=== PATIENT | female | born 1975 | race African-American/Black ===

== ENCOUNTER 2019-11-26 22:11 | Emergency (ER) | payer OTHER, SELFPAY ==
[2019-11-26 22:12] VITALS: BP 196/111; PULSE 106; RESP 18; TEMP 37.5; O2SAT 100; BMI 29.3
--- NOTE | 2019-11-26 22:20 | EKG12_ITS ---
Test Reason : CP Blood Pressure : / mmHG Vent. Rate : 093 BPM Atrial Rate : 093 BPM P-R Int : 146 ms QRS Dur : 074 ms QT Int : 364 ms P-R-T Axes : 046 013 029 degrees QTc Int : 452 ms Normal sinus rhythm Normal ECG Confirmed by AYESHA YAN ([id number]), publishing editor TIMOTHY LANGFORD ([id number]) on 11/30/2019 10:35:03 AM Referred By: No Primary Care Physician Confirmed By:AYESHA YAN
--- NOTE | 2019-11-26 22:30 | ED.RN ---
NO OLD EKG
[2019-11-26 22:33] VITALS: PULSE 91; RESP 19; O2SAT 100
--- NOTE | 2019-11-26 22:36 | US_ITS ---
STUDY: ABDOMINAL ULTRASOUND - RIGHT UPPER QUADRANT REASON FOR VISIT: Female, 43 years old Question of sludge in gallbladder, solitary versus multiple gallbladder calculi. History of pain nausea and vomiting TECHNIQUE: Ultrasound evaluation of the right upper quadrant was performed with real-time and static fairchild-scale imaging. TECHNICAL QUALITY: Adequate. COMPARISON: None. FINDINGS: Liver: The liver measures 70 cm. There is increased echogenicity consistent with fatty infiltration. The bile ducts are within normal limits. There is hepatic color flow. The direction of portal flow is hepatopetal. There is no demonstrated mass lesion. Gallbladder: Normal distended gallbladder. The gallbladder wall measures 2.4 mm. There is a negative sonographic Poole''s sign. There is no pericholecystic fluid. There is biliary sludge dependent within the gallbladder. There there is a cluster of echogenic foci which may represent a single complex gallbladder calculus of 1.3 cm versus multiple smaller adjacent calculi. Common Bile Duct (C.B.D.): The common bile duct measures 2.6 mm. Pancreas: Normal size of the head, body and tail of the pancreas. There is normal echogenicity of the pancreas. There is no demonstrated pancreatic mass or cyst. Right Kidney: Normal size of the right kidney. The right kidney measures 10.5 x 6 x 4.5 cm. Normal renal cortex. The right cortex measures 1.4 cm. There is no demonstrated renal mass or cyst. There is no right hydronephrosis. US/Gallbladder IMPRESSION: Gallbladder sludge and conglomeration of complex calcification either a single calculus versus adjacent multiple smaller calculi. Mild hepatomegaly and hepatic steatosis. No gallbladder inflammation, hydronephrosis, ascites. Electronically Signed: Katja Magana MD at 23:39 EST , Service support ,
--- NOTE | 2019-11-26 22:37 | ED.DCSUM_ITS ---
History of Present Illness Chief Complaint: Chest Pain Narrative: Patient is a 43-year-old female who presents with chief complaint of chest pain. However when asked to point to where the pain is she indicates that it is epigastric. Pain radiates through to the back and she also has right shoulder pain. Her pain initially began about 6 PM, 4 to 5 hours before presentation and acutely worsened about 1 hour later. She notes that her pain is colicky, it waxes and wanes. She describes it as cramping and squeezing. No shortness of breath. No diaphoresis. She does report chills and sweats but has not checked a temperature. No relieving factors. Her pain is worse when she sits forward. She also had nausea and vomiting last night but has had no further vomiting today. She has had diarrhea yesterday and today. No abdominal surgeries. She denies medical history. No diabetes, hypertension, hyperlipidemia. Past Medical History - Allergies and Home Meds Allergies/Adverse Reactions: Allergies No Known Allergies Allergy (Verified 11/26/19 22:13) Primary Care Physician: NOT,DEFINED [NON-STAFF] - Past Medical History: None Smoking Status: Current every day smoker Review of Systems All systems negative except as indicated General: Reports: Chills, Sweats Eyes: Denies: Visual changes - bilaterally ENT: Denies: Bilateral ear pain Cardiovascular: Reports: Chest pain Respiratory: Denies: Dyspnea Gastrointestinal: Reports: Abdominal pain, Nausea, Vomiting, Diarrhea Musculoskeletal: Denies: Myalgias, Arthralgias Skin: Denies: Rash Hematologic: Denies: Easy bruising Allergy: Denies: Uticaria Physical Exam Vital Signs/Narrative: Vital Signs Temp Pulse Resp BP Pulse Ox 11/26/19 22:33 91 19 H 100 11/26/19 22:12 99.5 F H 106 H 18 196/111 H 100 Inital Vital Signs reviewed: Yes General: Well nourished Head: Normocephalic Eyes: EOMI ENT: Moist mucous membranes Neck: Supple Cardiovascular: Regular rhythm, Tachycardia Respiratory: No distress, CTA bilaterally Abdomen: Soft, Tender, - - Mild epigastric abdominal tenderness without guarding without rebound. Negative for: Guarding, Rebound tenderness, Poole's sign Skin: Normal color Neurological: Alert Psychological: Normal affect Diagnostic/Tx/Re-eval Impressions Gallbladder Ultrasound 11/26/19 22:36 IMPRESSION: Gallbladder sludge and conglomeration of complex calcification either a single calculus versus adjacent multiple smaller calculi. Mild hepatomegaly and hepatic steatosis. No gallbladder inflammation, hydronephrosis, ascites. Electronically Signed: Katja Magana MD at 23:39 EST , Service support , Chest X-Ray 11/26/19 23:06 IMPRESSION: No pulmonary edema, congestive heart failure or confluent pneumonia. Electronically Signed: Katja Magana MD at 23:21 EST , Service support , 11/26/19 22:36 Gallbladder [US] Stat 11/26/19 23:06 CXR [Chest PA and Lateral] [RAD] Stat Laboratory Results 11/26/19 11/26/19 22:25 22:25 WBC 2.7 L RBC 4.43 Hgb 13.7 Hct 40.5 MCV 91.4 MCH 30.9 MCHC 33.8 RDW Std Deviation 39.1 RDW Coeff of Trini 11.5 L Plt Count 230 MPV 10.0 Immature Gran % (Auto) 0.400 Neut % (Auto) 43.8 L Lymph % (Auto) 29.9 [place] % (Auto) 24.8 H Eos % (Auto) 0.7 Baso % (Auto) 0.4 Absolute Neuts (auto) 1.2 L Absolute Lymphs (auto) 0.82 L Nucleated RBC % 0 Sodium 135 L Potassium 3.0 L Chloride 101 Carbon Dioxide 30.0 Anion Gap 4 L BUN 10 Creatinine 0.92 Estim Creat Clear Calc 72.41 Est GFR (MDRD) Af Amer 86 Est GFR (MDRD) Non-Af 71 BUN/Creatinine Ratio 10.8 Glucose 105 Calcium 8.6 Total Bilirubin 0.20 AST 16 ALT 23 Alkaline Phosphatase 41 L Troponin I < 0.015 Total Protein 7.9 Albumin 3.7 Globulin 4.2 Albumin/Globulin Ratio 0.9 Lipase 201 - Medical Decision Making Patient was treated with IV fluids, morphine, Zofran. She does feel better on reevaluation. Labs notable only for hypokalemia. This was replaced orally. EKG showed normal sinus rhythm at a rate of 93 with no acute ischemic changes. Chest x-ray unremarkable. Right upper quadrant ultrasound shows gallstones without evidence of acute cholecystitis. On further history patient notes that she did eat [place] fried chicken before her pain began today. Her presentation is most consistent with biliary colic. She was advised on dietary management, avoiding fatty or greasy foods. She was given outpatient referral for surgical follow-up. She was instructed on specific signs and symptoms which should prompt return here to the emergency department and the patient was discharged. ED Disposition - Plan for ED Patient: Disposition: Home or Assisted Living Diagnosis: Biliary colic, Hypokalemia Instructions: BILIARY COLIC with Gallstone (Confirmed) Prescriptions: Potassium Chloride [K-Dur] 20 meq PO DAILY #5 tab Prescription Printed Referrals: NOT,DEFINED [NON-STAFF] - Ruslan Mccord MD [STAFF PHYSICIAN] -
[2019-11-26] MEDS: Ondansetron 4 MG/2 ML Vial IV (22:43)
[2019-11-26] MEDS: Morphine 4 MG/ML Syringe IV (22:43)
[2019-11-26 23:04] LABS: Absolute Lymphocyte Count 0.82 X10^3/uL (0.83-4.51); Absolute Neutrophil Count 1.2 X10^3/uL (2.0-7.7); Basophil# 0.01 X10^3/uL; Basophil% 0.4 % (0-1); Eosinophil# 0.02 X10^3/uL; Eosinophils% 0.7 % (0-5); Hematocrit 40.5 % (37-47); Hemoglobin 13.7 g/dL (12.0-15.0); Lymphocyte # 0.82 X10^3/ul (4.0); Lymphocyte % 29.9 % (19-41); Mean Corp Hgb Conc 33.8 g/dL (32-36); Mean Corpuscular Hgb 30.9 pg (27.0-32.0); Mean Corpuscular Volume 91.4 fL (81-99); Monocyte# 0.68 X10^3/uL; Monocyte% 24.8 % (0-10); NRBC Flagged by Analyzer 0 % (0-5); Neutrophil % 43.8 % (47-70); Platelet Count 230 K/mm3 (150-450); RBC Distribution Width CV 11.5 % (11.6-14.6); RBC Distribution Width SD 39.1 fl (35.1-43.9); Red Blood Count 4.43 M/mm3 (4.2-5.4); White Blood Count 2.7 K/mm3 (4.4-11.0)
--- NOTE | 2019-11-26 23:06 | RAD_ITS ---
STUDY: X-RAY CHEST REASON FOR EXAM: Female, 43 years old. CHEST PAIN TECHNIQUE: PA and lateral views of the chest. COMPARISON: None. FINDINGS: There are superimposed monitor leads. The lungs are clear and expanded. There is no demonstrated pleural abnormality. Normal size heart. Normal mediastinum and janet. Normal visualized pulmonary arteries. Normal visualized aortic arch and descending thoracic aorta. Normal visualized thoracic spine. Normal visualized ribs, clavicles, and shoulders. There is no demonstrated abnormality of the visualized soft tissue structures of the upper abdomen. RAD/Chest PA and Lateral IMPRESSION: No pulmonary edema, congestive heart failure or confluent pneumonia. Electronically Signed: Katja Magana MD at 23:21 EST , Service support ,
[2019-11-26] MEDS: 0.9% Normal Saline 1,000 ML 1000 ML IV (23:26)
[2019-11-26 23:27] VITALS: BP 148/102; PULSE 90; RESP 14; O2SAT 22
[2019-11-26 23:29] LABS: ALB/GLOB Ratio 0.9 RATIO (0.9-2.4); AST(SGOT) 16 U/L (15-37); Alanine Aminotransfer ALT/SGPT 23 U/L (13-56); Albumin, Serum 3.7 g/dL (3.2-5.0); Alkaline Phosphatase 41 U/L (45-117); Anion Gap 4 (5-15); BUN 10 mg/dL (7-18); BUN/Creat Ratio 10.8 RATIO (10-20); Calcium,Total 8.6 mg/dL (8.5-10.1); Chloride 101 mmol/L (98-107); Creatinine, Serum 0.92 mg/dL (0.55-1.02); EST Glomerular Filtration Rate 71 mL/min (>60); Est Glom Filt Rate - Afr Amer 86 mL/min (>60); Estimated Creatinine Clearance 72.41 ml/min; Globulin 4.2 g/dL (2.2-4.2); Glucose 105 mg/dL (74-106); Lipase 201 U/L (73-393); Protein, Total 7.9 g/dL (6.4-8.2); Sodium Level 135 mmol/L (136-145)
[2019-11-27] MEDS: Ketorolac 30 MG/ML Syringe IV (00:23)
[2019-11-27 00:33] VITALS: BP 148/100; PULSE 80; RESP 16; O2SAT 99
== END 2019-11-27 00:34 | disposition home or self-care (01) ==
PROVIDERS: Emergency Provider Emergency Medicine
DX: K80.50 Calculus of bile duct without cholangitis or cholecystitis without obstruction (principal); E87.6 Hypokalemia; F17.200 Nicotine dependence, unspecified, uncomplicated; K76.0 Fatty (change of) liver, not elsewhere classified
CPT/HCPCS: 71046; 76705; 80053; 83690; 84484; 85025; 93005; 96361; 96374; 96375; 99284; J7030; A4216; J2405

== ENCOUNTER → 2019-12-10 13:30 | Outpatient (CLI) | payer OTHER, SELFPAY ==
[2019-12-07 15:19] VITALS: BMI 29.3
[2019-12-10 13:34] LABS: Bacteria 0 SEEN /hpf (None Seen); Mucous, Urine 0 SEEN /hpf (<or=2+); Red Blood Cells-Urine 0 SEEN /hpf (0-5); Squamous Epithelial Cells - UA 0 SEEN /hpf (5-10); White Blood Cells 0 SEEN /hpf (0-5)
[2019-12-10 15:37] LABS: Color, Urine Yellow (Yellow); Glucose, Dipstick Normal (Normal); Ketone-Dipstick Negative (Negative); Leukocyte Esterase-Dipstick Negative /ul (Negative); Nitrite-Dipstick Negative (Negative); Occult Blood-Urine Negative /ul (Negative); Protein-Dipstick Negative (Negative); Specific Gravity, Urine 1.005 (1.002-1.030); Urine Bilirubin Dipstick Negative (Negative); Urine Clarity Clear (Clear); Urine Urobilinogen Normal (Normal)
[2019-12-10 15:38] LABS: Absolute Lymphocyte Count 1.52 X10^3/uL (0.83-4.51); Absolute Neutrophil Count 2.1 X10^3/uL (2.0-7.7); Basophil# 0.03 X10^3/uL; Basophil% 0.7 % (0-1); Eosinophil# 0.03 X10^3/uL; Eosinophils% 0.7 % (0-5); Hematocrit 40.8 % (37-47); Hemoglobin 13.6 g/dL (12.0-15.0); Lymphocyte # 1.52 X10^3/ul (4.0); Lymphocyte % 35.6 % (19-41); Mean Corp Hgb Conc 33.3 g/dL (32-36); Mean Corpuscular Hgb 30.5 pg (27.0-32.0); Mean Corpuscular Volume 91.5 fL (81-99); Mean Platelet Vol. 10.2 fl (6.2-12.0); Monocyte# 0.61 X10^3/uL; Monocyte% 14.3 % (0-10); NRBC Flagged by Analyzer 0 % (0-5); Neutrophil # 2.07 X10^3/uL (2.7-7.7); Neutrophil % 48.5 % (47-70); Platelet Count 255 K/mm3 (150-450); RBC Distribution Width CV 11.9 % (11.6-14.6); RBC Distribution Width SD 40.1 fl (35.1-43.9); Red Blood Count 4.46 M/mm3 (4.2-5.4); White Blood Count 4.3 K/mm3 (4.4-11.0)
[2019-12-10 15:40] LABS: Urine Chloride 44 mmol/L (Not Establ.); Urine Sodium 44 mmol/L (Not Establ.)
[2019-12-10 15:55] LABS: AST(SGOT) 18 U/L (15-37); Alanine Aminotransfer ALT/SGPT 26 U/L (13-56); Alkaline Phosphatase 36 U/L (45-117); Anion Gap 4 (5-15); BUN 10 mg/dL (7-18); Calcium,Total 8.8 mg/dL (8.5-10.1); Chloride 103 mmol/L (98-107); Cholesterol 219 mg/dL (200); Creatinine, Serum 0.72 mg/dL (0.55-1.02); EST Glomerular Filtration Rate 95 mL/min (>60); Est Glom Filt Rate - Afr Amer 115 mL/min (>60); Globulin 4.1 g/dL (2.2-4.2); Glucose 98 mg/dL (74-106); High Density Lipoprotein 86 mg/dL; Protein, Total 8.1 g/dL (6.4-8.2); Sodium Level 136 mmol/L (136-145); Thyroid Stim Hormone (TSH) 0.91 uIU/mL (0.358-3.74); Triglycerides 102 mg/dL; Very Low Density Lipoprotein 20 mg/dL (5-40)
== END ==
LOC: MFPLAB 13:31
PROVIDERS: PCP Family Medicine; Referring Provider Family Medicine; Visit Provider Family Medicine
DX: I10 Essential (primary) hypertension (principal); R00.2 Palpitations
CPT/HCPCS: 36415; 80053; 80061; 81001; 82436; 83735; 84133; 84300; 84443; 85025

== ENCOUNTER 2019-12-18 07:30 | Day surgery (SDC) | payer OTHER, SELFPAY ==
--- NOTE | 2019-12-07 04:20 | HP_ITS ---
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 Is patient in pain?: Yes (ruq abdomen) Allergies No Known Allergies Allergy (Verified 12/07/19 15:18) Medications amlodipine 10 mg tablet 10 mg PO DAILY #7 tab 12/07/19 [Rx Confirmed 12/07/19] multivitamin 1 tab PO DAILY 12/07/19 [History] PFSH Surgical History History of right salpingo-oophorectomy (Acute) Family History Father Cancer kidney Mother Hypertension Brother Asthma Social History (Updated 12/07/19 @ 16:20 by Ruslan Mccord MD) Smoking Status: Current every day smoker alcohol intake: current alcohol intake frequency: holidays/special occasions only HPI HPI HPI: MONICA HENRY, is a 43 F who presents to the office today for HPI HPI Surgical H&P: Yes HPI: MONICA HENRY, is a 43 F who presents to the office today for surgical consultation regarding episode of epigastric pressure pain. The patient was seen at the [facility] emergency room on November 26, 2019 because of chest pain. She states that she has had actually multiple previous episodes but this was very severe. She just did not feel well prior to Bowtuesday. She had a decreased appetite. She had just some water on that day felt nauseated had a large emesis. She felt hot and cold. The next day she thought she felt better so she had a little bit of fried chicken and 45 minutes thereafter had severe epigastric pain diarrhea. She was seen in the emergency room. Pertinent findings there included blood pressure of 196/111. Her temperature was 99.5. White blood cell count slightly low at 2.7 hemoglobin 13.7 hematocrit 40.5 platelet count 230,000 with a normal shift. Her liver function tests were normal. BUN is 10 and creatinine 0.92. Potassium was 3. A gallbladder ultrasound was obtained showing that the bile duct was of normal size 2.6 mm. The gallbladder wall measured 2.4 mm. There was sludge and a cluster of echogenic foci consistent with a complex gallstone or several stones adjacent. It is of note that her blood pressure was recorded at 196/111 On presentation today her blood pressure was 191/125. After the history and physical her blood pressure was 177/130 on the right and 177/110 on the left. The patient does not have a previous primary care physician. ROS General General: No weight change, appetite, fatigue, colon cancer, breast cancer or weakness HEENT HEENT: No difficulty swallowing, eye injury, eye surgery, swollen glands or hoarseness Endo Endocrine: No thyroid disease, diabetes mellitus, thyroid cancer, Hair loss, heat intolerance or cold intolerance Skin Skin: No rash or changing moles Breast Breast: No left breast lump, right breast lump, nipple discharge, breast pain, abnormal mammogram, abnormal US or breast enlargement Musc Musculoskeletal: No back problems, arthritis, rheumatoid arthritis, gout or joint pain Cardio Cardiovascular: No murmur, pacemaker, heart disease, atrial fibrillation, high blood pressure, heart attack, heart stent, palpitations, shortness of breat with exertion or chest pain Psych Psychiatric: No depression, anxiety or hearing voices Resp Respiratory: No shortness of breath, No sleep apnea, No cough, No COPD, No asthma, No emphysema, No wheezing Gastro Gastrointestinal: No abdominal pain, No nausea or vomiting, No diarrhea, No constipation, No blood in stool, No acid reflux, No hemorrhoids, No ulcers, Yes gallbladder problem, No black,tarry stools Elian Hematologic: No blood thinners, No blood disorders, No bleeding, No anemia, No blood clots Neuro Neurologic: No system reviewed and no additional complaints, except as docu, No as per HPI, No abnormal walking, No abnormal hearing, No abnormal movements, No abnormal speech, No behavioral changes, No burning sensations, No confusion, No seizure-like activity, No unsteadiness, No dizziness, No localized weakness, No frequent falls, No headache(s), No lack of coordination, No loss of vision, No memory loss, No numbness, No other visual disturbances, No radiating pain, No restless legs, No sensory deficit, No fainting, No tingling, No tremor(s), No weakness, No other Exam Const General: cooperative, healthy appearing, comfortable, no acute distress Nutritional Appearance: overweight Orientation: alert, awake, oriented x3 HENMT Head: normal to inspection Chest Chest palpation & inspection: normal inspection of the chest Breast Palpation: No nipple discharge Resp Effort & Inspection: normal respiratory effort Auscultation: clear to auscultation bilaterally Cardio Rate: regular rate Rhythm: regular rhythm Heart Sounds: no murmurs GI Palpation: soft, no hepatosplenomegaly Auscultation: normal bowel sounds Neuro Cognition: normal cognition Extrem General: no calf tenderness bilaterally Psych Affect: normal affect Assessment & Plan Problems 1. Calculus of gallbladder with chronic cholecystitis without obstruction K80.10 2. Secondary hypertension I15.9 3. Hypokalemia E87.6 Plan The patient still is not feeling quite right. She has a epigastric pressure. Is not clear whether the mild hypokalemia was secondary to her episode of emesis but this was one episode and she has not had further vomiting. She remains hypertensive. Although I am very suspicious that she has non- resolving chronic cholecystitis and her EKG from her emergency room visit was not remarkable I certainly do not want to miss an occult cardiac phenomena and at this range she would not meet criteria for her general anesthesia. I did have the opportunity to kindly speak to Dr Jaun Bonds. We will assist in starting the patient on amlodipine 10 mg orally daily to start today. Dr. Bonds has agreed to see the patient on Tuesday December 10, 2019. If possible I would like to proceed with a laparoscopic cholecystectomy the week of the as well if the patient can be medically maximized greatly stabilize. In detail I have discussed the technique, benefit, risk of alternatives of a laparoscopic cholecystectomy with cholangiograms to her. She has had an opportunity to ask and have questions answered. We will schedule and proceed if medically appropriate. I appreciate the opportunity of assisting with her surgical care Cc: Dr Jaun Mccord M.D., F.A.C.S. Medications New: amlodipine 10 mg PO DAILY 7 tabs 0RF Coding Level of Care Code Off vis,new,level 4 Diagnoses Calculus of gallbladder with chronic cholecystitis without obstruction K80.10 ??Cholelithiasis location: gallbladder ??Biliary obstruction: without biliary obstruction Secondary hypertension I15.9 ??Hypertension type: unspecified secondary hypertension Hypokalemia E87.6 12/07/19 1620 <Electronically signed by Ruslan helm MD> Date _ Ruslan Mccord MD I have re-examined the patient. There are no clinical changes since date of exam.
[2019-12-07 15:19] VITALS: BMI 29.3
[2019-12-18] VITALS (10 sets, daily range): BP systolic 104–138; BP diastolic 72–85; PULSE 70–81; RESP 14–20; TEMP 36.1–36.8; O2SAT 90–100; BMI 28.7
--- NOTE | 2019-12-18 | GALL_PTH ---
PATIENT: MONICA HENRY [place] [facility] [place] U#:[id number] AGE/SX: 44/F ROOM: RE12/18/[address]: Dr. Ruslan Mccord MD : 1975 BED: DIS: 12/18/2019 SPEC #: [id number] RECD: 12/18/19 12:07 STATUS: OFELIA ERNESTINA #: [id number] RAHEL: 12/18/19 00:[address]: Ruslan Mccord DEPT: SURGICAL PATHOLOGY RECD BY: Timoteo Hernandez ENTERED: 12/18/19 12:08 SP TYPE: MARGIE GOVEA DR: Dr. Jaun Bonds MD Tissues: Gallbladder, NOS Procedures: Surgery Specimen Level III HEADER OPERATION: Laparoscopic cholecystectomy with IOC PRE-OP DIAGNOSIS: Calculus of gallbladder with chronic cholecystitis TISSUE SUBMITTED: Gallbladder MICROSCOPIC DIAGNOSIS Gallbladder, cholecystectomy: Chronic cholecystitis. No stones are identified in the container or in the gallbladder. SJ:hermelindo 12/19/19 MICROSCOPIC DESCRIPTION Slides are reviewed. GROSS DESCRIPTION Received is one container labeled with the patient's name and designated gallbladder. The specimen consists of a gallbladder measuring 6 cm in length and up to 3 cm in diameter. The external surface is pink-olivares, smooth and glistening for the most part. Focally it is granular, hemorrhagic and contains cautery artifact. The gallbladder contains green-yellow mucoid bile. No stones are identified in the container or in the gallbladder. The mucosa is bile-stained and without any mass lesions. The gallbladder wall measures up to 0.2 cm in thickness. Recovery Auditor sections from the gallbladder and the cystic duct are submitted in one cassette. / CHUCHO:hermelindo 12/18/19 TC:3 CPT: 74988
[2019-12-18 07:56] LABS: Internal QC Validated? YES +Cl - CLEAR BKGD; Pregnancy, Urine Negative Negative
[2019-12-18] MEDS: Lactated Ringers 1,000 ML 100 ML IV (08:33)
--- NOTE | 2019-12-18 08:35 | DCINST_ITS ---
Discharge Diet: Light diet - advance as tolerated - if you have questions about your diet instructions, please talk to you doctor. Discharge Activity: May Not Drive - for 3-5 days or while taking narcotic pain medicine. May shower in (days): 1 Lifting Restrictions: 10 pounds Call your doctor if your incision/area has: Continuous Slow Oozing, Sudden Increased Bleeding, Increased Pain/ Swelling, Increased Redness, Foul Smelling Discharge Call your doctor if you observe: Fever of 101 or Higher Suture Line Care: Avoid Pulling/Pushing, Avoid Pinching/Bending Additional Dressing/Incision Instructions:: Change or remove dressing in 4 days. Leave steri-strips in place for 1 week. Allergies/Adverse Reactions: Allergies No Known Allergies Allergy (Verified 12/18/19 08:05) Medications to take at Discharge amlodipine 10 mg tablet 10 mg PO DAILY #7 tab 12/07/19 multivitamin 1 tab PO DAILY 12/07/19 Hydrochlorothiazide [Hctz] 25 mg PO DAILY 12/12/19 Metoprolol Tartrate [Lopressor (Beta Anthony)] 25 mg PO DAILY 12/12/19 Primary Care Physician: Jaun Bonds MD [Primary Care Provider] - Test Results: Test results from this visit will be discussed in further detail at your follow- up appointment, if applicable. Please Follow Up With: Ruslan Mccord MD - [phone] When: Call to make an appointment to be seen in about 10 days.
[2019-12-18] MEDS: Cefazolin 2 GM in 0.9% Normal Saline 100 ML IV (09:02)
--- NOTE | 2019-12-18 09:50 | RAD_ITS ---
CLINICAL HISTORY: Female, 44 years old. Cholecystectomy PROCEDURE: CHOLANGIOGRAM - intraoperative CONSENT: Informed consent obtained SEDATION: General FLUOROSCOPY TIME (if supplied): (12) seconds Placement of the catheter and the procedure were performed by: Dr. Mccord Fluoroscopy was provided by Antony Hodge, who was present in the room time of the procedure. TECHNIQUE: (All elements of maximal sterile barrier technique followed, including US elements as applicable) After removal of the gallbladder, the cystic duct remnant was cannulized and contrast injected in a retrograde manner. There is normal distention of the intra and extrahepatic biliary tree without evidence of retained stone, stricture or extravasation of contrast outside the lumen of the biliary tree. Normal flow of contrast into the duodenum. RAD/Cholangiogram/ O R,Initial IMPRESSION: Normal intraoperative cholangiogram Electronically Signed: Jayson Mosquera MD at 10:33 EST , Service support ,
--- NOTE | 2019-12-18 10:12 | OP.PCM_ITS ---
Problem List (1) Cholelithiasis with chronic cholecystitis Status: Chronic Qualifiers: Cholelithiasis location: gallbladder Biliary obstruction: without biliary obstruction Qualified Code(s): K80.10 - Calculus of gallbladder with chronic cholecystitis without obstruction Report of Operation Date of Procedure: 12/18/19 Pre-Operative Diagnosis: Chronic cholecystitis cholelithiasis Post-Operative Diagnosis: Same Surgery/Procedure Performed:: Laparoscopic cholecystectomy with cholangiograms Description of Surgical Findings:: Timeout and informed consent was obtained. 44-year-old female was taken the operating room. Placed upon the table. Underwent general endotracheal intubation anesthesia. Ancef 2 g given intravenously. The abdomen was sterilely prepped and draped. 0.5% Marcaine was used as local anesthetic. Skin sites were pre-anesthetized. A total of 30 cc was used. A vertical infrau mbilical incision was created holding sutures of 0 Vicryl placed varies needle inserted saline drop test performed the abdomen was insufflated with CO2 to pressure of 10 mmHg pressure. 10mm trocar inserted. 10 laparoscope inserted. No evidence or trocar injuries. There were some mild adhesions of omentum to the gallbladder. 5 mm trocar was placed in the epigastric area mid abdomen right upper quadrant. The gallbladder was distracted. The adhesions were sharply and bluntly lysed. The infundibular area was dissected free. The cystic duct cystic artery identified. There was some backbleeding from the gallbladder. The cystic artery was secured with 2 hemo-lock clips. Hem-o-sergey clip was placed on the cystic duct and through a 14-gauge Angiocath a cholangiogram catheter was inserted. Fluoroscopically control cholangiograms were obtained demonstrating normal ductal anatomy and free flow into the small bowel. Cholangiogram catheter was removed. An additional hemo-lock clip was pl aced on the cystic duct stump prior to transecting it. The gallbladder was dissected free from the liver bed. Further hemostasis was obtained with hemo- lock clips were indicated as well as electrocautery. The gallbladder was completely dissected free. Hemostasis was intact. To further assure hemostasis a piece of fibrillar was placed in the liver bed. The gallbladder space moved within a true retrieval bag. The right upper quadrant was irrigated and aspirated free of excess fluid. The gallbladder was exited the umbilicus. The remaining trochars were inspected. Hemostasis was intact. The trochars were removed. The abdomen was allowed to deflate of the CO2. The fascia at the umbilicus was approximated with interrupted 0 Vicryl [id number] suture. Skin edges were approximated with interrupted 4-0 Monocryl subdermal stitches. Steri-Strips Telfa and OpSite dressings applied. Sponge and instrument and needle counts were reported to the surgeon be correct. Specimens gallbladder. Drains none. Blood loss minimal. The patient was taken to the recovery area in satisfactory condition without apparent complication Ruslan Mccord M.D., F.A.C.S. Type of Anesthesia:: General Anesthesiologist: Shahid Fong
[2019-12-18] MEDS: Bupivacaine Mpf 0.5% 30 ML VIAL (10:18)
[2019-12-18] MEDS: HYDROcodone Bitartrate/Apap 5/325 Tablet PO (12:46)
== END 2019-12-18 13:26 | disposition home or self-care (01) ==
LOC: SDC 07:30 → AC 07:31
PROVIDERS: Anesthesiology; PCP Family Medicine; Referring Provider Surgery; Visit Provider Surgery
PROC: (CPT 47610; principal; 2019-12-18 09:30)
DX: K81.1 Chronic cholecystitis (principal); I15.9 Secondary hypertension, unspecified; E87.6 Hypokalemia; F17.200 Nicotine dependence, unspecified, uncomplicated; Z79.899 Other long term (current) drug therapy
CPT/HCPCS: 00790; 47563; 74300; 76000; 81025; 88304; 93005; J7120; J2405

== ENCOUNTER → 2019-12-31 10:11 | Outpatient (CLI) | payer OTHER, SELFPAY ==
[2019-12-18 08:08] VITALS: BMI 28.7
[2019-12-31 12:36] LABS: Hematocrit 38.2 % (37-47); Hemoglobin 12.9 g/dL (12.0-15.0); Mean Corp Hgb Conc 33.8 g/dL (32-36); Mean Corpuscular Volume 91.8 fL (81-99); Platelet Count 304 K/mm3 (150-450); RBC Distribution Width CV 11.7 % (11.6-14.6); RBC Distribution Width SD 39.6 fl (35.1-43.9); Red Blood Count 4.16 M/mm3 (4.2-5.4); White Blood Count 6.5 K/mm3 (4.4-11.0)
[2019-12-31 12:44] LABS: ALB/GLOB Ratio 0.9 RATIO (0.9-2.4); AST(SGOT) 35 U/L (15-37); Alanine Aminotransfer ALT/SGPT 65 U/L (13-56); Albumin, Serum 3.6 g/dL (3.2-5.0); Alkaline Phosphatase 47 U/L (45-117); Anion Gap 4 (5-15); BUN 16 mg/dL (7-18); BUN/Creat Ratio 22.2 RATIO (10-20); Chloride 105 mmol/L (98-107); Creatinine, Serum 0.72 mg/dL (0.55-1.02); EST Glomerular Filtration Rate 94 mL/min (>60); Est Glom Filt Rate - Afr Amer 114 mL/min (>60); Globulin 4.2 g/dL (2.2-4.2); Glucose 107 mg/dL (74-106); Potassium 3.5 mmol/L (3.5-5.1); Protein, Total 7.8 g/dL (6.4-8.2); Sodium Level 137 mmol/L (136-145)
== END ==
PROVIDERS: PCP Family Medicine; Referring Provider Family Medicine; Visit Provider Physician Assistant
DX: G89.18 Other acute postprocedural pain (principal); Z90.49 Acquired absence of other specified parts of digestive tract
CPT/HCPCS: 36415; 80053; 85027

== ENCOUNTER → 2020-07-11 07:01 | Outpatient (CLI) | payer OTHER, SELFPAY ==
[2019-12-18 08:08] VITALS: BMI 28.7
--- NOTE | 2020-07-11 07:04 | BI_ITS ---
MAMMOGRAPHY - BILATERAL SCREENING REASON FOR EXAM: Female, 44 years old. Routine annual screening examination. PERTINENT HISTORY: Aunt with breast cancer. TECHNIQUE: Digital bilateral breast joseph (3D mammographic acquisition) in the CC and MLO projections. 2-D mediolateral oblique (MLO) and craniocaudad (CC) views of both breasts were obtained. CAD: Full Field Digital Mammography with Computer Added Detection was performed. COMPARISON: None. Baseline examination. FINDINGS: Breast Composition: The breasts are heterogeneously dense, which may obscure small masses. There are no dominant masses or suspicious calcifications. No other significant abnormalities are identified. BI/SCREEN MAMM (CAD) W/JOSEPH BILAT IMPRESSION: Negative screening mammogram. Yearly followup mammogram recommended. (A) ASSESSMENT CATEGORY: BIRADS Category 1: Negative. A letter regarding these results will be sent to the patient by the facility within 30 days. Approximately 10% of breast cancers are not detected by mammography. A normal mammogram should not delay biopsy of a clinically suspicious abnormality. [id number] Electronically Signed: Mark Robbins, at 8:12 EDT , Service support ,
== END ==
PROVIDERS: PCP Family Medicine; Referring Provider Family Medicine; Visit Provider Family Medicine
DX: Z12.31 Encounter for screening mammogram for malignant neoplasm of breast (principal); Z80.3 Family history of malignant neoplasm of breast
CPT/HCPCS: 77063; 77067

== ENCOUNTER → 2020-08-04 15:03 | Outpatient (CLI) | payer OTHER, SELFPAY ==
[2019-12-18 08:08] VITALS: BMI 28.7
[2020-08-07 20:49] LABS: HPV Reflexed? NOT INDICATED
== END ==
PROVIDERS: PCP Family Medicine; Referring Provider Nurse Practitioner Adult Health; Visit Provider Nurse Practitioner Adult Health
DX: Z01.419 Encounter for gynecological examination (general) (routine) without abnormal findings (principal)
CPT/HCPCS: 88175; G0145

== ENCOUNTER → 2020-10-07 16:45 | Outpatient (CLI) | payer OTHER, SELFPAY ==
[2019-12-18 08:08] VITALS: BMI 28.7
--- NOTE | 2020-10-07 16:50 | RAD_ITS ---
STUDY: X-RAY - RIGHT KNEE REASON FOR EXAM: Female, 44 years old. right knee pain, limited range of motion after injury TECHNIQUE: 4 view(s) of the knee. COMPARISON: None. FINDINGS: Normal visualized distal femur. Normal visualized proximal tibia and fibula. Normal proximal tibiofibular articulation. Normal medial femorotibial compartment. Normal lateral femorotibial compartment. Normal patellofemoral articulation. The soft tissue structures are unremarkable. RAD/Knee 4 or More Views IMPRESSION: Normal x-ray examination of the knee. Electronically Signed: Hunter Angel MD at 17:01 EST Tel , Service support ,
== END ==
PROVIDERS: PCP Family Medicine; Referring Provider Family Medicine; Visit Provider Family Medicine
DX: M25.561 Pain in right knee (principal)
CPT/HCPCS: 73564

== ENCOUNTER → 2021-02-11 08:56 | Outpatient (CLI) | payer OTHER, SELFPAY ==
[2020-12-26 08:06] VITALS: BMI 30.4
[2021-02-11 10:11] LABS: Color, Urine Yellow (Yellow); Glucose, Dipstick Normal (Normal); Ketone-Dipstick Negative (Negative); Leukocyte Esterase-Dipstick 25 /ul (Negative); Nitrite-Dipstick Negative (Negative); Occult Blood-Urine Negative /ul (Negative); Protein-Dipstick 15 mg/dl (Negative); Urine Bilirubin Dipstick Negative (Negative); Urine Clarity Sl. Cloudy (Clear); Urine Urobilinogen Normal (Normal)
[2021-02-11 10:12] LABS: Absolute Lymphocyte Count 1.81 X10^3/uL (0.83-4.51); Absolute Neutrophil Count 1.5 X10^3/uL (2.0-7.7); Basophil# 0.04 X10^3/uL; Eosinophils% 4.8 % (0-5); Hematocrit 41.9 % (37-47); Hemoglobin 13.6 g/dL (12.0-15.0); Lymphocyte # 1.81 X10^3/ul (0.83-4.51); Lymphocyte % 43.1 % (19-41); Mean Corp Hgb Conc 32.5 g/dL (32-36); Mean Corpuscular Hgb 29.2 pg (27.0-32.0); Mean Corpuscular Volume 89.9 fL (81-99); Mean Platelet Vol. 10.1 fl (6.2-12.0); Monocyte# 0.61 X10^3/uL; Monocyte% 14.5 % (0-10); NRBC Flagged by Analyzer 0 % (0-5); Neutrophil # 1.53 X10^3/uL (2.7-7.7); Neutrophil % 36.4 % (47-70); Platelet Count 342 K/mm3 (150-450); RBC Distribution Width SD 39.5 fl (35.1-43.9); Red Blood Count 4.66 M/mm3 (4.2-5.4); White Blood Count 4.2 K/mm3 (4.4-11.0)
[2021-02-11 10:19] LABS: Bacteria 1+ /hpf (None Seen); Mucous, Urine 1+ /hpf (<or=2+); Red Blood Cells-Urine 0-5 SEEN /hpf (0-5); Squamous Epithelial Cells - UA 0-5 SEEN /hpf (5-10); White Blood Cells 0-5 SEEN /hpf (0-5)
[2021-02-11 11:10] LABS: ALB/GLOB Ratio 0.9 RATIO (0.9-2.4); AST(SGOT) 15 U/L (15-37); Alanine Aminotransfer ALT/SGPT 28 U/L (13-56); Albumin, Serum 3.9 g/dL (3.2-5.0); Alkaline Phosphatase 37 U/L (45-117); Anion Gap 4 (5-15); BUN 14 mg/dL (7-18); BUN/Creat Ratio 18.8 RATIO (10-20); Chloride 99 mmol/L (98-107); Cholesterol 231 mg/dL (200); Creatinine, Serum 0.74 mg/dL (0.55-1.02); EST Glomerular Filtration Rate 90 mL/min (>60); Est Glom Filt Rate - Afr Amer 109 mL/min (>60); Globulin 4.4 g/dL (2.2-4.2); Glucose 100 mg/dL (74-106); High Density Lipoprotein 64 mg/dL; Potassium 3.2 mmol/L (3.5-5.1); Protein, Total 8.3 g/dL (6.4-8.2); Sodium Level 135 mmol/L (136-145); Thyroid Stim Hormone (TSH) 0.93 uIU/mL (0.358-3.74); Triglycerides 67 mg/dL; Very Low Density Lipoprotein 13 mg/dL (5-40)
== END ==
PROVIDERS: PCP Family Medicine; Visit Provider Family Medicine
DX: I10 Essential (primary) hypertension (principal)
CPT/HCPCS: 80053; 80061; 81001; 84443; 85025

== ENCOUNTER 2021-08-08 08:33 | Emergency (ER) | payer OTHER, SELFPAY ==
[2021-08-08 08:34] VITALS: BP 144/101; PULSE 119; RESP 18; TEMP 36.1; O2SAT 95; BMI 28.3
--- NOTE | 2021-08-08 08:56 | EDS_ITS ---
HPI History of Present Illness Chief Complaint: Eye Problem Narrative Narrative: Patient presents with right eye pain that began this morning, approximately an hour and a half ago. She states that she went out last evening, and had false eyelashes on, and remove them, and went to sleep. She was able to sleep for hours, but when she woke up this morning, she complains of right eye pain, and difficulty opening it. She endorses photophobia. She describes a burning sensation with mild tearing, but no exudate. No fevers or chills. No loss of vision. She does not wear corrective lenses. She was not doing any grinding of metal yesterday or cause for any foreign body. [facility] Medical History Cholelithiasis with chronic cholecystitis Hypertension Hypokalemia Home Medications amlodipine 10 mg tablet 10 mg PO DAILY #7 tab 12/07/19 [Rx Last Taken 12/18/19 07:15] multivitamin 1 tab PO DAILY 12/07/19 [History Last Taken Unknown] hydrochlorothiazide 25 mg PO DAILY 12/12/19 [History Last Taken Unknown] Allergy/AdvReac Type Severity Reaction Status Date / Time No Known Allergies Allergy Verified 08/08/21 08:36 Family History Father Cancer kidney Mother Hypertension Brother Asthma Surgical History History of right salpingo-oophorectomy Hx of cholecystectomy Social History (Updated 12/26/20 @ 09:[address] 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 HEENT: No sore throat. No neck pain. No loss of vision. No rhinorrhea. Right eye pain with difficulty opening. Mild tearing. Burning sensation right eye. No exudate. Cardiovascular: No chest pain. No palpitations. No pedal edema. Respiratory: No cough, no shortness of breath. Abdominal: No abdominal pain. No nausea. No vomiting. Genitourinary: No dysuria. No hematuria. Musculoskeletal: No myalgias. No arthralgias. Neurologic: No headaches. No dizziness. No lightheadedness. Skin: No rash. No change in color. Psychiatric: No depression. No anxiety. EXAM Physical Exam Narrative Exam Narrative: Afebrile. Vital signs noted. HEENT: Normocephalic. Atraumatic. PERRL, EOMI. Neck soft and supple. No point tenderness or step off. No right eye proptosis. Pupils equal round, and reactive to light bilaterally. Patient having mild difficulty opening right eye. No noted exudate. Positive diffuse conjunctival injection. No noted foreign body. Cardiovascular: Regular rate and rhythm. No murmurs, rubs, or gallops appreciated. Respiratory: No tachypnea. Lungs clear to auscultation bilaterally. Gastrointestinal: Abdomen soft, nontender, with normoactive bowel sounds. No rebound or guarding. Neurological: Awake. Alert. Nonfocal, nonlateralizing. Skin: No rash. Normal color. No pallor. Musculoskeletal: No pedal edema. Full range of motion extremities. Const Vital Signs: 08/08/21 08:34 Temperature 97 F L Temperature Source Temporal Pulse Rate 119 H Respiratory Rate 18 Blood Pressure 144/101 H Blood Pressure Mean 115 Pulse Ox 95 Oxygen Delivery Method Room Air MDM MDM MDM Narrative Medical decision making narrative: Tetracaine was instilled in her right eye. She felt improvement afterwards and was able to open her eye. Fluorescein was also instilled, and she was examined under the slit lamp. She appears to have multiple corneal abrasions. She will take [id number] analgesics. She was given ciprofloxacin ophthalmic drops here in the emergency department to use every few hours and will follow up with ophthalmology on Tuesday. I feel she be discharged safely home with follow-up. Return instructions to the emergency department were reviewed. Patient is agreeable to the plan. Disposition is discharged home in stable condition. Discharge Plan Triage Chief Complaint: Eye Problem ED Provider: Gabriel Jones Dx/Rx/DC Orders Instructions: ED Corneal Abrasion Prescriptions: No Action multivitamin tablet,chewable 1 tab PO DAILY RF: 0 amlodipine 10 mg tablet 10 mg PO DAILY Qty: 7 RF: 0 hydrochlorothiazide 25 MG tablet 25 mg PO DAILY RF: 0 Primary Care Provider: Jaun Bonds Referrals: Jaun Bonds MD [Primary Care Provider] - 08/10/21 Woo Brock MD [STAFF PHYSICIAN] - 08/10/21 Disposition Disposition: Home, Self Care
[2021-08-08] MEDS: Tetracaine 0.5% Ophthalmic Bottle 1 DRP OPHTHALMIC (09:10)
[2021-08-08] MEDS: Fluorescein 1 MG STRIP 1 STRIP OPHTHALMIC (09:10)
[2021-08-08] MEDS: Ciprofloxacin 0.3% 2.5ml Bottle RIGHT EYE (09:42)
== END 2021-08-08 09:38 | disposition home or self-care (01) ==
LOC: ED 09:28
PROVIDERS: Emergency Provider Emergency Medicine; PCP Family Medicine
DX: S05.01XA Injury of conjunctiva and corneal abrasion without foreign body, right eye, initial encounter (principal); X58.XXXA Exposure to other specified factors, initial encounter; Y93.9 Activity, unspecified; Y92.89 Other specified places as the place of occurrence of the external cause; Y99.8 Other external cause status; I10 Essential (primary) hypertension; Z87.891 Personal history of nicotine dependence
CPT/HCPCS: 99283

== ENCOUNTER → 2021-08-31 07:00 | Outpatient (CLI) | payer OTHER, SELFPAY ==
--- NOTE | 2021-08-31 07:02 | BI_ITS ---
MAMMOGRAPHY - BILATERAL SCREENING REASON FOR EXAM: Female, 45 years old. Routine annual screening examination. PERTINENT HISTORY: Aunt with breast cancer. TECHNIQUE: Digital bilateral breast joseph (3D mammographic acquisition) in the CC and MLO projections. 2-D mediolateral oblique (MLO) and craniocaudad (CC) views of both breasts were obtained. CAD: Full Field Digital Mammography with Computer Added Detection was performed. COMPARISON: Comparison is made with prior study discussed 07/11/2020. FINDINGS: Breast Composition: The breasts are extremely dense, which lowers the sensitivity of mammography. There are no dominant masses or suspicious calcifications. Stable small benign-appearing bilateral axillary lymph nodes. No other significant abnormalities are identified. There has been no significant change since the prior study. BI/SCRN MAMM (CAD)W/JOSEPH BILAT IMPRESSION: Stable bilateral screening mammogram. Yearly follow-up mammogram recommended. (A) ASSESSMENT CATEGORY: BIRADS Category 2: Benign. A letter regarding these results will be sent to the patient by the facility within 30 days. Approximately 10% of breast cancers are not detected by mammography. A normal mammogram should not delay biopsy of a clinically suspicious abnormality. [id number] Electronically Signed: Mark Robbins MD at 8:12 EST , Service support ,
== END ==
PROVIDERS: PCP Family Medicine; Referring Provider Family Medicine; Visit Provider Family Medicine
DX: Z12.31 Encounter for screening mammogram for malignant neoplasm of breast (principal); Z80.3 Family history of malignant neoplasm of breast
CPT/HCPCS: 77063; 77067

== ENCOUNTER → 2021-10-06 15:10 | Outpatient (CLI) | payer OTHER, SELFPAY ==
[2021-10-06 18:06] LABS: ALB/GLOB Ratio 0.8 RATIO (0.9-2.4); AST(SGOT) 15 U/L (15-37); Alanine Aminotransfer ALT/SGPT 24 U/L (13-56); Albumin, Serum 3.5 g/dL (3.2-5.0); Alkaline Phosphatase 29 U/L (45-117); Anion Gap 7 (5-15); BUN 16 mg/dL (7-18); Calcium,Total 8.9 mg/dL (8.5-10.1); Chloride 102 mmol/L (98-107); Cholesterol 208 mg/dL (200); EST Glomerular Filtration Rate 83 mL/min (>60); Est Glom Filt Rate - Afr Amer 100 mL/min (>60); Globulin 4.3 g/dL (2.2-4.2); Glucose 104 mg/dL (74-106); High Density Lipoprotein 95 mg/dL; Potassium 3.2 mmol/L (3.5-5.1); Protein, Total 7.8 g/dL (6.4-8.2); Sodium Level 137 mmol/L (136-145); Triglycerides 89 mg/dL; Very Low Density Lipoprotein 18 mg/dL (5-40)
== END ==
PROVIDERS: PCP Family Medicine; Visit Provider Family Medicine
DX: I10 Essential (primary) hypertension (principal); E87.6 Hypokalemia
CPT/HCPCS: 36415; 80053; 80061

== ENCOUNTER → 2022-03-17 | Outpatient (CLI) | payer OTHER, SELFPAY | END | disposition home or self-care (01) | PROVIDERS: PCP Family Medicine; Referring Provider Family Medicine; Visit Provider Family Medicine | DX: U07.1 COVID-19 (principal) | CPT/HCPCS: 87635; U0003; U0005 ==

== ENCOUNTER → 2022-04-21 | Outpatient (CLI) | payer OTHER, SELFPAY ==
[2022-04-21 09:39] LABS: Bacteria 0 SEEN /hpf (None Seen); Mucous, Urine 0 SEEN /hpf (<or=2+); Red Blood Cells-Urine 0 SEEN /hpf (0-5); White Blood Cells 0 SEEN /hpf (0-5)
[2022-04-21 09:46] LABS: Absolute Lymphocyte Count 1.19 X10^3/uL (0.83-4.51); Absolute Neutrophil Count 1.9 X10^3/uL (2.0-7.7); Basophil# 0.03 X10^3/uL; Basophil% 0.8 % (0-1); Eosinophil# 0.08 X10^3/uL; Eosinophils% 2.1 % (0-5); Hemoglobin 12.5 g/dL (12.0-15.0); Lymphocyte # 1.19 X10^3/ul (0.83-4.51); Lymphocyte % 31.6 % (19-41); Mean Corp Hgb Conc 33.8 g/dL (32-36); Mean Corpuscular Hgb 30.7 pg (27.0-32.0); Mean Corpuscular Volume 90.9 fL (81-99); Monocyte# 0.53 X10^3/uL; Monocyte% 14.1 % (0-10); NRBC Flagged by Analyzer 0 % (0-5); Neutrophil # 1.93 X10^3/uL (2.7-7.7); Neutrophil % 51.1 % (47-70); Platelet Count 260 K/mm3 (150-450); RBC Distribution Width SD 40.2 fl (35.1-43.9); Red Blood Count 4.07 M/mm3 (4.2-5.4); White Blood Count 3.8 K/mm3 (4.4-11.0)
[2022-04-21 10:13] LABS: ALB/GLOB Ratio 0.9 RATIO (0.9-2.4); AST(SGOT) 21 U/L (15-37); Alanine Aminotransfer ALT/SGPT 32 U/L (13-56); Albumin, Serum 3.7 g/dL (3.2-5.0); Alkaline Phosphatase 29 U/L (45-117); Anion Gap 7 (5-15); BUN 18 mg/dL (7-18); Calcium,Total 9.2 mg/dL (8.5-10.1); Chloride 100 mmol/L (98-107); Cholesterol 227 mg/dL (200); EST Glomerular Filtration Rate 115 mL/min (>60); Est Glom Filt Rate - Afr Amer 139 mL/min (>60); Globulin 4.1 g/dL (2.2-4.2); Glucose 112 mg/dL (74-106); High Density Lipoprotein 96 mg/dL; Potassium 3.4 mmol/L (3.5-5.1); Protein, Total 7.8 g/dL (6.4-8.2); Sodium Level 137 mmol/L (136-145); Thyroid Stim Hormone (TSH) 1.19 uIU/mL (0.358-3.74); Triglycerides 40 mg/dL; Very Low Density Lipoprotein 8 mg/dL (5-40)
[2022-04-21 10:24] LABS: Hemoglobin A1c 5.5 % (3.8-5.6)
[2022-04-21 12:10] LABS: Color, Urine Yellow (Yellow); Glucose, Dipstick Normal (Normal); Ketone-Dipstick Negative (Negative); Leukocyte Esterase-Dipstick Negative /ul (Negative); Nitrite-Dipstick Negative (Negative); Occult Blood-Urine Negative /ul (Negative); Protein-Dipstick Negative (Negative); Specific Gravity, Urine 1.015 (1.002-1.030); Urine Bilirubin Dipstick Negative (Negative); Urine Clarity Sl. Cloudy (Clear); Urine Urobilinogen Normal (Normal)
[2022-04-21 12:16] LABS: Squamous Epithelial Cells - UA 0-5 SEEN /hpf (5-10)
== END | disposition home or self-care (01) ==
LOC: MFPLAB 08:32
PROVIDERS: PCP Family Medicine; Visit Provider Family Medicine
DX: I10 Essential (primary) hypertension (principal); R73.09 Other abnormal glucose
CPT/HCPCS: 36415; 80053; 80061; 81001; 83036; 84443; 85025

== ENCOUNTER → 2022-11-18 | Outpatient (CLI) | payer OTHER, SELFPAY ==
[2022-11-18 17:45] LABS: Absolute Neutrophil Count 2.6 X10^3/uL (2.0-7.7); Basophil# 0.05 X10^3/uL; Eosinophil# 0.15 X10^3/uL; Eosinophils% 3.1 % (0-5); Hematocrit 40.4 % (37-47); Hemoglobin 13.3 g/dL (12.0-15.0); Lymphocyte % 32.7 % (19-41); Mean Corp Hgb Conc 32.9 g/dL (32-36); Mean Corpuscular Hgb 30.1 pg (27.0-32.0); Mean Corpuscular Volume 91.4 fL (81-99); Mean Platelet Vol. 10.1 fl (6.2-12.0); Monocyte# 0.51 X10^3/uL; Monocyte% 10.4 % (0-10); NRBC Flagged by Analyzer 0 % (0-5); Neutrophil # 2.56 X10^3/uL (2.7-7.7); Neutrophil % 52.4 % (47-70); Platelet Count 344 K/mm3 (150-450); RBC Distribution Width CV 11.9 % (11.6-14.6); Red Blood Count 4.42 M/mm3 (4.2-5.4); White Blood Count 4.9 K/mm3 (4.4-11.0)
[2022-11-18 18:20] LABS: ALB/GLOB Ratio 0.9 RATIO (0.9-2.4); AST(SGOT) 20 U/L (15-37); Alanine Aminotransfer ALT/SGPT 36 U/L (13-56); Albumin, Serum 3.9 g/dL (3.2-5.0); Alkaline Phosphatase 28 U/L (45-117); Anion Gap 9 (5-15); BUN 17 mg/dL (7-18); BUN/Creat Ratio 24.6 RATIO (10-20); Chloride 101 mmol/L (98-107); Cholesterol 216 mg/dL (200); Creatinine, Serum 0.69 mg/dL (0.55-1.02); EST Glomerular Filtration Rate 98 mL/min (>60); Est Glom Filt Rate - Afr Amer 118 mL/min (>60); Globulin 4.5 g/dL (2.2-4.2); Glucose 87 mg/dL (74-106); High Density Lipoprotein 80 mg/dL; Potassium 3.4 mmol/L (3.5-5.1); Protein, Total 8.4 g/dL (6.4-8.2); Sodium Level 136 mmol/L (136-145); Triglycerides 67 mg/dL; Very Low Density Lipoprotein 13 mg/dL (5-40)
[2022-11-22 14:08] LABS: PROEL- Alpha-1 Globulin 0.2 g/dL (0.0-0.4); PROEL- Alpha-2 Globulin 0.8 g/dL (0.4-1.0); PROEL- Beta Globulin 1.2 g/dL (0.7-1.3); PROEL- Gamma Globulin 1.7 g/dL (0.4-1.8); PROEL- Globulin, Total 3.9 g/dL (2.2-3.9); PROEL- TOTAL PROTEIN 7.9 g/dL (6.0-8.5)
== END | disposition home or self-care (01) ==
LOC: MFPLAB 14:55
PROVIDERS: PCP Family Medicine; Referring Provider Family Medicine; Visit Provider Family Medicine
DX: I10 Essential (primary) hypertension (principal)
CPT/HCPCS: 36415; 80053; 80061; 84165; 84443; 85025

== ENCOUNTER → 2022-12-08 | Outpatient (CLI) | payer OTHER, SELFPAY ==
--- NOTE | 2022-12-08 08:05 | BI_ITS ---
MAMMOGRAPHY - BILATERAL SCREENING REASON FOR EXAM: Female, 46 years old. Routine annual screening examination. PERTINENT HISTORY: Aunt with breast cancer. TECHNIQUE: Digital bilateral breast joseph (3D mammographic acquisition) in the CC and MLO projections. 2-D mediolateral oblique (MLO) and craniocaudad (CC) views of both breasts were obtained. CAD: Full Field Digital Mammography with Computer Added Detection was performed. COMPARISON: Comparison is made with prior study dated 08/31/2021 and 07/11/2020. FINDINGS: Breast Composition: The breasts are extremely dense, which lowers the sensitivity of mammography. There is a 7.4 mm well-defined nodule in the slightly upper deep lateral aspect of the left breast. Correlation with ultrasound is recommended. No other significant abnormalities are identified. BI/SCRN MAMM (CAD)W/JOSEPH BILAT IMPRESSION: 7.4 mm well-defined nodule in the slightly upper deep lateral aspect of the left breast. Correlation with ultrasound is recommended. ASSESSMENT CATEGORY: BIRADS Category 0: Incomplete. Need additional imaging evaluation. A letter regarding these results will be sent to the patient by the facility within 30 days. Approximately 10% of breast cancers are not detected by mammography. A normal mammogram should not delay biopsy of a clinically suspicious abnormality. [id number] Electronically Signed: Mark Robbins MD at 9:35 EST ,
== END | disposition home or self-care (01) ==
PROVIDERS: PCP Family Medicine; Visit Provider Family Medicine
DX: Z12.31 Encounter for screening mammogram for malignant neoplasm of breast (principal); Z12.39 Encounter for other screening for malignant neoplasm of breast
CPT/HCPCS: 77063; 77067

== ENCOUNTER → 2022-12-10 | Outpatient (CLI) | payer OTHER, SELFPAY ==
--- NOTE | 2022-12-10 08:01 | US_ITS ---
STUDY: ULTRASOUND BREAST - LEFT REASON FOR EXAM: Female, 46 years old. Abnormal screening mammogram. TECHNIQUE: Axial and longitudinal images of the LEFT breast were performed with a high resolution ultrasound transducer. # OF IMAGES: 46 COMPARISON: Comparison is made with prior mammogram dated 12/08/2022. FINDINGS: LEFT Breast: The upper outer quadrant of the left breast was examined with ultrasound. Multiple small cysts are seen. The largest cyst measures 1.5 cm x 1.4 cm x 0.7 cm. This is at the 12 o''clock position of the breast at 5 cm from the nipple. US/Breast Limited Unilateral IMPRESSION: Multiple cysts are seen in the upper outer quadrant of the left breast. ASSESSMENT CATEGORY: BIRADS Category 2: Benign. A letter regarding these results will be sent to the patient by the facility within 30 days. Electronically Signed: Mark Robbins MD at 15:21 EST ,
== END | disposition home or self-care (01) ==
LOC: OPUS 07:56
PROVIDERS: PCP Family Medicine; Visit Provider Family Medicine
DX: R92.8 Other abnormal and inconclusive findings on diagnostic imaging of breast (principal); N60.02 Solitary cyst of left breast
CPT/HCPCS: 76642

== ENCOUNTER → 2023-06-23 | Outpatient (CLI) | payer BC, SELFPAY ==
[2023-06-23 18:25] LABS: Absolute Neutrophil Count 2.1 X10^3/uL (2.0-7.7); Basophil# 0.04 X10^3/uL; Basophil% 0.8 % (0-1); Eosinophil# 0.15 X10^3/uL; Eosinophils% 3.1 % (0-5); Hematocrit 40.2 % (37-47); Lymphocyte % 41.8 % (19-41); Mean Corp Hgb Conc 32.3 g/dL (32-36); Mean Corpuscular Hgb 30.4 pg (27.0-32.0); Mean Corpuscular Volume 93.9 fL (81-99); Mean Platelet Vol. 10.1 fl (6.2-12.0); Monocyte# 0.45 X10^3/uL; Monocyte% 9.4 % (0-10); NRBC Flagged by Analyzer 0 % (0-5); Neutrophil # 2.14 X10^3/uL (2.7-7.7); Neutrophil % 44.7 % (47-70); Platelet Count 294 K/mm3 (150-450); RBC Distribution Width CV 11.8 % (11.6-14.6); RBC Distribution Width SD 40.5 fl (35.1-43.9); Red Blood Count 4.28 M/mm3 (4.2-5.4); White Blood Count 4.8 K/mm3 (4.4-11.0)
[2023-06-23 18:47] LABS: ALB/GLOB Ratio 0.8 RATIO (0.9-2.4); AST(SGOT) 25 U/L (15-37); Alanine Aminotransfer ALT/SGPT 36 U/L (13-56); Albumin, Serum 3.6 g/dL (3.2-5.0); Alkaline Phosphatase 30 U/L (45-117); Anion Gap 7 (5-15); BUN 16 mg/dL (7-18); BUN/Creat Ratio 18.8 RATIO (10-20); Calcium,Total 8.8 mg/dL (8.5-10.1); Chloride 103 mmol/L (98-107); Cholesterol 241 mg/dL (200); Creatinine, Serum 0.85 mg/dL (0.55-1.02); EST Glomerular Filtration Rate 77 mL/min (>60); Est Glom Filt Rate - Afr Amer 93 mL/min (>60); Globulin 4.4 g/dL (2.2-4.2); Glucose 87 mg/dL (74-106); High Density Lipoprotein 86 mg/dL; Magnesium 2.2 mg/dL (1.6-2.6); Potassium 3.4 mmol/L (3.5-5.1); Sodium Level 135 mmol/L (136-145); Thyroid Stim Hormone (TSH) 0.71 uIU/mL (0.358-3.74); Triglycerides 42 mg/dL; Very Low Density Lipoprotein 8 mg/dL (5-40)
== END | disposition home or self-care (01) ==
LOC: MFPLAB 16:00
PROVIDERS: PCP Family Medicine; Visit Provider Family Medicine
DX: I10 Essential (primary) hypertension (principal); E87.6 Hypokalemia
CPT/HCPCS: 36415; 80053; 80061; 83735; 84443; 85025

== ENCOUNTER → 2023-08-31 | Outpatient (CLI) | payer BC, SELFPAY ==
[2023-09-05 18:07] LABS: HPV APTIMA, High Risk Negative (Negative)
[2023-09-05 18:25] LABS: HPV Reflexed? YES, CHARGE PATIENT
== END | disposition home or self-care (01) ==
LOC: LABSPEC 10:26
PROVIDERS: PCP Family Medicine; Referring Provider Nurse Practitioner Family; Visit Provider Nurse Practitioner Family
DX: Z12.4 Encounter for screening for malignant neoplasm of cervix (principal)
CPT/HCPCS: 87624; 88175; G0145

== ENCOUNTER → 2024-01-19 | Outpatient (CLI) | payer BC, SELFPAY ==
[2024-01-19 11:40] LABS: Bacteria 0 SEEN /hpf (None Seen); Mucous, Urine 0 SEEN /hpf (<or=2+); Red Blood Cells-Urine 0 SEEN /hpf (0-5); Squamous Epithelial Cells - UA 0 SEEN /hpf (5-10); White Blood Cells 0 SEEN /hpf (0-5)
[2024-01-19 15:31] LABS: Absolute Lymphocyte Count 1.48 X10^3/uL (0.83-4.51); Absolute Neutrophil Count 1.4 X10^3/uL (2.0-7.7); Basophil# 0.03 X10^3/uL; Basophil% 0.9 % (0-1); Eosinophil# 0.08 X10^3/uL; Eosinophils% 2.3 % (0-5); Hematocrit 40.5 % (37-47); Hemoglobin 13.6 g/dL (12.0-15.0); Lymphocyte # 1.48 X10^3/ul (0.83-4.51); Lymphocyte % 42.3 % (19-41); Mean Corp Hgb Conc 33.6 g/dL (32-36); Mean Corpuscular Hgb 30.9 pg (27.0-32.0); Mean Platelet Vol. 10.4 fl (6.2-12.0); Monocyte% 14.3 % (0-10); NRBC Flagged by Analyzer 0 % (0-5); Neutrophil % 39.9 % (47-70); Platelet Count 298 K/mm3 (150-450); RBC Distribution Width SD 40.4 fl (35.1-43.9); White Blood Count 3.5 K/mm3 (4.4-11.0)
[2024-01-19 15:46] LABS: Color, Urine Yellow (Yellow); Glucose, Dipstick Normal (Normal); Ketone-Dipstick Negative (Negative); Leukocyte Esterase-Dipstick Negative /ul (Negative); Nitrite-Dipstick Negative (Negative); Occult Blood-Urine Negative /ul (Negative); Protein-Dipstick Negative (Negative); Specific Gravity, Urine 1.015 (1.002-1.030); Urine Bilirubin Dipstick Negative (Negative); Urine Clarity Clear (Clear); Urine Urobilinogen Normal (Normal)
[2024-01-19 16:17] LABS: ALB/GLOB Ratio 0.9 RATIO (0.9-2.4); AST(SGOT) 22 U/L (15-37); Alanine Aminotransfer ALT/SGPT 26 U/L (13-56); Alkaline Phosphatase 31 U/L (45-117); Anion Gap 7 (5-15); BUN 19 mg/dL (7-18); Calcium,Total 9.3 mg/dL (8.5-10.1); Chloride 102 mmol/L (98-107); Cholesterol 256 mg/dL (200); Creatinine, Serum 0.86 mg/dL (0.55-1.02); EST Glomerular Filtration Rate 75 mL/min (>60); Est Glom Filt Rate - Afr Amer 91 mL/min (>60); Globulin 4.4 g/dL (2.2-4.2); Glucose 104 mg/dL (74-106); High Density Lipoprotein 94 mg/dL; Magnesium 2.2 mg/dL (1.6-2.6); Potassium 3.7 mmol/L (3.5-5.1); Protein, Total 8.4 g/dL (6.4-8.2); Sodium Level 135 mmol/L (136-145); Thyroid Stim Hormone (TSH) 0.88 uIU/mL (0.358-3.74); Triglycerides 35 mg/dL; Very Low Density Lipoprotein 7 mg/dL (5-40)
[2024-01-25 09:45] LABS: Hemoglobin A1c 5.2 % (3.8-5.6)
== END | disposition home or self-care (01) ==
LOC: MFPLAB 11:38
PROVIDERS: PCP Family Medicine; Visit Provider Family Medicine
DX: I10 Essential (primary) hypertension (principal)
CPT/HCPCS: 36415; 80053; 80061; 81001; 83036; 83735; 84443; 85025

== ENCOUNTER → 2024-04-02 | Outpatient (CLI) | payer BC, SELFPAY ==
[2024-04-02 17:32] LABS: Absolute Lymphocyte Count 1.83 X10^3/uL (0.83-4.51); Absolute Neutrophil Count 2.3 X10^3/uL (2.0-7.7); Basophil# 0.03 X10^3/uL; Basophil% 0.6 % (0-1); Eosinophil# 0.07 X10^3/uL; Eosinophils% 1.4 % (0-5); Hemoglobin 12.4 g/dL (12.0-15.0); Lymphocyte # 1.83 X10^3/ul (0.83-4.51); Lymphocyte % 37.7 % (19-41); Mean Corp Hgb Conc 33.5 g/dL (32-36); Mean Corpuscular Hgb 30.6 pg (27.0-32.0); Mean Corpuscular Volume 91.4 fL (81-99); Mean Platelet Vol. 10.1 fl (6.2-12.0); Monocyte# 0.66 X10^3/uL; Monocyte% 13.6 % (0-10); NRBC Flagged by Analyzer 0 % (0-5); Neutrophil # 2.27 X10^3/uL (2.7-7.7); Neutrophil % 46.7 % (47-70); Platelet Count 271 K/mm3 (150-450); RBC Distribution Width CV 11.9 % (11.6-14.6); RBC Distribution Width SD 39.9 fl (35.1-43.9); Red Blood Count 4.05 M/mm3 (4.2-5.4); White Blood Count 4.9 K/mm3 (4.4-11.0)
[2024-04-02 18:00] LABS: hCG Titer Quant., Serum < 1 mIU/mL (1-3)
[2024-04-02 18:20] LABS: Thyroid Stim Hormone (TSH) 1.38 uIU/mL (0.358-3.74)
== END | disposition home or self-care (01) ==
LOC: MFPLAB 15:56
PROVIDERS: PCP Family Medicine; Visit Provider Family Medicine
DX: N92.0 Excessive and frequent menstruation with regular cycle (principal)
CPT/HCPCS: 36415; 84443; 84702; 85025

== ENCOUNTER → 2024-06-01 | Outpatient (CLI) | payer BC, SELFPAY ==
[2024-06-01 08:26] LABS: Bacteria 0 SEEN /hpf (None Seen); Mucous, Urine 0 SEEN /hpf (<or=2+); Red Blood Cells-Urine 0 SEEN /hpf (0-5); White Blood Cells 0 SEEN /hpf (0-5)
[2024-06-01 10:05] LABS: Absolute Lymphocyte Count 1.46 X10^3/uL (0.83-4.51); Absolute Neutrophil Count 1.1 X10^3/uL (2.0-7.7); Basophil# 0.05 X10^3/uL; Basophil% 1.5 % (0-1); Eosinophil# 0.16 X10^3/uL; Eosinophils% 4.7 % (0-5); Hematocrit 39.2 % (37-47); Hemoglobin 13.1 g/dL (12.0-15.0); Lymphocyte # 1.46 X10^3/ul (0.83-4.51); Lymphocyte % 43.3 % (19-41); Mean Corp Hgb Conc 33.4 g/dL (32-36); Mean Corpuscular Hgb 29.9 pg (27.0-32.0); Mean Corpuscular Volume 89.5 fL (81-99); Monocyte# 0.55 X10^3/uL; Monocyte% 16.3 % (0-10); NRBC Flagged by Analyzer 0 % (0-5); Neutrophil # 1.14 X10^3/uL (2.7-7.7); Neutrophil % 33.9 % (47-70); Platelet Count 291 K/mm3 (150-450); RBC Distribution Width CV 11.7 % (11.6-14.6); RBC Distribution Width SD 38.1 fl (35.1-43.9); Red Blood Count 4.38 M/mm3 (4.2-5.4); White Blood Count 3.4 K/mm3 (4.4-11.0)
[2024-06-01 10:06] LABS: Color, Urine Yellow (Yellow); Glucose, Dipstick Normal (Normal); Ketone-Dipstick 15 mg/dl (Negative); Leukocyte Esterase-Dipstick Negative /ul (Negative); Nitrite-Dipstick Negative (Negative); Occult Blood-Urine Negative /ul (Negative); Protein-Dipstick Negative (Negative); Specific Gravity, Urine 1.015 (1.002-1.030); Urine Bilirubin Dipstick Negative (Negative); Urine Clarity Clear (Clear); Urine Urobilinogen Normal (Normal)
[2024-06-01 10:21] LABS: Squamous Epithelial Cells - UA 0-5 SEEN /hpf (5-10)
[2024-06-01 10:35] LABS: ALB/GLOB Ratio 0.8 RATIO (0.9-2.4); AST(SGOT) 21 U/L (15-37); Alanine Aminotransfer ALT/SGPT 21 U/L (13-56); Albumin, Serum 3.6 g/dL (3.2-5.0); Alkaline Phosphatase 31 U/L (45-117); Anion Gap 7 (5-15); BUN 14 mg/dL (7-18); BUN/Creat Ratio 17.7 RATIO (10-20); Calcium,Total 9.1 mg/dL (8.5-10.1); Chloride 103 mmol/L (98-107); Cholesterol 210 mg/dL (200); Creatinine, Serum 0.79 mg/dL (0.55-1.02); EST Glomerular Filtration Rate 83 mL/min (>60); Est Glom Filt Rate - Afr Amer 100 mL/min (>60); Globulin 4.3 g/dL (2.2-4.2); Glucose 101 mg/dL (74-106); High Density Lipoprotein 83 mg/dL; Potassium 3.7 mmol/L (3.5-5.1); Protein, Total 7.9 g/dL (6.4-8.2); Sodium Level 136 mmol/L (136-145); Thyroid Stim Hormone (TSH) 1.31 uIU/mL (0.358-3.74); Triglycerides 45 mg/dL; Very Low Density Lipoprotein 9 mg/dL (5-40)
== END | disposition home or self-care (01) ==
LOC: MFPLAB 08:24
PROVIDERS: PCP Family Medicine; Visit Provider Family Medicine
DX: I10 Essential (primary) hypertension (principal)
CPT/HCPCS: 36415; 80053; 80061; 81001; 83735; 84443; 85025

== ENCOUNTER → 2025-03-15 | Outpatient (CLI) | payer BC, SELFPAY ==
[2025-03-15 14:50] LABS: Bacteria 0 SEEN /hpf (None Seen); Mucous, Urine 0 SEEN /hpf (<or=2+); Red Blood Cells-Urine 0 SEEN /hpf (0-5); Squamous Epithelial Cells - UA 0 SEEN /hpf (5-10); White Blood Cells 0 SEEN /hpf (0-5)
[2025-03-15 18:06] LABS: Absolute Lymphocyte Count 1.73 X10^3/uL (0.83-4.51); Absolute Neutrophil Count 1.7 X10^3/uL (2.0-7.7); Basophil# 0.06 X10^3/uL; Basophil% 1.4 % (0-1); Eosinophils% 2.4 % (0-5); Hematocrit 38.8 % (37-47); Hemoglobin 13.1 g/dL (12.0-15.0); Lymphocyte # 1.73 X10^3/ul (0.83-4.51); Lymphocyte % 40.8 % (19-41); Mean Corp Hgb Conc 33.8 g/dL (32-36); Mean Corpuscular Hgb 30.8 pg (27.0-32.0); Mean Corpuscular Volume 91.3 fL (81-99); Mean Platelet Vol. 10.5 fl (6.2-12.0); Monocyte# 0.61 X10^3/uL; Monocyte% 14.4 % (0-10); NRBC Flagged by Analyzer 0 % (0-5); Neutrophil # 1.73 X10^3/uL (2.7-7.7); Neutrophil % 40.8 % (47-70); Platelet Count 278 K/mm3 (150-450); RBC Distribution Width CV 11.9 % (11.6-14.6); RBC Distribution Width SD 39.9 fl (35.1-43.9); Red Blood Count 4.25 M/mm3 (4.2-5.4); White Blood Count 4.2 K/mm3 (4.4-11.0)
[2025-03-15 18:30] LABS: Color, Urine Yellow (Yellow); Glucose, Dipstick Normal (Normal); Ketone-Dipstick 5 mg/dl (Negative); Leukocyte Esterase-Dipstick Negative /ul (Negative); Nitrite-Dipstick Negative (Negative); Occult Blood-Urine Negative /ul (Negative); Protein-Dipstick 15 mg/dl (Negative); Specific Gravity, Urine 1.015 (1.002-1.030); Urine Bilirubin Dipstick Negative (Negative); Urine Clarity Clear (Clear); Urine Urobilinogen Normal (Normal)
[2025-03-15 18:37] LABS: ALB/GLOB Ratio 1.3 RATIO (0.9-2.4); AST(SGOT) 23 U/L (<=31); Alanine Aminotransfer ALT/SGPT 17 U/L (<=34); Albumin, Serum 4.3 g/dL (3.5-5.0); Alkaline Phosphatase 31 U/L (35-104); Anion Gap 11 (5-15); BUN 17 mg/dL (4-19); BUN/Creat Ratio 23.7 RATIO (10-20); Calcium,Total 9.4 mg/dL (7.6-11.0); Carbon Dioxide 25.5 mmol/L (21.0-32.0); Chloride 101 mmol/L (98-108); Cholesterol 245 mg/dL (<=200); Creatinine, Serum 0.72 mg/dL (0.70-1.20); EST Glomerular Filtration Rate 104 (>60); Globulin 3.4 g/dL (2.2-4.2); Glucose 96 mg/dL (70-99); High Density Lipoprotein 74 mg/dL; Low Density Lipoprotein Calc. 160 mg/dL; Magnesium 1.9 mg/dL (1.5-2.2); Potassium 4.1 mmol/L (3.3-5.1); Protein, Total 7.8 g/dL (5.9-8.4); Sodium Level 138 mmol/L (133-145); Total Bilirubin 0.25 mg/dL (0.00-1.30); Triglycerides 52 mg/dL; Very Low Density Lipoprotein 10 mg/dL (5-40); cholesterol:hdl ratio screen 3.29
[2025-03-15 19:06] LABS: Thyroid Stim Hormone (TSH) 0.929 uIU/mL (0.300-4.200); Vitamin B12 2167 pg/mL (180-914); Vitamin D,25 Hydroxy 36.5 ng/mL (30-100)
== END | disposition home or self-care (01) ==
PROVIDERS: PCP Family Medicine; Referring Provider Family Medicine; Visit Provider Family Medicine
DX: I10 Essential (primary) hypertension (principal); R53.83 Other fatigue; E87.6 Hypokalemia
CPT/HCPCS: 36415; 80053; 80061; 81001; 82306; 82607; 83735; 84439; 84443; 85025

== ENCOUNTER → 2025-05-02 | Outpatient (CLI) | payer BC, SELFPAY ==
--- NOTE | 2025-05-02 07:57 | BI_ITS ---
EXAM: SCRN MAMM (CAD)W/JOSEPH BILAT DATE: 05/02/2025 CLINICAL HISTORY: F, Age 49 y/o , SCREENING Aunt with breast cancer. TECHNIQUE: SCRN MAMM (CAD)W/JOSEPH BILAT COMPARISON: Prior exam(s) dated prior study dated December 08, 2022.. FINDINGS: TISSUE DENSITY: The breasts are extremely dense, which lowers the sensitivity of mammography. Bilateral Breast Mammographic Findings: No significant masses, calcifications or other abnormalities are identified. No suspicious masses, areas of developing architectural distortion, or suspicious calcifications. There has been no significant interval change. BI/SCRN MAMM (CAD)W/JOSEPH BILAT IMPRESSION: Stable examination. OVERALL FINAL ASSESSMENT BI-RADS 1: NEGATIVE. RECOMMEND ANNUAL MAMMOGRAPHIC SCREENING. RECOMMENDATION: Routine annual follow-up in 1 Year A letter with findings and recommendations will be mailed to the patient. Reading Location: [place] [id number]
== END | disposition home or self-care (01) ==
PROVIDERS: PCP Family Medicine; Referring Provider Family Medicine; Visit Provider Family Medicine
DX: Z12.31 Encounter for screening mammogram for malignant neoplasm of breast (principal); Z80.3 Family history of malignant neoplasm of breast
CPT/HCPCS: 77063; 77067

== ENCOUNTER 2025-05-30 06:28 | Day surgery (SDC) | payer BC, SELFPAY ==
[2025-05-30] VITALS (13 sets, daily range): BP systolic 99–138; BP diastolic 67–101; PULSE 82–104; RESP 16; TEMP 36.2–36.8; O2SAT 90–100; BMI 29.7
--- OUTSIDE RECORDS SUMMARY | 2025-05-30 06:33 | XMS RPT_ITS | CCD ---
Author Organization [facility] CliniSyal Care Team Providers Care Lan Administrator Name Role Phone Dr. Adeola Guevara Primary Care Provider Dr. Adeola Guevara Referring Provider LUPE Murray Attending Provider Ismael RUBIN, Dr. Adeola Cline Primary Care Provider [phone] Dr. Adeola Guevara MD Attending Provider Ismael RUBIN, Dr. Adeola Cline Referring Provider ISMEAL RUBIN, ADEOLA Primary Care Physician ADEOLA GUEVARA MD Attending Unavailable ADEOLA GUEVARA MD Primary Care Unavailable Dr. Mary Jo Smith MD Attending Provider Adeola Guevara Referring Unavailable Adeola Guevara Primary Care Unavailable Adeola Guevara Attending Unavailable Adeola Guevara Referring Unavailable Adeola Guevara Primary Care Unavailable Adeola Guevara Attending Unavailable Adeola Guevara Attending Unavailable Adeola Guevara Primary Care Unavailable Adeola Guevara Referring Unavailable Adeola Guevara Primary Care Unavailable Mary Jo Smith Attending Unavailable Adeola Guevara Primary Care Unavailable Mary Jo Smith Attending Unavailable Mary Jo Smith Referring Unavailable Medications Current Medications Medication Drug Class(es) Dates Sig (Normalized) Sig (Original) amLODIPine 10 mg oral tablet (11 sources) Dihydropyridine Calcium Channel Anthony Start: 12-07-19 take 1 tablet by mouth once daily Amlodipine 10 mg tablet Active 10 mg PO DAILY 7 0 December 07, 2019 1:00am hydroCHLOROthiazide 25 mg oral tablet (11 sources) Thiazide Diuretic Start: 12-12-19 20 take 1 tablet by mouth once daily Hydrochlorothiazide 25 MG tablet Active 25 mg PO DAILY December 12, 2019 1:00am Multivitamin preparation (8 sources) Start: 12-07-19 take 1 tablet by mouth once daily multivitamin Active 1 TABLET PO DAILY December 07, 2019 4:18pm Start: 12-07-2019 take 1 tablet by fabby th once daily multivitamin Active 1 TABLET PO DAILY December 07, 2019 12:00am Start: 12-07-2019 take 1 tablet by fabby th once daily multivitamin Active 1 TABLET PO DAILY December 07, 2019 1:00am Multivitamin tablet,chewable (3 sources) Start: 12-07-2019 Multivitamin tablet,chewable Active 1 {tbl} PO DAILY December 07, 2019 1:00am sertraline 50 mg oral tablet (1 source) Serotonin Reuptake Inhibitor Start: 05-17-2025 take 1 tablet by mouth once daily Sertraline 50 mg tablet Active 50 mg PO daily May 17, 2025 12:00am Completed/Discontinued Medications Medication Drug Class(es) Dates Sig (Normalized) Sig (Original) acetaminophen 325 mg / HYDROcodone bitartrate 5 mg oral tablet (11 sources) Opioid Agonist Start: 12-18-2019 End: 12-20-2019 Hydrocodone-Acetamino phen 1 TABLET tablet Discontinued 1 {tbl} PO EVERY 6 HOURS NEEDED as needed for Pain 6 2 0 December 18, 2019 December 19, 2019 1:00am December 20, 2019 1:08am Postoperative pain Other acute postprocedural pain Start: 12-18-2019 End: 12-20-2019 take 1 tablet by mouth every six hours as needed Hydrocodone-Acetaminophen Discontinued 1 TABLET PO EVERY 6 HOURS NEEDED 6 2 December 18, 2019 December 20, 2019 1:08am metoprolol tartrate 25 mg oral tablet (11 sources) beta-Adrenergic Anthony Start: 12-12-2019 End: 12-26-2020 take 1 tablet by mouth once daily Metoprolol Tartrate 25 MG tablet Discontinued 25 mg PO DAILY December 12, 2019 1:00am December 26, 2020 9:12am microencapsulated potassium chloride 20 meq extended release oral tablet (11 sources) Start: 11-26-2019 End: 12-07-2019 take 1 tablet by mouth once daily Potassium Chloride 20 MEQ tablet Discontinued 20 meq PO DAILY 5 0 November 26, 2019 1:00am December 07, 2019 4:18pm Problems Problem Classification Problem Date Documented Da te Episodic/Chronic Anxiety disorders (1 source) Anxiety; Translations: [Anxiety disorder, unspecified] 05-17-2025 Chronic Biliary tract disease (20 sources) Calculus of gallbladder with cholecystitis; Translations: [Calculus of gallbladder with chronic cholecystitis without obstruction] 12-07-2019 Episodic Essential hypertension (12 sources) Hypertensive disorder; Translations: [Essential (primary) hypertension] Onset: 03-21-2025 12-07-2019 Chronic Fluid and electrolyte disorders (20 sources) Hypokalemia; Translations: [Hypokalemia] 12-07-2019 Episodic Other gastrointestinal disorders (1 source) Groin mass; Translations: [Other intra-abdominal and pelvic swelling, mass and lump] 05-17-2025 Episodic Other screening for suspected conditions (not mental disorders or infectious disease) (1 source) Encounter for screening mammogram for malignant neoplasm of breast; Translations: [Encounter for screening mammogram for malignant neoplasm of breast] Onset: 05-09-2025 Episodic Residual codes; unclassified (11 sources) History of right salpingo-oophorecto my; Translations: [Acquired absence of other genital organ(s)] 12-31-2019 Episodic Results Test Name Value Interpretation Reference Range Facility Surgery Visit Reporton 05-17 Surgery Visit Report [facility] [address] [place] [address]. [address] [place] [address] OFFICE VISIT Date of Service: 05/17/25 MR#: [id number] Acct: [id number] Name: EUGENIE HENRY Rep #: [id number] : 1975 Provider: Dr. Mary Jo cox MD Age/Sex: 49/F Location: [facility] Status: Signed Intake Vital Signs 08/08/21 08:34 05/17/25 09:13 05/17/25 09:21 Height 5 ft 5 in 5 ft 5 in Weight: 186 lb BMI 30.9 BP 143/100 H 127/88 H Blood Pressure Location Rt brachial Lt brachial Position Sitting Sitting Respiration 18 Intake Visit Reasons: INGUINAL HERNIA Chief Complaint: right inguinal hernia Ceo Required: No Is patient in pain?: Yes (intermittent right groin) Allergies No Known Allergies Allergy (Verified 05/17/25 09:13) Medications ???Medication ???Instructions ???Recorded ???Confirmed ???Type amlodipine 10 mg tablet 10 mg PO DAILY #7 tabs 12/07/19 Rx multivitamin 1 tab PO DAILY 12/07/19 05/17/25 H istory hydrochlorothiazide 25 mg tablet 25 mg PO DAILY 12/12/19 05/17/25 H istory sertraline 50 mg tablet 50 mg PO QDAY 05/17/25 05/17/25 Hi story Have you fallen in the past year?: No [facility] Medical History (Updated 05/18/25 @ 11:[address] 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 Patient states that she has had this for about a year or so. Patient is able to reduce. Patient had an ultrasound which did show a fat- containing right inguinal hernia. Patient previously had Vansil incision and had fallopian tube and ovary removed in the past. Patient also had laparoscopic cholecystectomy. Patient has been having discomfort with the right groin no hernia is interested in repair. ROS General General: No weight change, appetite, fatigue, colon cancer or breast cancer HEENT HEENT: No difficulty swallowing, eye injury, eye surgery, swollen glands or hoarseness Endo Endocrine: No thyroid disease, diabetes mellitus, thyroid cancer, Hair loss, heat intolerance or cold intolerance Skin Skin: No rash or changing moles Musc Musculoskeletal: No back problems, arthritis, rheumatoid arthritis, gout or joint pain Cardio Cardiovascular: Yes high blood pressure; No murmur, pacemaker, heart disease, atrial fibrillation, heart attack, heart stent, palpitations, shortness of breath with exertion or chest pain Psych Psychiatric: Yes anxiety; No depression or hearing voices Resp Respiratory: No shortness of breath, No sleep apnea, No cough, No COPD, No asthma, No emphysema and No wheezing Gastro Gastrointestinal: No abdominal pain, No nausea or vomiting, No diarrhea, No constipation, No blood in stool, No acid reflux, No hemorrhoids, No ulcers, Yes gallbladder problem and No black,tarry stools Elian Hematologic: No blood thinners, No blood disorders, No bleeding, No anemia and No blood clots Neuro Neurologic: No numbness and No tingling Exam Const General: cooperative, healthy appearing, comfortable and no acute distress HENMT Head: normocephalic and atraumatic Neck Neck: supple Resp Effort Inspection: normal respiratory effort Cardio Rate: regular rate GI Inspection: non-distended and scar (Well-healed Pfannenstiel incision) Palpation: soft, hernia (Right inguinal hernia, reducible) and nontender Skin General: no rashes or lesions noted Neuro General: CN's II-XI intact bilaterally Extrem General: normal to inspection Psych Mental Status: mental status grossly normal Attitude: cooperative Assessment and Plan Assessment and Plan (1) Right inguinal hernia: Status: Acute Plan Plan to do a robotic right inguinal hernia repair with mesh possible bilateral. Reviewed the procedure with the patient including the risks, including but not limited to infection, bleeding, paresthesia, chronic pain, injury to small bowel, and recurrence. Also discussed plan to divide the round ligament during the repair in (more content not included)... Normal [facility] US GROIN RIGHTon 05-06-2025 US GROIN RIGHT ORIGINAL EXAMINATION: Right groin ultrasound TECHNIQUE: This report is based on interpretation of permanently recorded ultrasound images. COMPARISON: None. HISTORY: ORDERING SYSTEM PROVIDED HISTORY: Reason for Exam: INGUINAL HERNIA FINDINGS: Ultrasound of the right groin was performed supine and standing with and without Valsalva. Ultrasound findings reveal a 5 x 1.7 x 2.9 cm fat containing inguinal hernia that is only seen with the patient upright. The hernia spontaneously reduces when supine, even with Valsalva. The hernia neck measures approximately 1.4 cm. IMPRESSION: 5 cm fat containing right inguinal hernia as described above which spontaneously reduces while supine. I have personally reviewed the images of this examination and agree with the resident's findings and interpretation. Interpreted by: Mendy Malloy MD Preliminary Report By: Bertrand Terry Electronically signed By Mendy Malloy MD Dictated Date: 05/06/2025 2:45:54 PM Prelim Date: 05/06/2025 2:58:59 PM Sign Date: 05/06/2025 2:58:59 PM Ordering Provider: ADEOLA GUEVARA [facility] Breast imaging reportOrdered By: Mark Robbins on 05-02-2025 Study report [facility] Imaging Services [address] [place], [place] [id number] SCRN MAMM (CAD)W/JOSEPH BILAT MR#: [id number] Acct: [id number] Name: EUGENIE HENRY Rep #: [id number] : 1975 F 49 From: Fadi Robbins MD PCP: Dr. Adeola Guevara MD Status: [facility] Study:SCRN MAMM (CAD)W/JOSEPH BILAT Date of Exa m: 05/02/25 Exam# [id number] Ordering Dr: Adeola Guevara MD EXAM: SCRN MAMM (CAD)W/JOSEPH BILAT DATE: 05/02/2025 CLINICAL HISTORY: F, Age 49 y/o , SCREENING Aunt with breast cancer. TECHNIQUE: SCRN MAMM (CAD)W/JOSEPH BILAT COMPARISON: Prior exam(s) dated prior study dated December 08, 2022.. FINDINGS: TISSUE DENSITY: The breasts are extremely dense, which lowers the sensitivity ofmammography. Bilateral Breast Mammographic Findings: No significant masses, calcifications or other abnormalities are identified. No suspicious masses, areas of developing architectural distortion, or suspicious calcifications. There has been no significant interval change. BI/SCRN MAMM (CAD)W/JOSEPH BILAT IMPRESSION: Stable examination. OVERALL FINAL ASSESSMENT BI-RADS 1: NEGATIVE. RECOMMEND ANNUAL MAMMOGRAPHIC SCREENING. RECOMMENDATION: Routine annual follow-up in 1 Year A letter with findings and recommendations will be mailed to the patient. Reading Location: [facility] CC: Dr. Adeola Guevara MD ~ Honey Producer: Signed [facility] SCRN MAMM (CAD)W/JOSEPH BILATo n 05-02-2025 SCRN MAMM (CAD)W/JOSEPH BILAT [facility] Imaging Services [address] [place], [place] [address] SCRN MAMM (CAD)W/JOSEPH BILAT MR#: [id number] Acct: [id number] Name: EUGENIE HENRY Rep #: [id number] : 1975 F 49 From: Mark nur MD PCP: Dr. Adeola Guevara MD Status: [facility] Study: SCRN MAMM (CAD)W/JOSEPH BILAT Date of Exam: 04/23 Exam# [id number] Ordering Dr: Adeola Guevara MD EXAM: SCRN MAMM (CAD)W/JOSEPH BILAT DATE: 05/02/2025 CLINICAL HISTORY: F, Age 49 y/o , SCREENING Aunt with breast cancer. TECHNIQUE: SCRN MAMM (CAD)W/JOSEPH BILAT COMPARISON: Prior exam(s) dated prior study dated December 08, 2022.. FINDINGS: TISSUE DENSITY: The breasts are extremely dense, which lowers the sensitivity of mammography. Bilateral Breast Mammographic Findings: No significant masses, calcifications or other abnormalities are identified. No suspicious masses, areas of developing architectural distortion, or suspicious calcifications. There has been no significant interval change. BI/SCRN MAMM (CAD)W/JOSEPH BILAT IMPRESSION: Stable examination. OVERALL FINAL ASSESSMENT BI-RADS 1: NEGATIVE. RECOMMEND ANNUAL MAMMOGRAPHIC SCREENING. RECOMMENDATION: Routine annual follow-up in 1 Year A letter with findings and recommendations will be mailed to the patient. Reading Location: [facility] CC: Dr. Adeola Guevara MD Honey Producer: Signed Normal [facility] Absolute lymphocyte countOrd ered By: Adeola Guevara on 03-15-2025 Lymphocytes Auto (Unsp spec) [#/Vol] 1.73 10*3/uL 0.83-4.51 [facility] Absolute neutrophil countOrd ered By: Adeola Guevara on 03-15-2025 Neutrophils (Bld) [#/Vol] 1.7 10*3/uL Low 2.0-7.7 [facility] Anion gap in Serum or Plasma Ordered By: Adeola Guevara on 03-15-2025 Anion gap [Moles/Vol] 11 mmol/L 5- [facility] Automated lymphocyte count a s percentage of total leukocytesOrdered By: Adeola Guevara on 03-15-2025 Lymphocytes/100 WBC Auto (Unsp spec) 40.8 % - [facility] BUN/creatinine ratioOrdered By: Adeola Guevara on 03-15-2025 Urea nitrogen/Creatinine [Mass ratio] 23.7 mg/mg High 10-20 [facility] Basophil percentageOrdered B y: Adeola Guevara on 03-15-2025 Basophils/100 WBC (Bld) 1.4 % High 0-1 [facility] Bilirubin Test strip Ql (U)O rdered By: Adeola Guevara on 03-15-2025 Bilirubin Ql (U) Negative Negative [facility] Bilirubin, totalOrdered By: Adeola Guevara on 03-15-2025 Bilirubin [Mass/Vol] 0.25 mg/dL 0.00-1.30 [facility] CBC W/Diff, Automatedon 02-22 Absolute Lymph 1.73 X10 3/uL Normal 0.83-4.51 [facility] Comment on above: Order Comment: Order Date: 03/15/25 Order Info: 0184-1 - CBCD Performed By: #### L 100.0100, L500.4050, L501.5200, L500.4100 #### [facility] [address] [place], [address] Absolute Neut 1.7 X10 3/uL Low 2.0-7.7 [facility] Comment on above: Order Comment: Order Date: 03/15/25 Order Info: 0184-1 - CBCD Performed By: #### L 100.0100, L500.4050, L501.5200, L500.4100 #### [facility] [address] [place], [address] Basophils/100 WBC (Bld) 1.4 % High 0-1 [facility] Comment on above: Order Comment: Order Date: 03/15/25 Order Info: 018-1 - CBCD Performed By: #### L 100.0100, L500.4050, L501.5200, L500.4100 #### [facility] [address] [place], [address] Eosinophils/100 WBC (Bld) 2.4 % Normal 0-5 [facility] Comment on above: Order Comment: Order Date: 03/15/25 Order Info: 018- - CBCD Performed By: #### L 100.0100, L500.4050, L501.5200, L500.4100 #### [facility] [address] [place], [address] Erythrocyte distribution width (RBC) [Ratio] 11.9 % Normal 11.6-14.6 [facility] Comment on above: Order Comment: Order Date: 03/15/25 Order Info: 018- - CBCD Performed By: #### L 100.0100, L500.4050, L501.5200, L500.4100 #### [facility] [address] [place], [address] Hematocrit (Bld) [Volume fraction] 38.8 % Normal 37-47 [facility] Comment on above: Order Comment: Order Date: 03/15/25 Order Info: 018-1 - CBCD Performed By: #### L 100.0100, L500.4050, L501.5200, L500.4100 #### [facility] [address] [place], [address] Hemoglobin (Bld) [Mass/Vol] 13.1 g/dL Normal 12.0-15.0 [facility] Comment on above: Order Comment: Order Date: 03/15/25 Order Info: 0184-1 - CBCD Performed By: #### L 100.0100, L500.4050, L501.5200, L500.4100 #### [facility] [address] [place], [address] IG% 0.200 Normal 0.0-0.9 [facility] Comment on above: Order Comment: Order Date: 03/15/25 Order Info: 0184- - CBCD Result Comment: IG% - Immature Granulocytes (promyelocytes, myelocytes and metamyelocytes) > 1% indicates that a LEFT SHIFT is Present. Performed By: #### L 100.0100, L500.4050, L501.5200, L500.4100 #### [facility] [address] [place], [address] Lymphocytes/100 WBC (Bld) 40.8 % Normal 19-41 [facility] Comment on above: Order Comment: Order Date: 03/15/25 Order Info: 0184- - CBCD Performed By: #### L 100.0100, L500.4050, L501.5200, L500.4100 #### [facility] [address] [place], [address] MCH (RBC) [Entitic mass] 30.8 pg Normal 27.0-32.0 [facility] Comment on above: Order Comment: Order Date: 03/15/25 Order Info: 0184- - CBCD Performed By: #### L 100.0100, L500.4050, L501.5200, L500.4100 #### [facility] [address] [place], [address] MCHC (RBC) [Mass/Vol] 33.8 g/dL Normal 32-36 [facility] Comment on above: Order Comment: Order Date: 03/15/25 Order Info: 0184- - CBCD Performed By: #### L 100.0100, L500.4050, L501.5200, L500.4100 #### [facility] [address] [place], [address] MCV (RBC) [Entitic vol] 91.3 fL Normal 81-99 [facility] Comment on above: Order Comment: Order Date: 03/15/25 Order Info: 0184-1 - CBCD Performed By: #### L 100.0100, L500.4050, L501.5200, L500.4100 #### [facility] [address] [place], [address] Monocytes/100 WBC (Bld) 14.4 % High 0-10 [facility] Comment on above: Order Comment: Order Date: 03/15/25 Order Info: 018- - CBCD Performed By: #### L 100.0100, L500.4050, L501.5200, L500.4100 #### [facility] [address] [place], [address] Neutrophils/100 WBC (Bld) 40.8 % Low 47-70 [facility] Comment on above: Order Comment: Order Date: 03/15/25 Order Info: 018- - CBCD Performed By: #### L 100.0100, L500.4050, L501.5200, L500.4100 #### [facility] [address] [place], [address] Nucleated RBC (Bld) [#/Vol] 0 10*3/uL Normal 0-5 [facility] Comment on above: Order Comment: Order Date: 03/15/25 Order Info: 0184-1 - CBCD Performed By: #### L 100.0100, L500.4050, L501.5200, L500.4100 #### [facility] [address] [place], [address] Platelet mean volume (Bld) [Entitic vol] 10.5 fL Normal 6.2-12.0 [facility] Comment on above: Order Comment: Order Date: 03/15/25 Order Info: 0184-1 - CBCD Performed By: #### L 100.0100, L500.4050, L501.5200, L500.4100 #### [facility] [address] [place], [address] Platelets (Bld) [#/Vol] 278 10*3/uL Normal 150-450 [facility] Comment on above: Order Comment: Order Date: 03/15/25 Order Info: 0184-1 - CBCD Performed By: #### L 100.0100, L500.4050, L501.5200, L500.4100 #### [facility] [address] [place], [address] RBC (Bld) [#/Vol] 4.25 10*6/uL Normal 4.2-5.4 [facility] Comment on above: Order Comment: Order Date: 03/15/25 Order Info: 0184-1 - CBCD Performed By: #### L 100.0100, L500.4050, L501.5200, L500.4100 #### [facility] [address] [place], [address] RDW SD 39.9 fl Normal 35.1-43.9 [facility] Comment on above: Order Comment: Order Date: 03/15/25 Order Info: 0184-1 - CBCD Performed By: #### L 100.0100, L500.4050, L501.5200, L500.4100 #### [facility] [address] [place], [address] WBC (Bld) [#/Vol] 4.2 10*3/uL Low 4.4-11.0 [facility] Comment on above: Order Comment: Order Date: 03/15/25 Order Info: 0184-1 - CBCD Performed By: #### L 100.0100, L500.4050, L501.5200, L500.4100 #### [facility] [address] [place], [address] Calculated very low density lipoprotein (VLDL) cholesterol measurementOrdered By: Adeola Guevara on 03-15-2025 Calculated very low density lipoprotein (VLDL) cholesterol measurement 10 mg/dL 5-40 [facility] Carbon dioxide, total [Moles /volume] in Central venous bloodOrdered By: Adeola Guevara on 03-15-2025 CO2 [Moles/Vol] 25.5 mmol/L 21.0-32.0 [facility] Chloride assayOrdered By: Marisol Guevara on 03-15-2025 Chloride [Moles/Vol] 101 mmol/L 98-108 [facility] Comprehensive Metabolic Prof ilon 03-15-2025 Albumin [Mass/Vol] 4.3 g/dL Normal 3.5-5.0 [facility] Comment on above: Order Comment: Order Date: 03/15/25 Order Info: [id number] - CMP Order Info: [id number] - LIPID Order Info: [id number] - MG Order Info: [id number] - TSH Order Info: [id number] - T4F Performed By: #### L 100.0100, L500.4050, L501.5200, L500.4100 #### [facility] [address] [place], [address] Albumin/Globulin [Mass ratio] 1.3 {ratio} Normal 0.9-2.4 [facility] Comment on above: Order Comment: Order Date: 03/15/25 Order Info: [id number] - CMP Order Info: [id number] - LIPID Order Info: [id number] - MG Order Info: [id number] - TSH Order Info: [id number] - T4F Performed By: #### L 100.0100, L500.4050, L501.5200, L500.4100 #### [facility] [address] [place], [address] ALK PHOS 31 U/L Low 35-104 [facility] Comment on above: Order Comment: Order Date: 03/15/25 Order Info: [id number] - CMP Order Info: [id number] - LIPID Order Info: [id number] - MG Order Info: [id number] - TSH Order Info: [id number] - T4F Performed By: #### L 100.0100, L500.4050, L501.5200, L500.4100 #### [facility] [address] [place], [address] ALT [Catalytic activity/Vol] 17 U/L Normal <=34 [facility] Comment on above: Order Comment: Order Date: 03/15/25 Order Info: 86-1 - CMP Order Info: [id number] - LIPID Order Info: [id number] - MG Order Info: [id number] - TSH Order Info: [id number] - T4F Performed By: #### L 100.0100, L500.4050, L501.5200, L500.4100 #### [facility] [address] [place], [address] AST [Catalytic activity/Vol] 23 U/L Normal <=31 [facility] Comment on above: Order Comment: Order Date: 03/15/25 Order Info: [id number] - CMP Order Info: [id number] - LIPID Order Info: [id number] - MG Order Info: [id number] - TSH Order Info: [id number] - T4F Performed By: #### L 100.0100, L500.4050, L501.5200, L500.4100 #### [facility] [address] [place], [address] Bilirubin [Mass/Vol] 0.25 mg/dL Normal 0.00-1.30 [facility] Comment on above: Order Comment: Order Date: 03/15/25 Order Info: 0786-1 - CMP Order Info: [id number] - LIPID Order Info: [id number] - MG Order Info: [id number] - TSH Order Info: 3024-7 - T4F Performed By: #### L 100.0100, L500.4050, L501.5200, L500.4100 #### [facility] [address] [place], [address] BUN/CRE 23.7 RATIO High 10-20 [facility] Comment on above: Order Comment: Order Date: 03/15/25 Order Info: [id number] - CMP Order Info: [id number] - LIPID Order Info: [id number] - MG Order Info: [id number] - TSH Order Info: 3024-7 - T4F Performed By: #### L 100.0100, L500.4050, L501.5200, L500.4100 #### [facility] [address] [place], [address] Calcium [Mass/Vol] 9.4 mg/dL Normal 7.6-11.0 [facility] Comment on above: Order Comment: Order Date: 03/15/25 Order Info: [id number] - CMP Order Info: [id number] - LIPID Order Info: [id number] - MG Order Info: 3016-3 - TSH Order Info: 3024-7 - T4F Performed By: #### L 100.0100, L500.4050, L501.5200, L500.4100 #### [facility] [address] [place], [address] Chloride [Moles/Vol] 101 mmol/L Normal 98-108 [facility] Comment on above: Order Comment: Order Date: 03/15/25 Order Info: 0786-1 - CMP Order Info: [id number] - LIPID Order Info: [id number] - MG Order Info: [id number] - TSH Order Info: 3024-7 - T4F Performed By: #### L 100.0100, L500.4050, L501.5200, L500.4100 #### [facility] [address] [place], [address] CO2 [Moles/Vol] 25.5 mmol/L Normal 21.0-32.0 [facility] Comment on above: Order Comment: Order Date: 03/15/25 Order Info: 0786-1 - CMP Order Info: [id number] - LIPID Order Info: [id number] - MG Order Info: 3016-3 - TSH Order Info: 3024-7 - T4F Performed By: #### L 100.0100, L500.4050, L501.5200, L500.4100 #### [facility] [address] [place], [address] Creatinine [Mass/Vol] 0.72 mg/dL Normal 0.70-1.20 [facility] Comment on above: Order Comment: Order Date: 03/15/25 Order Info: 86-1 - CMP Order Info: [id number] - LIPID Order Info: [id number] - MG Order Info: 3016-3 - TSH Order Info: 302-7 - T4F Performed By: #### L 100.0100, L500.4050, L501.5200, L500.4100 #### [facility] [address] [place], [address] GAP 11 Normal 5-15 [facility] Comment on above: Order Comment: Order Date: 03/15/25 Order Info: 0786-1 - CMP Order Info: [id number] - LIPID Order Info: [id number] - MG Order Info: 3013 - TSH Order Info: 3027 - T4F Performed By: #### L 100.0100, L500.4050, L501.5200, L500.4100 #### [facility] [address] [place], [place], [address] GFR/1.73 sq M.predicted among non-blacks MDRD (S/P/Bld) [Vol rate/Area] 104 mL/min/{1.73_m2} Normal >60 [facility] Comment on above: Order Comment: Order Date: 03/15/25 Order Info: 0786-1 - CMP Order Info: [id number] - LIPID Order Info: [id number] - MG Order Info: 3016-3 - TSH Order Info: 3024-7 - T4F Result Comment: mL/m in/1.73m2 CKD-EPI Creatinine Equation (2020) Performed By: #### L 100.0100, L500.4050, L501.5200, L500.4100 #### [facility] [address] [place], [address] Globulin (S) [Mass/Vol] 3.4 g/dL Normal 2.2-4.2 [facility] Comment on above: Order Comment: Order Date: 03/15/25 Order Info: 86-1 - CMP Order Info: [id number] - LIPID Order Info: [id number] - MG Order Info: 3015-3 - TSH Order Info: 302-7 - T4F Performed By: #### L 100.0100, L500.4050, L501.5200, L500.4100 #### [facility] [address] [place], [address] Glucose [Mass/Vol] 96 mg/dL Normal 70-99 [facility] Comment on above: Order Comment: Order Date: 03/15/25 Order Info: 86-1 - CMP Order Info: [id number] - LIPID Order Info: [id number] - MG Order Info: 3016-3 - TSH Order Info: 3024-7 - T4F Performed By: #### L 100.0100, L500.4050, L501.5200, L500.4100 #### [facility] [address] [place], [address] Potassium [Moles/Vol] 4.1 mmol/L Normal 3.3-5.1 [facility] Comment on above: Order Comment: Order Date: 03/15/25 Order Info: 0786-1 - CMP Order Info: [id number] - LIPID Order Info: [id number] - MG Order Info: 3016-3 - TSH Order Info: 3024-7 - T4F Performed By: #### L 100.0100, L500.4050, L501.5200, L500.4100 #### [facility] [address] [place], [address] Sodium [Moles/Vol] 138 mmol/L Normal 133-145 [facility] Comment on above: Order Comment: Order Date: 03/15/25 Order Info: 0786-1 - CMP Order Info: [id number] - LIPID Order Info: [id number] - MG Order Info: 3016-3 - TSH Order Info: 3024-7 - T4F Performed By: #### L 100.0100, L500.4050, L501.5200, L500.4100 #### [facility] [address] [place], [address] T PROT 7.8 g/dL Normal 5.9-8.4 [facility] Comment on above: Order Comment: Order Date: 03/15/25 Order Info: 0786-1 - CMP Order Info: [id number] - LIPID Order Info: [id number] - MG Order Info: 3016-3 - TSH Order Info: 3024-7 - T4F Performed By: #### L 100.0100, L500.4050, L501.5200, L500.4100 #### [facility] [address] [place], [address] Urea nitrogen [Mass/Vol] 17 mg/dL Normal 4-19 [facility] Comment on above: Order Comment: Order Date: 03/15/25 Order Info: 0786-1 - CMP Order Info: [id number] - LIPID Order Info: [id number] - MG Order Info: 3016-3 - TSH Order Info: 3024-7 - T4F Performed By: #### L 100.0100, L500.4050, L501.5200, L500.4100 #### [facility] [address] [place], [address] Eosinophil percentageOrdered By: Adeola Guevara on 03-15-2025 Eosinophils/100 WBC (Bld) 2.4 % 0-5 [facility] Erythrocyte distribution wid th ratioOrdered By: Adeola Guevara on 03-15-2025 Erythrocyte distribution width (RBC) [Ratio] 11.9 % 11.6-14.6 [facility] Erythrocyte distribution wid th standard deviationOrdered By: Adeola Guevara on 03-15-2025 Erythrocyte distribution width (RBC) [Ratio] 39.9 fl 35.1-43.9 [facility] Glomerular filtration rate ( GFR) estimation/1.73 sq m using serum, plasma, or whole bOrdered By: Adeola Guevara on 03-15-2025 GFR/1.73 sq M.predicted among non-blacks MDRD (S/P/Bld) [Vol rate/Area] 104 mL/min/{1.73_m2} >60 [facility] Comment on above: mL/min/1.73m2 CKD-EP I Creatinine Equation (2020) Hematocrit Auto (Bld) [Volum e fraction]Ordered By: Adeola Guevara on 03-15-2025 Hematocrit (Bld) [Volume fraction] 38.8 % 37-47 [facility] Hemoglobin measurementOrdere d By: Adeola Guevara on 03-15-2025 Hemoglobin (Bld) [Mass/Vol] 13.1 g/dL 12.0-15.0 [facility] Immature granulocytes/100 WB C Auto (Bld)Ordered By: Adeola Guevara on 03-15-2025 Immature granulocytes/100 WBC (Bld) 0.200 % 0.0-0.9 [facility] Comment on above: IG% - Immature Granu locytes (promyelocytes, myelocytes and metamyelocytes) > 1% indicates that a LEFT SHIFT is Present. Ketones Test strip Ql (U)Ord ered By: Adeola Guevara on 03-15-2025 Ketones Ql (U) 5 mg/dl High Negative [facility] LDL calc ser/plasOrdered By: Adeola Guevara on 03-15-2025 Cholesterol in LDL [Mass/Vol] 160 mg/dL [facility] Comment on above: Zacwdowpak=873-524 m g/dL & Higher Ztfo=064 mg/dL or greater Laboratory - Chemistry and C hemistry - challengeOrdered By: Adeola Guevara on 03-15-2025 AST [Catalytic activity/Vol] 23 U/L <32 [facility] Lipid Profileon 03-15-2025 CHOL:HDL 3.29 Normal [facility] Comment on above: Order Comment: Order Date: 03/15/25 Order Info: 0786-1 - CMP Order Info: [id number] - LIPID Order Info: [id number] - MG Order Info: 3 - TSH Order Info: 3024-04 T4F Performed By: #### L 100.0100, L500.4050, L501.5200, L500.4100 #### [facility] [address] [place], [address] Cholesterol [Mass/Vol] 245 mg/dL High <=200 [facility] Comment on above: Order Comment: Order Date: 03/15/25 Order Info: 785-10 - CMP Order Info: [id number] - LIPID Order Info: [id number] - MG Order Info: 3 - TSH Order Info: 3024-04 T4F Result Comment: Chol esterol level, Desirable <200 mg/dL Borderline high cholesterol 200-239 mg/dL High cholesterol >=240 mg/dL Recommendations of the NCEP Adult Treatment Panel for the following risk-cutoff thresholds for the [place] population. Performed By: #### L 100.0100, L500.4050, L501.5200, L500.4100 #### [facility] [address] [place], [address] Cholesterol in HDL [Mass/Vol] 74 mg/dL Normal [facility] Comment on above: Order Comment: Order Date: 03/15/25 Order Info: 07 - CMP Order Info: [id number] - LIPID Order Info: [id number] - MG Order Info: 3 - TSH Order Info: 3024-04 - T4F Result Comment: Debbi onal Cholesterol Education Program (NCEP) guidelines: <40 mg/dL: Low HDL-cholesterol (major risk factor for CHD) >= 60 mg/dL: High HDL-cholesterol (negative risk factor for CHD) HDL-cholesterol is affected by a number of factors, e.g. smoking, exercise, hormones, sex and age. Performed By: #### L 100.0100, L500.4050, L501.5200, L500.4100 #### [facility] [address] [place], [address] Cholesterol in LDL [Mass/Vol] 160 mg/dL Normal [facility] Comment on above: Order Comment: Order Date: 03/15/25 Order Info: 0786-1 - CMP Order Info: [id number] - LIPID Order Info: [id number] - MG Order Info: 301-3 - TSH Order Info: 3027 - T4F Result Comment: Bord xttmmx=701-192 mg/dL Higher Hbdt=107 mg/dL or greater Performed By: #### L 100.0100, L500.4050, L501.5200, L500.4100 #### [facility] [address] [place], [address] Cholesterol in VLDL [Mass/Vol] 10 mg/dL Normal 5-40 [facility] Comment on above: Order Comment: Order Date: 03/15/25 Order Info: 785-1 - CMP Order Info: [id number] - LIPID Order Info: [id number] - MG Order Info: 3 - TSH Order Info: 7 - T4F Performed By: #### L 100.0100, L500.4050, L501.5200, L500.4100 #### [facility] [address] [place], [address] Triglyceride [Mass/Vol] 52 mg/dL Normal [facility] Comment on above: Order Comment: Order Date: 03/15/25 Order Info: 86-1 - CMP Order Info: [id number] - LIPID Order Info: [id number] - MG Order Info: [id number] - TSH Order Info: 3024-7 - T4F Result Comment: The drugs N-Acetylcysteine and Metamizole may falsely depress this assay. Normal range: <150 mg/dL Borderline High: 150-199 mg/dL High: 200-499 mg/dL Very High: >500 mg/dL Performed By: #### L 100.0100, L500.4050, L501.5200, L500.4100 #### [facility] [address] [place], [place], [address] MCV (mean corpuscular volume ) determinationOrdered By: Adeola Guevara on 03-15-2025 MCV (RBC) [Entitic vol] 91.3 fL 81-99 [facility] Magnesiumon 03-15-2025 Magnesium [Mass/Vol] 1.9 mg/dL Normal 1.5-2.2 [facility] Comment on above: Order Comment: Order Date: 03/15/25 Order Info: 0786-1 - CMP Order Info: [id number] - LIPID Order Info: [id number] - MG Order Info: 3016-3 - TSH Order Info: 3024-7 - T4F Performed By: #### L 100.0100, L500.4050, L501.5200, L500.4100 #### [facility] [address] [place], [place], [address] Magnesium measurement (mass/ volume)Ordered By: Adeola Guevara on 03-15-2025 Magnesium (Unsp spec) [Mass/Vol] 1.9 mg/dL 1.5-2.2 [facility] Mean corpuscular hemoglobin (MCH) determinationOrdered By: Adeola Guevara on 03-15-2025 MCH (RBC) [Entitic mass] 30.8 pg 27.0-32.0 [facility] Mean corpuscular hemoglobin concentration (MCHC) determinationOrdered By: Adeola Guevara on 03-15-2025 MCHC (RBC) [Mass/Vol] 33.8 g/dL 32-36 [facility] Mean platelet volume determi nationOrdered By: Adeola Guevara on 03-15-2025 Platelet mean volume (Bld) [Entitic vol] 10.5 fL 6.2-12.0 [facility] Microscopic analysis of urin e for red blood cells (RBC)Ordered By: Adeola Guevara on 03-15-2025 Microscopic analysis of urine for red blood cells (RBC) 0 SEEN /hpf 0-5 [facility] Monocyte percentageOrdered B y: Adeola Guevara on 03-15-2025 Monocytes/100 WBC (Bld) 14.4 % High 0-10 [facility] Mucus LM Ql (Urine sed)Order ed By: Adeola Guevara on 03-15-2025 Mucus Ql (Urine sed) 0 SEEN /hpf [facility] Neutrophil percentageOrdered By: Adeola Guevara on 03-15-2025 Neutrophils/100 WBC (Bld) 40.8 % Low 47-70 [facility] Nitrite Test strip Ql (U)Ord ered By: Adeola Guevara on 03-15-2025 Nitrite Ql (U) Negative Negative [facility] Nucleated red blood cell per centageOrdered By: Adeola Guevara on 03-15-2025 Nucleated RBC/100 WBC (Bld) [Ratio] 0 % 0-5 [facility] Platelet countOrdered By: Marisol Guevara on 03-15-2025 Platelets (Bld) [#/Vol] 278 10*3/uL 150-450 [facility] Potassium measurement (mass/ volume)Ordered By: Adeola Guevara on 03-15-2025 Potassium (Unsp spec) [Mass/Vol] 4.1 mmol/L 3.3-5.1 [facility] Protein Test strip Ql (U)Ord ered By: Adeola Guevara on 03-15-2025 Protein Ql (U) 15 mg/dl High Negative [facility] RBC Auto (Bld) [#/Vol]Ordere d By: Adeola Guevara on 03-15-2025 RBC (Bld) [#/Vol] 4.25 10*6/uL 4.2-5.4 [facility] Screening total cholesterol/ high density lipoprotein (HDL) cholesterol ratioOrdered By: Adeola Guevara on 03-15-2025 Cholesterol.total/Choleste rol in HDL [Mass ratio] 3.29 {ratio} [facility] Serum creatinine measurement (mass/volume)Ordered By: Adeola Guevara on 03-15-2025 Creatinine [Mass/Vol] 0.72 mg/dL 0.70-1.20 [facility] Serum globulin measurementOr dered By: Adeola Guevara on 03-15-2025 Globulin (S) [Mass/Vol] 3.4 g/dL 2.2-4.2 [facility] Serum glucose measurement (m ass/volume)Ordered By: Adeola Guevara on 03-15-2025 Glucose [Mass/Vol] 96 mg/dL 70-99 [facility] Serum or plasma alanine york otransferase (ALT) measurementOrdered By: Adeola Guevara on 03-15-2025 ALT [Catalytic activity/Vol] 17 U/L <35 [facility] Serum or plasma albumin valdez urement (mass/volume)Ordered By: Adeola Guevara on 03-15-2025 Albumin [Mass/Vol] 4.3 g/dL 3.5-5.0 [facility] Serum or plasma albumin/glob ulin mass ratioOrdered By: Adeola Guevara on 03-15-2025 Albumin/Globulin [Mass ratio] 1.3 {ratio} 0.9-2.4 [facility] Serum or plasma alkaline franco sphatase measurementOrdered By: Adeola Guevara on 03-15-2025 ALP [Catalytic activity/Vol] 31 U/L Low 35-104 [facility] Serum or plasma calcium valdez urement (mass/volume)Ordered By: Adeola Guevara on 03-15-2025 Calcium [Mass/Vol] 9.4 mg/dL 7.6-11.0 [facility] Serum or plasma cholesterol in HDL measurement (mass/volume)Ordered By: Adeola Guevara on 03-15-2025 Cholesterol in HDL [Mass/Vol] 74 mg/dL >40 [facility] Comment on above: National Cholesterol Education Program (NCEP) guidelines:<40 mg/dL: Low HDL-cholesterol (major risk factor for CHD)>= 60 mg/dL: High HDL-cholesterol (negative risk factor for CHD)HDL-cholesterol is affected by a number of factors, e.g. smoking, exercise, hormones, sex and age. Serum or plasma cholesterol measurement (mass/volume)Ordered By: Adeola Guevara on 03-15-2025 Cholesterol [Mass/Vol] 245 mg/dL High <201 [facility] Comment on above: Cholesterol level, D esirable <200 mg/dLBorderline high cholesterol 200-239 mg/dLHigh cholesterol >=240 mg/dLRecommendations of the NCEP Adult Treatment Panel for the following risk-cutoff thresholds for the [place] population. Serum or plasma urea nitroge n measurement (mass/volume)Ordered By: Adeola Guevara on 03-15-2025 Urea nitrogen [Mass/Vol] 17 mg/dL 4-19 [facility] Sodium levelOrdered By: Adeola Guevara on 03-15-2025 Sodium [Moles/Vol] 138 mmol/L 133-145 [facility] Squamous epithelial cells de tection in urine sediment by light microscopyOrdered By: Adeola Guevara on 03-15-2025 Epithelial cells.squamous LM Ql (Urine sed) 0 SEEN /hpf 5-10 [facility] T4 Free Directon 03-15-2025 T4 FREE DIRECT 1.30 ng/dL Normal 0.76-1.46 [facility] Comment on above: Order Comment: Order Date: 05/24/24 Order Info: 0786-1 - CMP Order Info: [id number] - LIPID Order Info: [id number] - MG Order Info: 301-3 - TSH Performed By: #### L 501.9520, L500.4050, L500.4100, L100.0100, L501.5200 #### [facility] [address] [place], [place], [id number] T4 freeOrdered By: Adeola marinelli on 03-15-2025 Free T4 [Mass/Vol] 1.30 ng/dL 0.76-1.46 [facility] TSH DL <= 0.005 mIU/L QnOrde red By: Adeola Guevara on 03-15-2025 TSH Qn 0.929 uIU/mL 0.300-4.200 [facility] Thyroid Stim Hormone (TSH)on 03-15-2025 TSH 0.929 uIU/mL Normal 0.300-4.200 [facility] Comment on above: Order Comment: Order Date: 05/24/24 Order Info: 0786-1 - CMP Order Info: [id number] - LIPID Order Info: [id number] - MG Order Info: 3016-3 - TSH Performed By: #### L 501.9520, L500.4050, L500.4100, L100.0100, L501.5200 #### [facility] [address] [place], [address] Total proteinOrdered By: Nickolas Guevara on 03-15-2025 Protein [Mass/Vol] 7.8 g/dL 5.9-8.4 [facility] Triglycerides measurementOrd ered By: Adeola Guevara on 03-15-2025 Triglyceride [Mass/Vol] 52 mg/dL <199 [facility] Comment on above: The drugs N-Acetylcy steine and Metamizole may falsely depress this assay. Normal range: <150 mg/dLBorderline High: 150-199 mg/dLHigh: 200-499 mg/dLVery High: >500 mg/dL Urinalysis, Completeon 03-15 BACTERIA 0 SEEN Normal None Seen [facility] Comment on above: Order Comment: Order Date: 05/24/24 Order Info: 0786-1 - CMP Order Info: [id number] - LIPID Order Info: [id number] - MG Order Info: 3016-3 - TSH Performed By: #### L 501.9520, L500.4050, L500.4100, L100.0100, L501.5200 #### [facility] [address] [place], [address] EPI,SQUAMOUS 0 SEEN Normal 5-10 [facility] Comment on above: Order Comment: Order Date: 05/24/24 Order Info: 0786-1 - CMP Order Info: [id number] - LIPID Order Info: [id number] - MG Order Info: 3016-3 - TSH Performed By: #### L 501.9520, L500.4050, L500.4100, L100.0100, L501.5200 #### [facility] [address] [place], [address] Mucus Ql (Urine sed) 0 SEEN Normal [facility] Comment on above: Order Comment: Order Date: 05/24/24 Order Info: 0786-1 - CMP Order Info: [id number] - LIPID Order Info: [id number] - MG Order Info: 3016-3 - TSH Performed By: #### L 501.9520, L500.4050, L500.4100, L100.0100, L501.5200 #### [facility] [address] [facility], [address] RBC 0 SEEN Normal 0-5 [facility] Comment on above: Order Comment: Order Date: 05/24/24 Order Info: 0786-1 - CMP Order Info: [id number] - LIPID Order Info: [id number] - MG Order Info: 3015-12 - TSH Performed By: #### L 501.9520, L500.4050, L500.4100, L100.0100, L501.5200 #### [facility] [address] [facility], [address] WBC 0 SEEN Normal 0-5 [facility] Comment on above: Order Comment: Order Date: 05/24/24 Order Info: 0786-1 - CMP Order Info: [id number] - LIPID Order Info: [id number] - MG Order Info: 3015-12 - TSH Performed By: #### L 501.9520, L500.4050, L500.4100, L100.0100, L501.5200 #### [facility] [place], [place], [address] Urine clarityOrdered By: Nickolas Guevara on 03-15-2025 Clarity (U) Clear Clear [facility] Urine color determinationOrd ered By: Adeola Guevara on 03-15-2025 Color (U) Yellow Yellow [facility] Urine glucose detectionOrder ed By: Adeola Guevara on 03-15-2025 Glucose Ql (U) Normal mg/dl Normal [facility] Urine leukocyte esterase det ection by dipstickOrdered By: Adeola Guevara on 03-15-2025 Leukocyte esterase Test strip Ql (U) Negative Negative [facility] Urine pHOrdered By: Adeola wisdom on 03-15-2025 pH (U) 6.0 [pH] 5.0 - 8.0 [facility] Urine sediment bacteria coun t by microscopy (number/high power field)Ordered By: Adeola Guevara on 03-15-2025 Bacteria LM.HPF (Urine sed) [#/Area] 0 /[HPF] None Seen [facility] Urine specific gravity measu rementOrdered By: Adeola Guevara on 03-15-2025 Specific gravity (U) [Rel density] 1.015 1.002-1.030 [facility] Urine urobilinogen measureme ntOrdered By: Adeola Guevara on 03-15-2025 Urobilinogen Ql (U) Normal mg/dl Normal [facility] Vitamin B12on 03-15-2025 Cobalamin (Vitamin B12) [Mass/Vol] 2167 pg/mL High 180-914 [facility] Comment on above: Order Comment: Order Date: 05/24/24 Order Info: 0786-1 - CMP Order Info: [id number] - LIPID Order Info: [id number] - MG Order Info: 3016-3 - TSH Performed By: #### L 501.9520, L500.4050, L500.4100, L100.0100, L501.5200 #### [facility] [address] [place] [address], [address] Vitamin B12 ser/plasOrdered By: Adeola Guevara on 03-15-2025 Cobalamin (Vitamin B12) [Mass/Vol] 2167 pg/mL High 180-914 [facility] Vitamin D,25 Hydroxyon 03-15 Vitamin D 25-OH 36.5 ng/mL Normal 30-100 [facility] Comment on above: Order Comment: Order Date: 05/24/24 Order Info: [id number] - CMP Order Info: [id number] - LIPID Order Info: [id number] - MG Order Info: 3016-3 - TSH Result Comment: Caprice min D Status Deficiency: <20 ng/mL (50nmol/L) Insufficiency: 20-30 ng/mL (50-75 nmol/L) Sufficiency: 30-100 ng/mL (75-250 nmol/L) Toxicity: >100 ng/mL (>250 nmol/L) Performed By: #### L 501.9520, L500.4050, L500.4100, L100.0100, L501.5200 #### [facility] [address] [place], [address] White blood cell (WBC) count Ordered By: Adeola Guevara on 03-15-2025 WBC (Bld) [#/Vol] 4.2 10*3/uL Low 4.4-11.0 [facility] White blood cell countOrdere d By: Adeola Guevara on 03-15-2025 White blood cell count 0 SEEN /hpf 0-5 [facility] CBC W/Diff, Automatedon 08-0 Absolute Lymph 1.46 X10 3/uL Normal 0.83-4.51 [facility] Comment on above: Order Comment: Order Date: 05/24/24 Order Info: [id number] - CBCD Performed By: #### L 501.9520, L500.4050, L500.4100, L100.0100, L501.5200 #### [facility] [address] [place], [address] Absolute Neut 1.1 X10 3/uL Low 2.0-7.7 [facility] Comment on above: Order Comment: Order Date: 05/24/24 Order Info: [id number] - CBCD Performed By: #### L 501.9520, L500.4050, L500.4100, L100.0100, L501.5200 #### [facility] [address] [place], [address] Basophils/100 WBC (Bld) 1.5 % High 0-1 [facility] Comment on above: Order Comment: Order Date: 05/24/24 Order Info: [id number] - CBCD Performed By: #### L 501.9520, L500.4050, L500.4100, L100.0100, L501.5200 #### [facility] [address] [place], [address] Eosinophils/100 WBC (Bld) 4.7 % Normal 0-5 [facility] Comment on above: Order Comment: Order Date: 05/24/24 Order Info: 0184-1 - CBCD Performed By: #### L 501.9520, L500.4050, L500.4100, L100.0100, L501.5200 #### [facility] [address] [place], [address] Erythrocyte distribution width (RBC) [Ratio] 11.7 % Normal 11.6-14.6 [facility] Comment on above: Order Comment: Order Date: 05/24/24 Order Info: 0184-1 - CBCD Performed By: #### L 501.9520, L500.4050, L500.4100, L100.0100, L501.5200 #### [facility] [address] [place], [address] Hematocrit (Bld) [Volume fraction] 39.2 % Normal 37-47 [facility] Comment on above: Order Comment: Order Date: 05/24/24 Order Info: 0184- - CBCD Performed By: #### L 501.9520, L500.4050, L500.4100, L100.0100, L501.5200 #### [facility] [address] [place], [address] Hemoglobin (Bld) [Mass/Vol] 13.1 g/dL Normal 12.0-15.0 [facility] Comment on above: Order Comment: Order Date: 05/24/24 Order Info: 0184-1 - CBCD Performed By: #### L 501.9520, L500.4050, L500.4100, L100.0100, L501.5200 #### [facility] [address] [place], [address] IG% 0.300 Normal 0.0-0.9 [facility] Comment on above: Order Comment: Order Date: 05/24/24 Order Info: 0184-1 - CBCD Result Comment: IG% - Immature Granulocytes (promyelocytes, myelocytes and metamyelocytes) > 1% indicates that a LEFT SHIFT is Present. Performed By: #### L 501.9520, L500.4050, L500.4100, L100.0100, L501.5200 #### [facility] [address] [place], [address] Lymphocytes/100 WBC (Bld) 43.3 % High 19-41 [facility] Comment on above: Order Comment: Order Date: 05/24/24 Order Info: 0184-1 - CBCD Performed By: #### L 501.9520, L500.4050, L500.4100, L100.0100, L501.5200 #### [facility] [address] [place], [address] MCH (RBC) [Entitic mass] 29.9 pg Normal 27.0-32.0 [facility] Comment on above: Order Comment: Order Date: 05/24/24 Order Info: 0184-1 - CBCD Performed By: #### L 501.9520, L500.4050, L500.4100, L100.0100, L501.5200 #### [facility] [address] [place], [address] MCHC (RBC) [Mass/Vol] 33.4 g/dL Normal 32-36 [facility] Comment on above: Order Comment: Order Date: 05/24/24 Order Info: 0184- - CBCD Performed By: #### L 501.9520, L500.4050, L500.4100, L100.0100, L501.5200 #### [facility] [address] [place], [address] MCV (RBC) [Entitic vol] 89.5 fL Normal 81-99 [facility] Comment on above: Order Comment: Order Date: 05/24/24 Order Info: 0184-1 - CBCD Performed By: #### L 501.9520, L500.4050, L500.4100, L100.0100, L501.5200 #### [facility] [address] [place], [address] Monocytes/100 WBC (Bld) 16.3 % High 0-10 [facility] Comment on above: Order Comment: Order Date: 05/24/24 Order Info: 0184-1 - CBCD Performed By: #### L 501.9520, L500.4050, L500.4100, L100.0100, L501.5200 #### [facility] [address] [place], [address] Neutrophils/100 WBC (Bld) 33.9 % Low 47-70 [facility] Comment on above: Order Comment: Order Date: 05/24/24 Order Info: 0184- - CBCD Performed By: #### L 501.9520, L500.4050, L500.4100, L100.0100, L501.5200 #### [facility] [address] [place], [address] Nucleated RBC (Bld) [#/Vol] 0 10*3/uL Normal 0-5 [facility] Comment on above: Order Comment: Order Date: 05/24/24 Order Info: 0184- - CBCD Performed By: #### L 501.9520, L500.4050, L500.4100, L100.0100, L501.5200 #### [facility] [address] [place], [address] Platelet mean volume (Bld) [Entitic vol] 10.0 fL Normal 6.2-12.0 [facility] Comment on above: Order Comment: Order Date: 05/24/24 Order Info: 0184-1 - CBCD Performed By: #### L 501.9520, L500.4050, L500.4100, L100.0100, L501.5200 #### [facility] [address] [place], [address] Platelets (Bld) [#/Vol] 291 10*3/uL Normal 150-450 [facility] Comment on above: Order Comment: Order Date: 05/24/24 Order Info: 0184-1 - CBCD Performed By: #### L 501.9520, L500.4050, L500.4100, L100.0100, L501.5200 #### [facility] [address] [place], [address] RBC (Bld) [#/Vol] 4.38 10*6/uL Normal 4.2-5.4 [facility] Comment on above: Order Comment: Order Date: 05/24/24 Order Info: 0184-1 - CBCD Performed By: #### L 501.9520, L500.4050, L500.4100, L100.0100, L501.5200 #### [facility] [address] [place], [address] RDW SD 38.1 fl Normal 35.1-43.9 [facility] Comment on above: Order Comment: Order Date: 05/24/24 Order Info: 0184- - CBCD Performed By: #### L 501.9520, L500.4050, L500.4100, L100.0100, L501.5200 #### [facility] [address] [place], [address] WBC (Bld) [#/Vol] 3.4 10*3/uL Low 4.4-11.0 [facility] Comment on above: Order Comment: Order Date: 05/24/24 Order Info: 0184-1 - CBCD Performed By: #### L 501.9520, L500.4050, L500.4100, L100.0100, L501.5200 #### [facility] [address] [place], [address] Comprehensive Metabolic Prof [facility] 06-01-2024 Albumin [Mass/Vol] 3.6 g/dL Normal 3.2-5.0 [facility] Comment on above: Order Comment: Order Date: 05/24/24 Order Info: 0786-1 - CMP Order Info: [id number] - LIPID Order Info: [id number] - MG Order Info: 301-3 - TSH Performed By: #### L 501.9520, L500.4050, L500.4100, L100.0100, L501.5200 #### [facility] [address] [place], [address] Albumin/Globulin [Mass ratio] 0.8 {ratio} Low 0.9-2.4 [facility] Comment on above: Order Comment: Order Date: 05/24/24 Order Info: 86-1 - CMP Order Info: [id number] - LIPID Order Info: [id number] - MG Order Info: 3 - TSH Performed By: #### L 501.9520, L500.4050, L500.4100, L100.0100, L501.5200 #### [facility] [address] [place], [address] ALK P 31 U/L Low 45-117 [facility] Comment on above: Order Comment: Order Date: 05/24/24 Order Info: 86-1 - CMP Order Info: [id number] - LIPID Order Info: [id number] - MG Order Info: 3 - TSH Performed By: #### L 501.9520, L500.4050, L500.4100, L100.0100, L501.5200 #### [facility] [address] [place], [address] ALT [Catalytic activity/Vol] 21 U/L Normal 13-56 [facility] Comment on above: Order Comment: Order Date: 05/24/24 Order Info: 0786-1 - CMP Order Info: [id number] - LIPID Order Info: [id number] - MG Order Info: 3 - TSH Performed By: #### L 501.9520, L500.4050, L500.4100, L100.0100, L501.5200 #### [facility] [address] [place], [address] AST [Catalytic activity/Vol] 21 U/L Normal 15-37 [facility] Comment on above: Order Comment: Order Date: 05/24/24 Order Info: 0786-1 - CMP Order Info: [id number] - LIPID Order Info: [id number] - MG Order Info: 3016-3 - TSH Performed By: #### L 501.9520, L500.4050, L500.4100, L100.0100, L501.5200 #### [facility] [address] [place], [address] Bilirubin [Mass/Vol] 0.60 mg/dL Normal 0.20-1.00 [facility] Comment on above: Order Comment: Order Date: 05/24/24 Order Info: 86-1 - CMP Order Info: [id number] - LIPID Order Info: [id number] - MG Order Info: 301-3 - TSH Result Comment: For patients on eltrombopag therapy, use of Dimension [place] TBIL is not recommended. Performed By: #### L 501.9520, L500.4050, L500.4100, L100.0100, L501.5200 #### [facility] [address] [place], [address] BUN/CRE 17.7 RATIO Normal 10-20 [facility] Comment on above: Order Comment: Order Date: 05/24/24 Order Info: 0786-1 - CMP Order Info: [id number] - LIPID Order Info: [id number] - MG Order Info: 3016-3 - TSH Performed By: #### L 501.9520, L500.4050, L500.4100, L100.0100, L501.5200 #### [facility] [address] [place], [address] CA,Total 9.1 mg/dL Normal 8.5-10.1 [facility] Comment on above: Order Comment: Order Date: 05/24/24 Order Info: 0786-1 - CMP Order Info: [id number] - LIPID Order Info: [id number] - MG Order Info: 3015-3 - TSH Performed By: #### L 501.9520, L500.4050, L500.4100, L100.0100, L501.5200 #### [facility] [address] [place], [address] Chloride [Moles/Vol] 103 mmol/L Normal 98-107 [facility] Comment on above: Order Comment: Order Date: 05/24/24 Order Info: 86-1 - CMP Order Info: [id number] - LIPID Order Info: [id number] - MG Order Info: 3015-3 - TSH Performed By: #### L 501.9520, L500.4050, L500.4100, L100.0100, L501.5200 #### [facility] [address] [place], [address] CO2 [Moles/Vol] 26.0 mmol/L Normal 21.0-32.0 [facility] Comment on above: Order Comment: Order Date: 05/24/24 Order Info: 86-1 - CMP Order Info: [id number] - LIPID Order Info: [id number] - MG Order Info: 3015-3 - TSH Performed By: #### L 501.9520, L500.4050, L500.4100, L100.0100, L501.5200 #### [facility] [address] [place], [address] Creatinine [Mass/Vol] 0.79 mg/dL Normal 0.55-1.02 [facility] Comment on above: Order Comment: Order Date: 05/24/24 Order Info: 0786-1 - CMP Order Info: [id number] - LIPID Order Info: [id number] - MG Order Info: 3016-3 - TSH Result Comment: The validity of the calculated GFR GFRAA in patients over 70 years has not been determined. Clinical correlation is essential. Performed By: #### L 501.9520, L500.4050, L500.4100, L100.0100, L501.5200 #### [facility] [address] [place], [address] EST GFR - AA 100 mL/min Normal >60 [facility] Comment on above: Order Comment: Order Date: 05/24/24 Order Info: 0786-1 - CMP Order Info: [id number] - LIPID Order Info: [id number] - MG Order Info: 3016-3 - TSH Result Comment: Afri can [place]ovan GFR Calc Performed By: #### L 501.9520, L500.4050, L500.4100, L100.0100, L501.5200 #### [facility] [address] [place], [place], [id number] GAP 7 Normal 5-15 [facility] Comment on above: Order Comment: Order Date: 05/24/24 Order Info: 07-1 - CMP Order Info: [id number] - LIPID Order Info: [id number] - MG Order Info: 3016-3 - TSH Performed By: #### L 501.9520, L500.4050, L500.4100, L100.0100, L501.5200 #### [facility] [address] [facility] [place], [place], [address] GFR/1.73 sq M.predicted among non-blacks MDRD (S/P/Bld) [Vol rate/Area] 83 mL/min/{1.73_m2} Normal >60 [facility] Comment on above: Order Comment: Order Date: 05/24/24 Order Info: 0786-1 - CMP Order Info: [id number] - LIPID Order Info: [id number] - MG Order Info: 3016-3 - TSH Result Comment: Non- GFR Calc Performed By: #### L 501.9520, L500.4050, L500.4100, L100.0100, L501.5200 #### [facility] [address] [place], [address] Globulin (S) [Mass/Vol] 4.3 g/dL High 2.2-4.2 [facility] Comment on above: Order Comment: Order Date: 05/24/24 Order Info: 0786-1 - CMP Order Info: [id number] - LIPID Order Info: [id number] - MG Order Info: 3015-3 - TSH Performed By: #### L 501.9520, L500.4050, L500.4100, L100.0100, L501.5200 #### [facility] [address] [place], [address] Glucose [Mass/Vol] 101 mg/dL Normal 74-106 [facility] Comment on above: Order Comment: Order Date: 05/24/24 Order Info: 0786-1 - CMP Order Info: [id number] - LIPID Order Info: [id number] - MG Order Info: 3015-3 - TSH Result Comment: Fast ing Glucose result from 100 to 125 mg/dL suggests IMPAIRED HOMEOSTASIS per A.D.A. criteria. Performed By: #### L 501.9520, L500.4050, L500.4100, L100.0100, L501.5200 #### [facility] [address] [place], [address] Potassium [Moles/Vol] 3.7 mmol/L Normal 3.5-5.1 [facility] Comment on above: Order Comment: Order Date: 05/24/24 Order Info: 0786-1 - CMP Order Info: [id number] - LIPID Order Info: [id number] - MG Order Info: 3015-3 - TSH Performed By: #### L 501.9520, L500.4050, L500.4100, L100.0100, L501.5200 #### [facility] [address] [place], [address] Sodium [Moles/Vol] 136 mmol/L Normal 136-145 [facility] Comment on above: Order Comment: Order Date: 05/24/24 Order Info: 0786-1 - CMP Order Info: [id number] - LIPID Order Info: [id number] - MG Order Info: 3016-3 - TSH Performed By: #### L 501.9520, L500.4050, L500.4100, L100.0100, L501.5200 #### [facility] [address] [place], [address] T PROT 7.9 g/dL Normal 6.4-8.2 [facility] Comment on above: Order Comment: Order Date: 05/24/24 Order Info: 785- - CMP Order Info: [id number] - LIPID Order Info: [id number] - MG Order Info: 3015-3 - TSH Performed By: #### L 501.9520, L500.4050, L500.4100, L100.0100, L501.5200 #### [facility] [address] [place], [address] Urea nitrogen [Mass/Vol] 14 mg/dL Normal 7-18 [facility] Comment on above: Order Comment: Order Date: 05/24/24 Order Info: 07 - CMP Order Info: [id number] - LIPID Order Info: [id number] - MG Order Info: 6-3 - TSH Performed By: #### L 501.9520, L500.4050, L500.4100, L100.0100, L501.5200 #### [facility] [address] [place], [address] Lipid Profileon 06-01-2024 Cholesterol [Mass/Vol] 210 mg/dL High 200 [facility] Comment on above: Order Comment: Order Date: 05/24/24 Order Info: 0786-1 - CMP Order Info: [id number] - LIPID Order Info: [id number] - MG Order Info: 3016-3 - TSH Result Comment: <200 mg/dL Desirable 200-240 mg/dL Borderline >240 mg/dL High Risk Performed By: #### L 501.9520, L500.4050, L500.4100, L100.0100, L501.5200 #### [facility] [address] [place], [address] Cholesterol in HDL [Mass/Vol] 83 mg/dL Normal [facility] Comment on above: Order Comment: Order Date: 05/24/24 Order Info: 0786-1 - CMP Order Info: - LIPID Order Info: [id number] - MG Order Info: 3015-3 - TSH Result Comment: The drugs N-Acetylcysteine and Metamizole may falsely depress this assay. Reference Range HDL <40 mg/dL Low HDL Cholesterol HDL >or= 60 mg/dL High HDL Cholesterol Performed By: #### L 501.9520, L500.4050, L500.4100, L100.0100, L501.5200 #### [facility] [address] [place], [address] Cholesterol in LDL [Mass/Vol] 118 mg/dL Normal 0-130 [facility] Comment on above: Order Comment: Order Date: 05/24/24 Order Info: 785-10 - CMP Order Info: - LIPID Order Info: [id number] - MG Order Info: 3015-3 - TSH Performed By: #### L 501.9520, L500.4050, L500.4100, L100.0100, L501.5200 #### [facility] [address] [place], [address] Cholesterol in VLDL [Mass/Vol] 9 mg/dL Normal 5-40 [facility] Comment on above: Order Comment: Order Date: 05/24/24 Order Info: 07 - CMP Order Info: - LIPID Order Info: [id number] - MG Order Info: 3015-3 - TSH Performed By: #### L 501.9520, L500.4050, L500.4100, L100.0100, L501.5200 #### [facility] [address] [place], [address] Triglyceride [Mass/Vol] 45 mg/dL Normal [facility] Comment on above: Order Comment: Order Date: 05/24/24 Order Info: 0786-1 - CMP Order Info: [id number] - LIPID Order Info: [id number] - MG Order Info: 3016-3 - TSH Result Comment: The drugs N-Acetylcysteine and Metamizole may falsely depress this assay. Serum Triglycerides Reference Interval Normal <150 mg/dL Borderline high 150 - 199 mg/dL High 200 - 499 mg/dL Very High > or = 500 mg/dL Performed By: #### L 501.9520, L500.4050, L500.4100, L100.0100, L501.5200 #### [facility] [address] [place], [address] Magnesiumon 06-01-2024 Magnesium [Mass/Vol] 2.0 mg/dL Normal 1.6-2.6 [facility] Comment on above: Order Comment: Order Date: 05/24/24 Order Info: 0786- - CMP Order Info: [id number] - LIPID Order Info: [id number] - MG Order Info: 3016-3 - TSH Performed By: #### L 501.9520, L500.4050, L500.4100, L100.0100, L501.5200 #### [facility] [address] [place], [address] Thyroid Stim Hormone (TSH)on 06-01-2024 TSH 1.31 uIU/mL Normal 0.358-3.74 [facility] Comment on above: Order Comment: Order Date: 05/24/24 Order Info: 0786-1 - CMP Order Info: [id number] - LIPID Order Info: [id number] - MG Order Info: 3016-3 - TSH Performed By: #### L 501.9520, L500.4050, L500.4100, L100.0100, L501.5200 #### [facility] [address] [place], [place], [address] Urinalysis, Completeon 06-01 EPI,SQUAMOUS 0-5 SEEN Normal 5-10 [facility] Comment on above: Order Comment: Order Date: 05/24/24 Order Info: 0786-1 - CMP Order Info: [id number] - LIPID Order Info: [id number] - MG Order Info: 3015-3 - TSH Performed By: #### L 501.9520, L500.4050, L500.4100, L100.0100, L501.5200 #### [facility] [address] [place], [address] BACTERIA 0 SEEN Normal None Seen [facility] Comment on above: Order Comment: Order Date: 05/24/24 Order Info: 785- - CMP Order Info: [id number] - LIPID Order Info: [id number] - MG Order Info: 3 - TSH Performed By: #### L 501.9520, L500.4050, L500.4100, L100.0100, L501.5200 #### [facility] [address] [place], [address] Mucus Ql (Urine sed) 0 SEEN Normal [facility] Comment on above: Order Comment: Order Date: 05/24/24 Order Info: 07 - CMP Order Info: [id number] - LIPID Order Info: [id number] - MG Order Info: 3 - TSH Performed By: #### L 501.9520, L500.4050, L500.4100, L100.0100, L501.5200 #### [facility] [address] [place], [address] RBC 0 SEEN Normal 0-5 [facility] Comment on above: Order Comment: Order Date: 05/24/24 Order Info: 0786-1 - CMP Order Info: [id number] - LIPID Order Info: [id number] - MG Order Info: 3 - TSH Performed By: #### L 501.9520, L500.4050, L500.4100, L100.0100, L501.5200 #### [facility] [address] [place], [address] WBC 0 SEEN Normal 0-5 [facility] Comment on above: Order Comment: Order Date: 05/24/24 Order Info: 0786-1 - CMP Order Info: [id number] - LIPID Order Info: [id number] - MG Order Info: 3016-3 - TSH Performed By: #### L 501.9520, L500.4050, L500.4100, L100.0100, L501.5200 #### [facility] [address] [place], [place], [address] Absolute lymphocyte countOrd ered By: Adeola Guevara on 01-19-2024 Lymphocytes Auto (Unsp spec) [#/Vol] 1.48 10*3/uL 0.83-4.51 [facility] Automated lymphocyte count a s percentage of total leukocytesOrdered By: Adeola Guevara on 01-19-2024 Lymphocytes/100 WBC Auto (Unsp spec) 42.3 % 19-41 [facility] Basophil percentageOrdered B y: Adeola Guevara on 01-19-2024 Basophil percentage 0 SEEN /hpf 0-5 [facility] Basophils/100 WBC (Bld) 0.9 % 0-1 [facility] Bilirubin [Mass/Vol] 0.50 mg/dL 0.20-1.00 [facility] Comment on above: For patients on eltr ombopag therapy, use of Dimension [place] TBIL is not recommended. Chloride [Moles/Vol] 102 mmol/L 98-107 [facility] Cholesterol [Mass/Vol] 256 mg/dL <200 [facility] Comment on above: <200 mg/dL Desirable 200-240 mg/dL Borderline >240 mg/dL High Risk Eosinophils/100 WBC (Bld) 2.3 % 0-5 [facility] Glucose [Mass/Vol] 104 mg/dL 74-106 [facility] Comment on above: Fasting Glucose resu lt from 100 to 125 mg/dL suggests IMPAIRED HOMEOSTASIS per A.D.A. criteria. Hemoglobin (Bld) [Mass/Vol] 13.6 g/dL 12.0-15.0 [facility] Monocytes/100 WBC (Bld) 14.3 % 0-10 [facility] Neutrophils (Bld) [#/Vol] 1.4 10*3/uL 2.0-7.7 [facility] Neutrophils/100 WBC (Bld) 39.9 % 47-70 [facility] Potassium [Moles/Vol] 3.7 mmol/L 3.5-5.1 [facility] Protein [Mass/Vol] 8.4 g/dL 6.4-8.2 [facility] Sodium [Moles/Vol] 135 mmol/L 136-145 [facility] Triglyceride [Mass/Vol] 35 mg/dL <199 [facility] Comment on above: The drugs N-Acetylcy steine and Metamizole may falsely depress this assay.Serum Triglycerides Reference Interval Normal <150 mg/dL Borderline high 150 - 199 mg/dL High 200 - 499 mg/dL Very High > or = 500 mg/dL WBC (Bld) [#/Vol] 3.5 10*3/uL 4.4-11.0 [facility] Bilirubin Test strip Ql (U)O rdered By: Adeola Guevara on 01-19-2024 Bilirubin Ql (U) Negative Negative [facility] Determination of erythrocyte mean corpuscular volume (MCV)Ordered By: Adeola Guevara on 01-19-2024 MCV (RBC) [Entitic vol] 92.0 fL 81-99 [facility] Erythrocyte distribution wid th ratioOrdered By: Adeola Guevara on 01-19-2024 Erythrocyte distribution width (RBC) [Ratio] 12.0 % 11.6-14.6 [facility] Erythrocyte distribution wid th standard deviationOrdered By: Adeola Guevara on 01-19-2024 Erythrocyte distribution width (RBC) [Entitic vol] 40.4 fL 35.1-43.9 [facility] Hematocrit Auto (Bld) [Volum e fraction]Ordered By: Adeola Guevara on 01-19-2024 Hematocrit (Bld) [Volume fraction] 40.5 % 37-47 [facility] Immature granulocytes/100 WB C Auto (Bld)Ordered By: Adeola Guevara on 01-19-2024 Immature granulocytes/100 WBC (Bld) 0.300 % 0.0-0.9 [facility] Comment on above: IG% - Immature Granu locytes (promyelocytes, myelocytes and metamyelocytes) > 1% indicates that a LEFT SHIFT is Present. Ketones Test strip Ql (U)Ord ered By: Adeola Guevara on 01-19-2024 Ketones Ql (U) Negative Negative [facility] - Chemistry and C hemistry - challengeOrdered By: Adeola Guevara on 01-19-2024 Albumin/Globulin [Mass ratio] 0.9 {ratio} 0.9-2.4 [facility] ALP [Catalytic activity/Vol] 31 U/L 45-117 [facility] ALT [Catalytic activity/Vol] 26 U/L 13-56 [facility] Cholesterol in HDL [Mass/Vol] 94 mg/dL >40 [facility] Comment on above: The drugs N-Acetylcy steine and Metamizole may falsely depress this assay. Reference Range HDL <40 mg/dL Low HDL Cholesterol HDL >or= 60 mg/dL High HDL Cholesterol Cholesterol in LDL [Mass/Vol] 155 mg/dL 0-130 [facility] CO2 [Moles/Vol] 26.0 mmol/L 21.0-32.0 [facility] Globulin (S) [Mass/Vol] 4.4 g/dL 2.2-4.2 [facility] Magnesium [Mass/Vol] 2.2 mg/dL 1.6-[facility].6 [facility] [facility] Urea nitrogen/Creatinine [Mass ratio] 22.0 mg/mg 10-20 [facility] Laboratory - Hematology and Cell countsOrdered By: Adeola Guevara on 01-19-2024 MCH (RBC) [Entitic mass] 30.9 pg 27.0-32.0 [facility] MCHC (RBC) [Mass/Vol] 33.6 g/dL 32-36 [facility] Nucleated RBC/100 WBC (Bld) [Ratio] 0 % 0-5 [facility] Platelet mean volume (Bld) [Entitic vol] 10.4 fL 6.2-12.0 [facility] Platelets (Bld) [#/Vol] 298 10*3/uL 150-450 [facility] Mucus LM Ql (Urine sed)Order ed By: Adeola Guevara on 01-19-2024 Mucus Ql (Urine sed) 0 SEEN /hpf [facility] Nitrite Test strip Ql (U)Ord ered By: Adeola Guevara on 01-19-2024 Nitrite Ql (U) Negative Negative [facility] No Panel InformationOrdered By: Adeola Guevara on 01-19-2024 Estimated GFR (MDRD) Amer 91 mL/min >60 [facility] Comment on above: GFR Calc Estimated GFR (MDRD) Non-Af Amer 75 mL/min >60 [facility] Comment on above: Non- GFR Calc Urine RBC 0 SEEN /hpf 0-5 [facility] VLDL Cholesterol 7 mg/dL 5-40 [facility] Protein Test strip Ql (U)Ord ered By: Adeola Guevara on 01-19-2024 Protein Ql (U) Negative Negative [facility] RBC Auto (Bld) [#/Vol]Ordere d By: Adeola Guevara on 01-19-2024 RBC (Bld) [#/Vol] 4.40 10*6/uL 4.2-5.4 [facility] Serum or plasma calcium valdez urement (mass/volume)Ordered By: Adeola Guevara on 01-19-2024 Calcium [Mass/Vol] 9.3 mg/dL 8.5-10.1 [facility] Serum or plasma creatinine m easurement (mass/volume)Ordered By: Adeola Guevara on 01-19-2024 Creatinine [Mass/Vol] 0.86 mg/dL 0.55-1.02 [facility] Comment on above: The validity of the calculated GFR & GFRAA in patients over 70 years has not been determined. Clinical correlation is essential. Serum or plasma thyroid stim ulating hormone (TSH) measurement (units/volume)Ordered By: Adeola Guevara on 01-19-2024 TSH Qn 0.88 uIU/mL 0.358-3.74 [facility] Serum or plasma urea nitroge n measurement (mass/volume)Ordered By: Adeola Guevara on 01-19-2024 Urea nitrogen [Mass/Vol] 19 mg/dL 7-18 [facility] Squamous epithelial cells de tection in urine sediment by light microscopyOrdered By: Adeola Guevara on 01-19-2024 Epithelial cells.squamous LM Ql (Urine sed) 0 SEEN /hpf 5-10 [facility] Thin prep Papanicolaou smear with manual screeningOrdered By: Adeola Guevara on 01-19-2024 Thin prep Papanicolaou smear with manual screening 4.0 g/dL 3.2-5.0 [facility] Thin prep Papanicolaou smear with manual screening 22 U/L 15-37 [facility] Thin prep Papanicolaou smear with manual screening 7 5-15 [facility] Urine blood detectionOrdered By: Adeola Guevara on 01-19-2024 RBC Ql (U) Negative Negative [facility] Urine clarityOrdered By: Nickolas Guevara on 01-19-2024 Clarity (U) Clear Clear [facility] Urine color determinationOrd ered By: Adeola Guevara on 01-19-2024 Color (U) Yellow Yellow [facility] Urine glucose detectionOrder ed By: Adeola Guevara on 01-19-2024 Glucose Ql (U) Normal mg/dl Normal [facility] Urine leukocyte esterase det ection by dipstickOrdered By: Adeola Guevara on 01-19-2024 Leukocyte esterase Test strip Ql (U) Negative Negative [facility] Urine pHOrdered By: Adeola wisdom on 01-19-2024 pH (U) 6.0 [pH] 5.0 - 8.0 [facility] Urine sediment bacteria coun t by microscopy (number/high power field)Ordered By: Adeola Guevara on 01-19-2024 Bacteria LM.HPF (Urine sed) [#/Area] 0 /[HPF] None Seen [facility] Urine specific gravity measu rementOrdered By: Adeola Guevara on 01-19-2024 Specific gravity (U) [Rel density] 1.015 1.002-1.030 [facility] Urine urobilinogen measureme ntOrdered By: Adeola Guevara on 01-19-2024 Urobilinogen Ql (U) Normal mg/dl Normal [facility] Absolute lymphocyte countOrd ered By: Adeola Guevara on 06-23-2023 Lymphocytes Auto (Unsp spec) [#/Vol] 2.00 10*3/uL 0.83-4.51 [facility] Basophil percentageOrdered B y: Adeola Guevara on 06-23-2023 Basophils/100 WBC (Bld) 0.8 % 0-1 [facility] Bilirubin [Mass/Vol] 0.40 mg/dL 0.20-1.00 [facility] Comment on above: For patients on eltr ombopag therapy, use of Dimension [place] TBIL is not recommended. Chloride [Moles/Vol] 103 mmol/L 98-107 [facility] Cholesterol [Mass/Vol] 241 mg/dL <200 [facility] Comment on above: <200 mg/dL Desirable 200-240 mg/dL Borderline >240 mg/dL High Risk Eosinophils/100 WBC (Bld) 3.1 % 0-5 [facility] Glucose [Mass/Vol] 87 mg/dL 74-106 [facility] Neutrophils (Bld) [#/Vol] 2.1 10*3/uL 2.0-7.7 [facility] Neutrophils/100 WBC (Bld) 44.7 % 47-70 [facility] Potassium [Moles/Vol] 3.4 mmol/L 3.5-5.1 [facility] Protein [Mass/Vol] 8.0 g/dL 6.4-8.2 [facility] Sodium [Moles/Vol] 135 mmol/L 136-145 [facility] Triglyceride [Mass/Vol] 42 mg/dL <199 [facility] Comment on above: The drugs N-Acetylcy steine and Metamizole may falsely depress this assay.Serum Triglycerides Reference Interval Normal <150 mg/dL Borderline high 150 - 199 mg/dL High 200 - 499 mg/dL Very High > or = 500 mg/dL WBC (Bld) [#/Vol] 4.8 10*3/uL 4.4-11.0 [facility] Blood erythrocytes count (nu mber/volume)Ordered By: Adeola Guevara on 06-23-2023 RBC (Bld) [#/Vol] 4.28 10*6/uL 4.2-5.4 [facility] Blood hemoglobin measurement (mass/volume)Ordered By: Adeola Guevara on 06-23-2023 Hemoglobin (Bld) [Mass/Vol] 13.0 g/dL 12.0-15.0 [facility] Blood lymphocytes/100 leukoc ytesOrdered By: Adeola Guevara on 06-23-2023 Lymphocytes/100 WBC (Bld) 41.8 % 19-41 [facility] Blood monocytes/100 leukocyt esOrdered By: Adeola Guevara on 06-23-2023 Monocytes/100 WBC (Bld) 9.4 % 0-10 [facility] Blood platelet mean volumeOr dered By: Adeola Guevara on 06-23-2023 Platelet mean volume (Bld) [Entitic vol] 10.1 fL 6.2-12.0 [facility] Determination of erythrocyte mean corpuscular volume (MCV)Ordered By: Adeola Guevara on 06-23-2023 MCV (RBC) [Entitic vol] 93.9 fL 81-99 [facility] Hematocrit Auto (Bld) [Volum e fraction]Ordered By: Adeola Guevara on 06-23-2023 Hematocrit (Bld) [Volume fraction] 40.2 % 37-47 [facility] Laboratory - Chemistry and C hemistry - challengeOrdered By: Adeola Guevara on 06-23-2023 ALP [Catalytic activity/Vol] 30 U/L 45-117 [facility] ALT [Catalytic activity/Vol] 36 U/L 13-56 [facility] CO2 [Moles/Vol] 25.0 mmol/L 21.0-32.0 [facility] Globulin (S) [Mass/Vol] 4.4 g/dL 2.2-4.2 [facility] Magnesium [Mass/Vol] 2.2 mg/dL 1.6-2.6 [facility] Urea nitrogen/Creatinine [Mass ratio] 18.8 mg/mg 10-20 [facility] Laboratory - Hematology and Cell countsOrdered By: Adeola Guevara on 06-23-2023 Erythrocyte distribution width (RBC) [Entitic vol] 40.5 fL 35.1-43.9 [facility] Erythrocyte distribution width (RBC) [Ratio] 11.8 % 11.6-14.6 [facility] Immature granulocytes/100 WBC (Bld) 0.200 % 0.0-0.9 [facility] Comment on above: IG% - Immature Granu locytes (promyelocytes, myelocytes and metamyelocytes) > 1% indicates that a LEFT SHIFT is Present. MCH (RBC) [Entitic mass] 30.4 pg 27.0-32.0 [facility] Nucleated RBC/100 WBC (Bld) [Ratio] 0 % 0-5 [facility] MCHC Auto (RBC) [Mass/Vol]Or dered By: Adeola Guevara on 06-23-2023 MCHC (RBC) [Mass/Vol] 32.3 g/dL 32-36 [facility] No Panel InformationOrdered By: Adeola Guevara on 06-23-2023 Estimated GFR (MDRD) Amer 93 mL/min >60 [facility] Comment on above: GFR Calc Estimated GFR (MDRD) Non-Af Amer 77 mL/min >60 [facility] Comment on above: Non- GFR Calc Thyroid Stimulating Hormone (TSH) 0.71 uIU/mL 0.358-3.74 [facility] Platelets bldOrdered By: Nickolas Guevara on 06-23-2023 Platelets (Bld) [#/Vol] 294 10*3/uL 150-450 [facility] Serum or plasma albumin valdez urement (mass/volume)Ordered By: Adeola Guevara on 06-23-2023 Albumin [Mass/Vol] 3.6 g/dL 3.2-5.0 [facility] Serum or plasma albumin/glob ulin mass ratioOrdered By: Adeola Guevara on 06-23-2023 Albumin/Globulin [Mass ratio] 0.8 {ratio} 0.9-2.4 [facility] Serum or plasma calcium valdez urement (mass/volume)Ordered By: Adeola Guevara on 06-23-2023 Calcium [Mass/Vol] 8.8 mg/dL 8.5-10.1 [facility] Serum or plasma cholesterol in HDL measurement (mass/volume)Ordered By: Adeola Guevara on 06-23-2023 Cholesterol in HDL [Mass/Vol] 86 mg/dL >40 [facility] Comment on above: The drugs N-Acetylcy steine and Metamizole may falsely depress this assay. Reference Range HDL <40 mg/dL Low HDL Cholesterol HDL >or= 60 mg/dL High HDL Cholesterol Serum or plasma cholesterol in VLDL measurement (mass/volume)Ordered By: Adeola Guevara on 06-23-2023 Cholesterol in VLDL [Mass/Vol] 8 mg/dL 5-40 [facility] Serum or plasma creatinine m easurement (mass/volume)Ordered By: Adeola Guevara on 06-23-2023 Creatinine [Mass/Vol] 0.85 mg/dL 0.55-1.02 [facility] Comment on above: The validity of the calculated GFR & GFRAA in patients over 70 years has not been determined. Clinical correlation is essential. Serum or plasma low density lipoprotein (LDL) cholesterol measurement (mass/volume)Ordered By: Adeola Guevara on 06-23-2023 Cholesterol in LDL [Mass/Vol] 147 mg/dL 0-130 [facility] Serum or plasma urea nitroge n measurement (mass/volume)Ordered By: Adeola Guevara on 06-23-2023 Urea nitrogen [Mass/Vol] 16 mg/dL 7-18 [facility] Thin prep Papanicolaou smear with manual screeningOrdered By: Adeola Guevara on 06-23-2023 Thin prep Papanicolaou smear with manual screening 25 U/L 15-37 [facility] Thin prep Papanicolaou smear with manual screening 7 5-15 [facility] Absolute lymphocyte countOrd ered By: Dr. Guevara on 11-18-2022 Lymphocytes Auto (Unsp spec) [#/Vol] 1.60 10*3/uL 0.83-4.51 [facility] Basophil percentageOrdered B y: Dr. Guevara on 11-18-2022 Basophils/100 WBC (Bld) 1.0 % 0-1 [facility] Bilirubin [Mass/Vol] 0.40 mg/dL 0.20-1.00 [facility] Comment on above: For patients on eltr ombopag therapy, use of Dimension [place] TBIL is not recommended. Chloride [Moles/Vol] 101 mmol/L 98-107 [facility] Cholesterol [Mass/Vol] 216 mg/dL <200 [facility] Comment on above: <200 mg/dL Desirable 200-240 mg/dL Borderline >240 mg/dL High Risk Eosinophils/100 WBC (Bld) 3.1 % 0-5 [facility] Glucose [Mass/Vol] 87 mg/dL 74-106 [facility] Neutrophils (Bld) [#/Vol] 2.6 10*3/uL 2.0-7.7 [facility] Neutrophils/100 WBC (Bld) 52.4 % 47-70 [facility] Potassium [Moles/Vol] 3.4 mmol/L 3.5-5.1 [facility] Protein [Mass/Vol] 8.4 g/dL 6.4-8.2 [facility] Sodium [Moles/Vol] 136 mmol/L 136-145 [facility] Triglyceride [Mass/Vol] 67 mg/dL <199 [facility] Comment on above: The drugs N-Acetylcy steine and Metamizole may falsely depress this assay.Serum Triglycerides Reference Interval Normal <150 mg/dL Borderline high 150 - 199 mg/dL High 200 - 499 mg/dL Very High > or = 500 mg/dL WBC (Bld) [#/Vol] 4.9 10*3/uL 4.4-11.0 [facility] Blood erythrocytes count (nu mber/volume)Ordered By: Dr. Guevara on 11-18-2022 RBC (Bld) [#/Vol] 4.42 10*6/uL 4.2-5.4 [facility] Blood hemoglobin measurement (mass/volume)Ordered By: Dr. Guevara on 11-18-2022 Hemoglobin (Bld) [Mass/Vol] 13.3 g/dL 12.0-15.0 [facility] Blood lymphocytes/100 leukoc ytesOrdered By: Dr. Guevara on 11-18-2022 Lymphocytes/100 WBC (Bld) 32.7 % 19-41 [facility] Blood monocytes/100 leukocyt esOrdered By: Dr. Guevara on 11-18-2022 Monocytes/100 WBC (Bld) 10.4 % 0-10 [facility] Blood platelet mean volumeOr dered By: Dr. Guevara on 11-18-2022 Platelet mean volume (Bld) [Entitic vol] 10.1 fL 6.2-12.0 [facility] Determination of erythrocyte mean corpuscular volume (MCV)Ordered By: Dr. Guevara on 11-18-2022 MCV (RBC) [Entitic vol] 91.4 fL 81-99 [facility] Hematocrit Auto (Bld) [Volum e fraction]Ordered By: Dr. Gueavra on 11-18-2022 Hematocrit (Bld) [Volume fraction] 40.4 % 37-47 [facility] Laboratory - Chemistry and C hemistry - challengeOrdered By: Dr. Guevara on 11-18-2022 Albumin [Mass/Vol] 4.0 g/dL 2.9-4.4 [facility] ALP [Catalytic activity/Vol] 28 U/L 45-117 [facility] ALT [Catalytic activity/Vol] 36 U/L 13-56 [facility] CO2 [Moles/Vol] 26.0 mmol/L 21.0-32.0 [facility] Globulin (S) [Mass/Vol] 4.5 g/dL 2.2-4.2 [facility] Urea nitrogen/Creatinine [Mass ratio] 24.6 mg/mg 10-20 [facility] Laboratory - Hematology and Cell countsOrdered By: Dr. Guevara on 11-18-2022 Erythrocyte distribution width (RBC) [Entitic vol] 40.0 fL 35.1-43.9 [facility] Erythrocyte distribution width (RBC) [Ratio] 11.9 % 11.6-14.6 [facility] Immature granulocytes/100 WBC (Bld) 0.400 % 0.0-0.9 [facility] Comment on above: IG% - Immature Granu locytes (promyelocytes, myelocytes and metamyelocytes) > 1% indicates that a LEFT SHIFT is Present. MCH (RBC) [Entitic mass] 30.1 pg 27.0-32.0 [facility] Nucleated RBC/100 WBC (Bld) [Ratio] 0 % 0-5 [facility] MCHC Auto (RBC) [Mass/Vol]Or dered By: Dr. Guevara on 11-18-2022 MCHC (RBC) [Mass/Vol] 32.9 g/dL 32-36 [facility] No Panel InformationOrdered By: Dr. Guveara on 11-18-2022 Addendum Document Comment . [facility] Comment on above: The SPE pattern appe ars unremarkable. Evidence ofmonoclonal protein is not apparent.Performed at: [facility] [id number] Director: Mark Anthony Nicole PhD, Phone: [phone] Ncubs-2-Xwoyxihqm 0.2 g/dL 0.0-0.4 [facility] Bubxs-0-Dzwuffwdd 0.8 g/dL 0.4-1.0 [facility] Estimated GFR (MDRD) Amer 118 mL/min >60 [facility] Comment on above: GFR Calc Estimated GFR (MDRD) Non-Af Amer 98 mL/min >60 [facility] Comment on above: Non- GFR Calc Gamma Globulins 1.7 g/dL 0.4-1.8 [facility] Thyroid Stimulating Hormone (TSH) 1.10 uIU/mL 0.358-3.74 [facility] Platelets bldOrdered By: Dr. Guevara on 11-18-2022 Platelets (Bld) [#/Vol] 344 10*3/uL 150-450 [facility] Protein Fractions Elph [Inte rp]Ordered By: Dr. Guevara on 11-18-2022 Protein Fractions [Interp] Comment . [facility] Comment on above: Protein electrophore sis scan will follow via computer,mail, or algology teacher delivery. Serum albumin to globulin ra haley by protein electrophoresisOrdered By: Dr. Guevara on 11-18-2022 Albumin/Globulin Elph [Mass ratio] 1.0 0.7-1.7 [facility] Serum globulin measurement ( mass/volume)Ordered By: Dr. Guevara on 11-18-2022 Globulin (S) [Mass/Vol] 3.9 g/dL 2.2-3.9 [facility] Serum or plasma albumin valdez urement (mass/volume)Ordered By: Dr. Guevara on 11-18-2022 Albumin [Mass/Vol] 3.9 g/dL 3.2-5.0 [facility] Serum or plasma albumin/glob ulin mass ratioOrdered By: Dr. Guevara on 11-18-2022 Albumin/Globulin [Mass ratio] 0.9 {ratio} 0.9-2.4 [facility] Serum or plasma beta globuli n measurement by electrophoresis (mass/volume)Ordered By: Dr. Guevara on 11-18-2022 Beta globulin Elph [Mass/Vol] 1.2 g/dL 0.7-1.3 [facility] Serum or plasma calcium valdez urement (mass/volume)Ordered By: Dr. Guevara on 11-18-2022 Calcium [Mass/Vol] 9.0 mg/dL 8.5-10.1 [facility] Serum or plasma cholesterol in HDL measurement (mass/volume)Ordered By: Dr. Guevara on 11-18-2022 Cholesterol in HDL [Mass/Vol] 80 mg/dL >40 [facility] Comment on above: The drugs N-Acetylcy steine and Metamizole may falsely depress this assay. Reference Range HDL <40 mg/dL Low HDL Cholesterol HDL >or= 60 mg/dL High HDL Cholesterol Serum or plasma cholesterol in VLDL measurement (mass/volume)Ordered By: Dr. Guevara on 11-18-2022 Cholesterol in VLDL [Mass/Vol] 13 mg/dL 5-40 [facility] Serum or plasma creatinine m easurement (mass/volume)Ordered By: Dr. Guevara on 11-18-2022 Creatinine [Mass/Vol] 0.69 mg/dL 0.55-1.02 [facility] Comment on above: The validity of the calculated GFR & GFRAA in patients over 70 years has not been determined. Clinical correlation is essential. Serum or plasma low density lipoprotein (LDL) cholesterol measurement (mass/volume)Ordered By: Dr. Guevara on 11-18-2022 Cholesterol in LDL [Mass/Vol] 123 mg/dL 0-130 [facility] Serum or plasma urea nitroge n measurement (mass/volume)Ordered By: Dr. Guevara on 11-18-2022 Urea nitrogen [Mass/Vol] 17 mg/dL 7-18 [facility] Thin prep Papanicolaou smear with manual screeningOrdered By: Dr. Guevara on 11-18-2022 Thin prep Papanicolaou smear with manual screening 20 U/L 15-37 [facility] Thin prep Papanicolaou smear with manual screening 9 5-15 [facility] Thin prep Papanicolaou smear with manual screening See comment [facility] Comment on above: NOT OBSERVED Total protein bloodOrdered B y: Dr. Guevara on 11-18-2022 Protein [Mass/Vol] 7.9 g/dL 6.0-8.5 [facility] Absolute lymphocyte counton 04-21-2022 Lymphocytes Auto (Unsp spec) [#/Vol] 1.19 10*3/uL 0.83-4.51 [facility] Work Phone: Basophil percentageon 2021 Basophil percentage 0 SEEN /hpf 0-5 [facility] Work Phone: Basophils/100 WBC (Bld) 0.8 % 0-1 [facility] Work Phone: Bilirubin [Mass/Vol] 0.30 mg/dL 0.20-1.00 [facility] Work Phone: Comment on above: For patients on eltr ombopag therapy, use of Dimension [place] TBIL is not recommended. Chloride [Moles/Vol] 100 mmol/L 98-107 [facility] Work Phone: Cholesterol [Mass/Vol] 227 mg/dL <200 [facility] Work Phone: Comment on above: <200 mg/dL Desirable 200-240 mg/dL Borderline >240 mg/dL High Risk Eosinophils/100 WBC (Bld) 2.1 % 0-5 [facility] Work Phone: Glucose [Mass/Vol] 112 mg/dL 74-106 [facility] Work Phone: Comment on above: Fasting Glucose resu lt from 100 to 125 mg/dL suggests IMPAIRED HOMEOSTASIS per A.D.A. criteria. Neutrophils (Bld) [#/Vol] 1.9 10*3/uL 2.0-7.7 [facility] Work Phone: Neutrophils/100 WBC (Bld) 51.1 % 47-70 [facility] Work Phone: Potassium [Moles/Vol] 3.4 mmol/L 3.5-5.1 [facility] Work Phone: Protein [Mass/Vol] 7.8 g/dL 6.4-8.2 [facility] Work Phone: [phone] Sodium [Moles/Vol] 137 mmol/L 136-145 [facility] Work Phone: [phone] Triglyceride [Mass/Vol] 40 mg/dL <199 [facility] Work Phone: [phone] Comment on above: The drugs N-Acetylcy steine and Metamizole may falsely depress this assay.Serum Triglycerides Reference Interval Normal <150 mg/dL Borderline high 150 - 199 mg/dL High 200 - 499 mg/dL Very High > or = 500 mg/dL WBC (Bld) [#/Vol] 3.8 10*3/uL 4.4-11.0 [facility] Work Phone: [phone] Bilirubin Test strip Ql (U)o n 04-21-2022 Bilirubin Ql (U) Negative Negative [facility] Work Phone: [phone] Blood erythrocytes count (nu mber/volume)on 04-21-2022 RBC (Bld) [#/Vol] 4.07 10*6/uL 4.2-5.4 [facility] [phone] Blood hemoglobin measurement (mass/volume)on 04-21-2022 Hemoglobin (Bld) [Mass/Vol] 12.5 g/dL 12.0-15.0 [facility] Work Phone: [phone] Blood lymphocytes/100 leukoc yteson 04-21-2022 Lymphocytes/100 WBC (Bld) 31.6 % 19-41 [facility] Work Phone: [phone] Blood monocytes/100 leukocyt eson 04-21-2022 Monocytes/100 WBC (Bld) 14.1 % 0-10 [facility] Work Phone: [phone] Blood platelet mean volumeon 04-21-2022 Platelet mean volume (Bld) [Entitic vol] 10.0 fL 6.2-12.0 [facility] Work Phone: [phone] Determination of erythrocyte mean corpuscular volume (MCV)on 06-29-2022 MCV (RBC) [Entitic vol] 90.9 fL 81-99 [facility] Work Phone: [phone] Hematocrit Auto (Bld) [Volum e fraction]on 04-21-2022 Hematocrit (Bld) [Volume fraction] 37.0 % 37-47 [facility] Work Phone: [phone] Ketones Test strip Ql (U)on 04-21-2022 Ketones Ql (U) Negative Negative [facility] Work Phone: [phone] Laboratory - Chemistry and C hemistry - challengeon 04-21-2022 ALP [Catalytic activity/Vol] 29 U/L 45-117 [facility] Work Phone: [phone] ALT [Catalytic activity/Vol] 32 U/L 13-56 [facility] Work Phone: [phone] CO2 [Moles/Vol] 30.0 mmol/L 21.0-32.0 [facility] Work Phone: [phone] Globulin (S) [Mass/Vol] 4.1 g/dL 2.2-4.2 [facility] Work Phone: [phone] Urea nitrogen/Creatinine [Mass ratio] 30.0 mg/mg 10-20 [facility] Work Phone: [phone] Laboratory - Hematology and Cell countson 04-21-2022 Erythrocyte distribution width (RBC) [Entitic vol] 40.2 fL 35.1-43.9 [facility] Work Phone: [phone] Erythrocyte distribution width (RBC) [Ratio] 12.0 % 11.6-14.6 [facility] Work Phone: [phone] Immature granulocytes/100 WBC (Bld) 0.300 % 0.0-0.9 [facility] Work Phone: [phone] Comment on above: IG% - Immature Granu locytes (promyelocytes, myelocytes and metamyelocytes) > 1% indicates that a LEFT SHIFT is Present. MCH (RBC) [Entitic mass] 30.7 pg 27.0-32.0 [facility] Work Phone: Nucleated RBC/100 WBC (Bld) [Ratio] 0 % 0-5 [facility] Work Phone: MCHC Auto (RBC) [Mass/Vol]on 04-21-2022 MCHC (RBC) [Mass/Vol] 33.8 g/dL 32-36 [facility] Work Phone: Mucus LM Ql (Urine sed)on Mucus Ql (Urine sed) 0 SEEN /hpf [facility] Work Phone: Nitrite Test strip Ql (U)on 04-21-2022 Nitrite Ql (U) Negative Negative [facility] Work Phone: No Panel Informationon 04-21 Estimated GFR (MDRD) Amer 139 mL/min >60 [facility] Work Phone: Comment on above: GFR Calc Estimated GFR (MDRD) Non-Af Amer 115 mL/min >60 [facility] Work Phone: Comment on above: Non- GFR Calc Thyroid Stimulating Hormone (TSH) 1.19 uIU/mL 0.358-3.74 [facility] [facility] Work Phone: Platelets bldon 04-21-2022 Platelets (Bld) [#/Vol] 260 10*3/uL 150-450 [facility] Work Phone: Protein Test strip Ql (U)on 04-21-2022 Protein Ql (U) Negative Negative [facility] Work Phone: [phone] Serum or plasma albumin valdez urement (mass/volume)on 04-21-2022 Albumin [Mass/Vol] 3.7 g/dL 3.2-5.0 [facility] Work Phone: Serum or plasma albumin/glob ulin mass ratioon 04-21-2022 Albumin/Globulin [Mass ratio] 0.9 {ratio} 0.9-2.4 [facility] Work Phone: Serum or plasma calcium valdez urement (mass/volume)on 04-21-2022 Calcium [Mass/Vol] 9.2 mg/dL 8.5-10.1 [facility] Work Phone: Serum or plasma cholesterol in HDL measurement (mass/volume)on 04-21-2022 Cholesterol in HDL [Mass/Vol] 96 mg/dL >40 [facility] Work Phone: Comment on above: The drugs N-Acetylcy steine and Metamizole may falsely depress this assay. Reference Range HDL <40 mg/dL Low HDL Cholesterol HDL >or= 60 mg/dL High HDL Cholesterol Serum or plasma cholesterol in VLDL measurement (mass/volume)on 04-21-2022 Cholesterol in VLDL [Mass/Vol] 8 mg/dL 5-40 [facility] Work Phone: [phone] Serum or plasma creatinine m easurement (mass/volume)on 04-21-2022 Creatinine [Mass/Vol] 0.60 mg/dL 0.55-1.02 [facility] Work Phone: Comment on above: The validity of the calculated GFR & GFRAA in patients over 70 years has not been determined. Clinical correlation is essential. Serum or plasma low density lipoprotein (LDL) cholesterol measurement (mass/volume)on 04-21-2022 Cholesterol in LDL [Mass/Vol] 123 mg/dL 0-130 [facility] Work Phone: Serum or plasma urea nitroge n measurement (mass/volume)on 04-21-2022 Urea nitrogen [Mass/Vol] 18 mg/dL 7-18 [facility] Work Phone: [phone] Squamous epithelial cells de tection in urine sediment by light microscopyon 04-21-2022 Epithelial cells.squamous LM Ql (Urine sed) 0-5 SEEN /hpf 5-10 [facility] Work Phone: [phone] Thin prep Papanicolaou smear with manual screeningon 04-21-2022 Thin prep Papanicolaou smear with manual screening 21 U/L 15-37 [facility] Work Phone: [phone] Thin prep Papanicolaou smear with manual screening 7 5-15 [facility] Work Phone: [phone] Urine blood detectionon 03-25 RBC Ql (U) Negative Negative [facility] Work Phone: RBC Ql (U) 0 SEEN /hpf 0-5 [facility] Work Phone: Urine clarityon 04-21-2022 Clarity (U) Sl. Cloudy Clear [facility] Work Phone: Urine color determinationon 04-21-2022 Color (U) Yellow Yellow [facility] Work Phone: Urine glucose detectionon Glucose Ql (U) Normal mg/dl Normal [facility] Work Phone: [phone] Urine leukocyte esterase det ection by dipstickon 04-21-2022 Leukocyte esterase Test strip Ql (U) Negative Negative [facility] Work Phone: Urine pHon 04-21-2022 pH (U) 6.0 [pH] 5.0 - 8.0 [facility] Work Phone: Urine sediment bacteria coun t by microscopy (number/high power field)on 04-21-2022 Bacteria LM.HPF (Urine sed) [#/Area] 0 /[HPF] None Seen [facility] Work Phone: Urine specific gravity measu rementon 04-21-2022 Specific gravity (U) [Rel density] 1.015 1.002-1.030 [facility] Work Phone: Urobilinogen Auto test strip Ql (U)on 04-21-2022 Urobilinogen Ql (U) Normal mg/dl Normal [facility] Work Phone: Whole blood hemoglobin A1c/t otal hemoglobin ratio (mass fraction)on 04-21-2022 HbA1c (Bld) [Mass fraction] 5.5 % 3.8-5.6 [facility] Work Phone: Comment on above: Normal < 5.7 % Predi abetic 5.7 - 6.4 % Diabetic >or= 6.5 % Please note range changes. Laboratory - Microbiology an d Antimicrobial susceptibilityon 03-17-2022 SARS-CoV-2 (COVID-19) RNA ANGELI+probe Ql (Unsp spec) Detected Not Detect [facility] Work Phone: Comment on above: Normal Reference Ran ge: Not DetectedMethod:(RT-PCR) real-time reverse transcriptase PCRLuminex THAIS Instrument*The Food and Drug Administration (FDA) has issued an Emergency Use Authorization (EAU) for the THAIS SARS-CoV-2 Assay for the rapid detection of the virus that causes COVID-19. This test has been validated, but the FDAs independent review of this validation is pending.*Negative results do not preclude infection and should not be used as the sole basis for treatment or patient management. Optimum specimen types and timing for peak viral levels during infections caused by SARS-CoV-2 have not been determined. Collection of multiple specimens from the same patient may be necessary to detect the virus. The possibility of a false negative result should be considered if the patient has clinical presentation or has had recent exposure. CNOVon 02-23-2019 CNOV Office Visit (WSTR) ---- EUGENIE HENRY ([id number]) 1975 F Date Time Provider Department 02/23/19 9:30 AM FIDELIA GARZA (HOLLY) [facility] During your visit today, we recorded the following information about you: Temperature Pulse Respiration Blood pressure 98.7 degrees 84/minute 16/minute 126/88 Weight 80.6 kg Fidelia Garza APRN.CNP 02/23/2019 10:00 AM Signed Subjective HPI HPI Eugenie Martinez Sonja is a 43 year old female who presents today for CC of tooth pain/broken tooth. This started 3. Has tried many otc medication. Symptoms are worsened by nothing. Risk factors recent broken tooth/hx of tooth infections. Denies possibility of being . .Patient presents with: Dental Problem PAST MEDICAL HISTORY Diagnosis Date - NEGATIVE MEDICAL HISTORY PAST SURGICAL HISTORY Procedure Laterality Date - PAST SURGICAL HISTORY OF removal of ovary and fallopian tube ALLERGIES Patient has no known allergies. MEDICATIONS hydrochlorothiazide (HYDRODIURIL, ESIDRIX) 25 mg tablet Take 1 tablet by mouth once daily. ibuprofen (MOTRIN) 800 mg tablet Take 800 mg by mouth every 6 hours as needed. FAMILY HISTORY Problem Relation Age of Onset - Hypertension Mother - Hypertension Father - Diabetes Mother - Heart Father - Hypertension Brother - Hypertension Brother - Hypertension Brother Social History Tobacco Use - Smoking status: Current Every Day Smoker Packs/day: 0.60 Years: 14.00 Pack years: 8.40 - Smokeless tobacco: Never Used - Tobacco comment: most recent quit . Substance Use Topics - Alcohol use: Yes Comment: occasional - Drug use: No ROS Objective Blood pressure 126/88, pulse 84, temperature 37.1 ?C (98.7 ?F), temperature source Left Tympanic, resp. rate 16, weight 80.6 kg (177 lb 12.8 oz). Physical Exam Constitutional: She is oriented to person, place, and time and well-developed, well-nourished, and in no distress. Non-toxic appearance. She does not have a sickly appearance. No distress. HENT: Head: Normocephalic and atraumatic. Right Ear: Hearing, tympanic membrane, external ear and ear canal normal. Left Ear: Hearing, tympanic membrane, external ear and ear canal normal. Nose: Nose normal. Mouth/Throat: Uvula is midline, oropharynx is clear and moist and mucous membranes are normal. Abnormal dentition. Eyes: Pupils are equal, round, and reactive to light. Conjunctivae and lids are normal. Right eye exhibits no discharge. Left eye exhibits no discharge. No scleral icterus. Neck: Trachea normal and normal range of motion. Neck supple. Lymphadenopathy: She has no cervical adenopathy. Neurological: She is alert and oriented to person, place, and time. Skin: No rash noted. She is not diaphoretic. ASSESSMENT/PLAN: 1. Dental infection - ICD9: 522.4, ICD10: K04.7 -possible abscess Take medication as ordered See dentist kerri Follow up if signs of infection worsen - AMOXICILLIN 875 MG-POTASSIUM CLAVULANATE 125 MG TABLET Prescription instructions reviewed with patient as applicable. Patient advised if symptoms do not improve or if symptoms worsen sooner, to contact the office for further evaluation by their primary care physician. Potential red flag symptoms discussed with the patient. Reviewed appropriate action plan to take if red flag symptoms occur. Patient agreeable to treatment plan. TOMER Delaney APRN.CNP 02/23/2019 9:46 AM Signed ASSESSMENT/PLAN: 1. Dental infection - ICD9: 522.4, ICD10: K04.7 Take medication as ordered See dentist kerri Follow up if signs of infection worsen - AMOXICILLIN 875 MG-POTASSIUM CLAVULANATE 125 MG TABLET Referring Provider: SELF [200] Allergies As of Date: 02/23/2019 (No Known Allergies) Date Reviewed: 02/23/2019 Reviewed by: Radha Yang Ma - Fully Assessed Reason for Visit: Dental Problem [31] Primary Visit Diagnosis:Dental infection [K04.7] Order(s):amoxicilli n-clavulanic acid (AUGMENTIN) 875-125 mg per tabletTake 1 tablet by mouth twice daily for 10 days.Disp: 20 tabletRfl: 0 Prescriptions as of 02/23/2019 Sig: AMOXICILLIN 875 MG-POTASSIUM * Take 1 tablet by mouth twice * HYDROCHLOROTHIAZIDE 25 MG TAB* Take 1 tablet by mouth once d* Patient not taking: Reported on 02/23/2019 IBUPROFEN 800 MG TABLET Take 800 mg by mouth every 6 * Problem List As Of Date: 02/23/2019 (None) Other instructions from your clinician: ASSESSMENT/PLAN: 1. Dental infection - ICD9: 522.4, ICD10: K04.7 Take medication as ordered See dentist kerri Follow up if signs of infection worsen - AMOXICILLIN 875 MG-POTASSIUM CLAVULANATE 125 MG TABLET Prescriptions ordered this encounter Disp Refills Start End AMOXICILLIN 875 MG-POTASSIUM CLAVULA* 20 t* 0 02/23/2019 03/05/2019 Route: ORAL Sig: Take 1 tablet by mouth twice daily for 10 days. Encounter Status:Closed by FIDELIA GARZA CNP on 02/23/19 [facility] 02-23-2019 Protein mass conc HNO ID: [id number] Author: Fidelia Garza Service: ? Author Type: Nurse Practitioner Type: Progress Notes Filed: 02/23/2019 10:00 AM Note Text: Subjective HPI HPI Eugenie Henry is a 43 year old female who presents today for CC of tooth pain/broken tooth. This started 3. Has tried many otc medication. Symptoms are worsened by nothing. Risk factors recent broken tooth/hx of tooth infections. Denies possibility of being . .Patient presents with: Dental Problem PAST MEDICAL HISTORY Diagnosis Date - NEGATIVE MEDICAL HISTORY PAST SURGICAL HISTORY Procedure Laterality Date - PAST SURGICAL HISTORY OF removal of ovary and fallopian tube ALLERGIES Patient has no known allergies. MEDICATIONS hydrochlorothiazide (HYDRODIURIL, ESIDRIX) 25 mg tablet Take 1 tablet by mouth once daily. ibuprofen (MOTRIN) 800 mg tablet Take 800 mg by mouth every 6 hours as needed. FAMILY HISTORY Problem Relation Age of Onset - Hypertension Mother - Hypertension Father - Diabetes Mother - Heart Father - Hypertension Brother - Hypertension Brother - Hypertension Brother Social History Tobacco Use - Smoking status: Current Every Day Smoker Packs/day: 0.60 Years: 14.00 Pack years: 8.40 - Smokeless tobacco: Never Used - Tobacco comment: most recent quit . Substance Use Topics - Alcohol use: Yes Comment: occasional - Drug use: No ROS Objective Blood pressure 126/88, pulse 84, temperature 37.1 ?C (98.7 ?F), temperature source Left Tympanic, resp. rate 16, weight 80.6 kg (177 lb 12.8 oz). Physical Exam Constitutional: She is oriented to person, place, and time and well-developed, well-nourished, and in no distress. Non-toxic appearance. She does not have a sickly appearance. No distress. HENT: Head: Normocephalic and atraumatic. Right Ear: Hearing, tympanic membrane, external ear and ear canal normal. Left Ear: Hearing, tympanic membrane, external ear and ear canal normal. Nose: Nose normal. Mouth/Throat: Uvula is midline, oropharynx is clear and moist and mucous membranes are normal. Abnormal dentition. Eyes: Pupils are equal, round, and reactive to light. Conjunctivae and lids are normal. Right eye exhibits no discharge. Left eye exhibits no discharge. No scleral icterus. Neck: Trachea normal and normal range of motion. Neck supple. Lymphadenopathy: She has no cervical adenopathy. Neurological: She is alert and oriented to person, place, and time. Skin: No rash noted. She is not diaphoretic. ASSESSMENT/PLAN: 1. Dental infection - ICD9: 522.4, ICD10: K04.7 -possible abscess Take medication as ordered See dentist kerri Follow up if signs of infection worsen - AMOXICILLIN 875 MG-POTASSIUM CLAVULANATE 125 MG TABLET Prescription instructions reviewed with patient as applicable. Patient advised if symptoms do not improve or if symptoms worsen sooner, to contact the office for further evaluation by their primary care physician. Potential red flag symptoms discussed with the patient. Reviewed appropriate action plan to take if red flag symptoms occur. Patient agreeable to treatment plan. Fidelia Garza APRN.LOCKER OPERATOR Normal [facility] Vital Signs Date Time Vital Sign Value Performing Clinician Marce lee 05-17-2025 09:21-0400 Diastolic blood pressure 88 mm[Hg] Dr. Adeola Guevara MD Work Phone: [facility] 05-17-2025 09:21-0400 Systolic blood pressure 127 mm[Hg] Dr. Adeola Guevara MD Work Phone: [facility] 05-17-2025 09:13-0400 Body height 165.[address] Adeola Guevara MD Work Phone: [facility] 05-17-2025 09:13-0400 Body mass index (BMI) [Ratio] 30.9 kg/m2 Dr. Adeola Guevara MD Work Phone: [facility] 05-17-2025 09:13-0400 Body weight 84.[address] Adeola Guevara MD Work Phone: [facility] 05-17-2025 09:13-0400 Respiratory rate 18 /min Dr. Adeola Guevara MD Work Phone: [facility] Encounters Encounter Date Encounter Type Care Provider Facility Start: 05-30-2025 ambulatory Adeola Guevara Facilit y:[facility] Start: 05-22-2025 Encounter for other preprocedural examination Mary Jo Smith [facility] Start: 05-17-2025 End: 05-17-[address] Mary Jo Smith MD -[facility] Work Phone: Start: 05-17-2025 End: 05-17-[address] Adeola Guevara MD Work Phone: -[facility] Start: 05-06-2025 End: 05-06-2025 ambulatory ADEOLA GUEVARA MD Facility:[facility] Start: 05-06-2025 End: 05-06-2025 Patient encounter procedure ADEOLA GUEVARA MD [facility] Start: 05-02-2025 End: 05-02-[address] Adeola Guevara MD Work Phone: [facility] Start: 05-02-2025 End: 05-02-[address] Adeola Guevara MD [facility] Work Phone: Start: 05-02-2025 End: 05-02-2025 ambulatory Adeola Guevara Facility:[facility] Start: 03-15-2025 End: 03-15-[address] Adeola Guevara MD Work Phone: [facility] Work Phone: Start: 03-15-2025 End: 03-15-[address] Adeola Guevara MD -[facility] [place] Work Phone: Start: 03-15-2025 End: 03-15-2025 ambulatory Adeola Guevara Facility:[facility] Start: 06-01-2024 End: 06-01-2024 ambulatory Adeola Guevara Facility:[facility] Start: 01-19-2024 End: 01-19-[address] Adeola Guevara Work Phone: [facility] Work Phone: Start: 01-19-2024 End: 01-19-[address] Adeola Guevara Work Phone: [facility] Start: 01-11-2024 End: 01-11-[address] Adeola Guevara Work Phone: [facility] Work Phone: Start: 08-31-2023 End: 08-31-2023 ambulatory [facility] Work Phone: Start: 08-31-2023 End: 08-31-2023 [facility] Work [facility] Start: 06-23-2023 End: 06-23-2023 ambulatory [facility] Work Phone: Start: 06-23-2023 End: 06-23-2023 Patient encounter procedure [facility] Start: 12-10-2022 End: 12-10-2022 ambulatory [facility] Work Phone: Start: 12-10-2022 End: 12-10-2022 Patient encounter procedure [facility] Start: 12-08-2022 End: 12-08-2022 ambulatory [facility] Work Phone: Start: 12-08-2022 End: 12-08-2022 Patient encounter procedure [facility] Start: 11-18-2022 End: 11-18-2022 ambulatory [facility] Work Phone: Start: 11-18-2022 End: 11-18-2022 Patient encounter procedure [facility] Start: 04-21-2022 End: 04-21-2022 Patient encounter procedure [facility] Start: 03-17-2022 End: 03-17-2022 Patient encounter procedure [facility] Spec[facility] Procedures Date Procedure Procedure Detail Performing Clinician Start: 05-02-2025 Screening mammography Asiya Guevara MD Work Phone: Start: 03-15-2025 Urnls dip stick/tabl et reagent auto microscopy Dr. Adeola Guevara MD Work Phone: Start: 03-15-2025 Vitamin D, 25-hydrox y measurement Dr. Adeola Guevara MD Work Phone: Comment on above: Vitamin D StatusDefi ciency: <20 ng/mL (50nmol/L)Insufficiency: 20-30 ng/mL (50-75 nmol/L)Sufficiency: 30-100 ng/mL (75-250 nmol/L)Toxicity: >100 ng/mL (>250 nmol/L) Start: 12-10-2022 Ultrasonography of breast Start: 12-08-2022 Screening mammography History of cholecystectomy Hx of cholecystectomy Comment on above: 12/18/2019 Plan of Treatment Date Care Activity Detail Author Path report.final Dx Spec [facility] Payers Date Payer Category Payer Private Health Insurance [id number] 2024 Self-pay [id number] 2024 Unknown [id number] 1975 Unknown [id number] Private Health Insurance [id number] Unknown [id number] Unknown [id number] Unknown [id number] [id number] Unknown [id number] [id number] Unknown [id number] [id number] Unknown [id number] Social History Date Type Detail Facility Start: 08-08-2021 End: 08-08-2021 Tobacco smoking status NHIS Unknown if ever smoked [facility] Start: 12-12-2019 Cigarettes [facility] Start: 1975 Sex Assigned At Female W [facility] Start: 08-08-2021 Tobacco smoking stat NHIS Ex-smoker (finding) [facility] Tobacco smoking status [facility] Start: 05-01-2025 Sex Female (finding) [facility] Medical Equipment Procedure Code Equipment Code Equipment Original Text Equipment Identifier Dates Total cholecystectomy with exploration of common bile duct CLIP,HEMOLOCK OLGA LIDIA WECK FDA Start: 12-18-2019 Total cholecystectomy with exploration of common bile duct CLIP,HEMOLOCK MED WECK FDA Start: 12-18-2019 Total cholecystectomy with exploration of common bile duct CLIP,HEMOLOCK MED WECK FDA Start: 12-18-2019 Total cholecystectomy with exploration of common bile duct CLIP,HEMOLOCK MED WECK FDA Start: 12-18-2019 Total cholecystectomy with exploration of common bile duct CLIP,HEMOLOCK MED WECK FDA Start: 12-18-2019 Total cholecystectomy with exploration of common bile duct CLIP,HEMOLOCK OLGA LIDIA WECK FDA Start: 12-18-2019 Total cholecystectomy with exploration of common bile duct CLIP,HEMOLOCK MED WECK FDA Start: 12-18-2019 Total cholecystectomy with exploration of common bile duct CLIP,HEMOLOCK MED WECK FDA Start: 12-18-2019 Total cholecystectomy with exploration of common bile duct CLIP,HEMOLOCK MED WECK FDA Start: 12-18-2019 Total cholecystectomy with exploration of common bile duct CLIP,HEMOLOCK MED WECK FDA Start: 12-18-2019 Total cholecystectomy with exploration of common bile duct CLIP,HEMOLOCK OLGA LIDIA WECK FDA Start: 12-18-2019 Total cholecystectomy with exploration of common bile duct CLIP,HEMOLOCK MED WECK FDA Start: 12-18-2019 Total cholecystectomy with exploration of common bile duct CLIP,HEMOLOCK MED WECK FDA Start: 12-18-2019 Total cholecystectomy with exploration of common bile duct CLIP,HEMOLOCK MED WECK FDA Start: 12-18-2019 Total cholecystectomy with exploration of common bile duct CLIP,HEMOLOCK MED WECK FDA Start: 12-18-2019 Total cholecystectomy with exploration of common bile duct CLIP,HEMOLOCK MED WECK FDA Start: 12-18-2019 Total cholecystectomy with exploration of common bile duct CLIP,HEMOLOCK MED WECK FDA Start: 12-18-2019 Total cholecystectomy with exploration of common bile duct CLIP,HEMOLOCK MED WECK FDA Start: 12-18-2019 Total cholecystectomy with exploration of common bile duct CLIP,HEMOLOCK OLGA LIDIA WECK FDA Start: 12-18-2019 Total cholecystectomy with exploration of common bile duct CLIP,HEMOLOJERMAN DUGGAN WECK FDA Start: 12-18-2019 Total cholecystectomy with exploration of common bile duct CLIP,HEMOLOJERMAN DUGGAN WECK FDA Start: 12-18-2019 Total cholecystectomy with exploration of common bile duct CLIP,HEMHERON DUGGAN WECK FDA Start: 12-18-2019 Total cholecystectomy with exploration of common bile duct CLIP,HEMOLOJERMAN DUGGAN WECK FDA Start: 12-18-2019 Total cholecystectomy with exploration of common bile duct CLIP,HEMOLOJERMAN DUGGAN WECK FDA Start: 12-18-2019 Total cholecystectomy with exploration of common bile duct CLIP,HEMOLOJERMAN DUGGAN WECK FDA Start: 12-18-2019 Total cholecystectomy with exploration of common bile duct CLIP,HEMHERON DUGGAN WECK FDA Start: 12-18-2019 Total cholecystectomy with exploration of common bile duct CLIP,HEMHERON [place]CK FDA Start: 12-18-2019 Total cholecystectomy with exploration of common bile duct CLIP,HEMHERON DUGGAN WEJERMAN FDA Start: 12-18-2019 Total cholecystectomy with exploration of common bile duct CLIP,HEMHERON DUGGAN WECK FDA Start: 12-18-2019 Total cholecystectomy with exploration of common bile duct CLIP,HEMHERON DUGGAN WECK FDA Start: 12-18-2019 Total cholecystectomy with exploration of common bile duct CLIP,HEMHERON DUGGAN WECK FDA Start: 12-18-2019 Total cholecystectomy with exploration of common bile duct CLIP,HEMHERON RIVERA FDA Start: 12-18-2019 Total cholecystectomy with exploration of common bile duct CLIP,HEMHERON DUGGAN WECK FDA Start: 12-18-2019 Clinical Note 05-06-2025 Note Date & Type Note Facility 05-06-2025 Note Exam Date Time Procedure Performing Provider Status 05/06/25 2:19 PM US Groin Right MENDY MALLOY MD; Auth (Verified) [id number] ORIGINAL EXAMINATION: Right groin ultrasound TECHNIQUE: This report is based on interpretation of permanently recorded ultrasound images. COMPARISON: None. HISTORY: ORDERING SYSTEM PROVIDED HISTORY: Reason for Exam: INGUINAL HERNIA FINDINGS: Ultrasound of the right groin was performed supine and standing with and without Valsalva. Ultrasound findings reveal a 5 x 1.7 x 2.9 cm fat containing inguinal hernia that is only seen with the patient upright. The hernia spontaneously reduces when supine, even with Valsalva. The hernia neck measures approximately 1.4 cm. IMPRESSION: 5 cm fat containing right inguinal hernia as described above which spontaneously reduces while supine. I have personally reviewed the images of this examination and agree with the resident's findings and interpretation. Interpreted by: Mendy Malloy MD Preliminary Report By: Bertrand Terry Electronically signed By Mendy Malloy MD Dictated Date: 05/06/2025 2:45:54 PM Prelim Date: 05/06/2025 2:58:59 PM Sign Date: 05/06/2025 2:58:59 PM Ordering Provider: ADEOLA GUEVARA [facility] Chief complaint+Reason for visit Narrative Note Date & Type Note Facility Chief complaint+Reason for v isit Narrative [facility] Work Phone: Evaluation + Plan note Note Date & Type Note Facility Evaluation + Plan note No data available for this section [facility] Evaluation note Note Date & Type Note Facility Evaluation note No assessment information availa [facility] Work Phone: Hospital Discharge instructions Note Date & Type Note Facility Hospital Discharge instructions No data available for this section [facility] Progress note Note Date & Type Note Facility Progress note No data available for this section [facility] Reason for referral (narrative) Note Date & Type Note Facility Reason for referral (narrative) No reason for referral information available [facility] Work Phone: Summary Purpose Family History No Family History Records Found Relationship Condition Age at Onset Recorded Date/T parvez father Malignant neoplasm Unknown mother Hypertension Unknown brother Asthma Unknown Advance Directives No Advanced Directives Records Found Advance Directive Response Recorded Date/ Time Living Will No August 08 8:38am Power of Food And Beverage Service Manager No August 08, 2021 8:38am Advance Directive Response Recorded Date/ Time Living Will No August 08 7:38am Power of Food And Beverage Service Manager No August 08, 2021 7:38am Chief Complaint and Reason for Visit Chief Complaint SCREENING LT BREAST ABN MAMM Chief Complaint PAP FOR CERVICAL CAN CER SCREEN Chief Complaint Admit Date EOMarch 15, 2025 2:46p m Chief Complaint Admit Date EOMarch 15, 2025 2:46p m SCREENING May 02, 2025 7:53 am Chief Complaint Admit Date EOMarch 15, 2025 2:46p m SCREENING May 02, 2025 7:53 am INGUINAL HERNIA May 17, 2025 8:53 am Additional Source Comments INFORMATION SOURCE (unrecogn ized section and content) DATE CREATED AUTHOR 03/13/2019 [facility] DATE CREATED AUTHOR AUTHOR'S ORGANIZ ATION 05/10/2025 [facility] DATE CREATED AUTHOR AUTHOR'S ORGANIZ ATION 05/23/2025 [facility] Goals (unrecognized section and content) Goals may be documented in a n alternate sectionGoals may be documented in an alternate sectionGoals may be documented in an alternate sectionGoals may be documented in an alternate sectionGoals may be documented in an alternate sectionGoals may be documented in an alternate sectionGoals may be documented in an alternate sectionGoals may be documented in an alternate sectionGoals may be documented in an alternate section No data available for this sectionGoals may be documented in an alternate sectionGoals may be documented in an alternate section Care Teams (unrecognized sec tion and content) Team Status: Active Member Role Status Dates Dr. Adeola Guevara MD Primary Care Provider Active Team Status: Inactive Member Role Status Dates Dr. Adeola Guevara MD Primary Care Pr ovider, Attending Provider, Referring Provider Active Team Status: Inactive Member Role Status Dates Dr. Adeola Guevara MD Primary Care Provider, Attend ing Provider Active Team Status: Active Member Role Status Dates Dr. Adeola Guevara MD Primary Care Provider, Attend ing Provider Active Team Status: Inactive Member Role Status Dates Dr. Adeola Guevara MD Primary Care Provider Active BROCK Cruz Attending Provider, Referr ing Provider Active Team Status: Inactive Member Role Status Dates Dr. Adeola Guevara MD Primary Care Provider, Referr ing Provider Active Jeffrey ANDRADE, PA Attending Provider Active Team Status: Inactive Member Role Status Dates Dr. Adeola Guevara MD Primary Care Provider Active Start: March 15, 2025 End: March 15, 2025 Dr. Adeola Guevara MD Attending Provider Active Start: March 15, 2025 End: March 15, 2025 Dr. Adeola Guevara MD Referring Provider Active Start: March 15, 2025 End: March 15, 2025 Team Status: Active Member Role/Relationship Status Dates Dr. Adeola Guevara MD Primary Care Provider Active Team Status: Inactive Member Role/Relationship Status Dates Dr. Adeola Guevara MD Primary Care Provider Active Start: March 15, 2025 End: March 15, 2025 Dr. Adeola Guevara MD Attending Provider Active Start: March 15, 2025 End: March 15, 2025 Dr. Adeola Guevara MD Referring Provider Active Start: March 15, 2025 End: March 15, 2025 Team Status: Inactive Member Role/Relationship Status Dates Dr. Adeola Guevara MD Primary Care Provider Active Start: May 02, 2025 End: May 02, 2025 Dr. Adeola Guevara MD Attending Provider Active Start: May 02, 2025 End: May 02, 2025 Dr. Adeola Guevara MD Referring Provider Active Start: May 02, 2025 End: May 02, 2025 Team Status: Inactive Member Role/Relationship Status Dates Dr. Adeola Guevara MD Primary Care Provider Active Start: May 17, 2025 End: May 17, 2025 Dr. Adeola Guevara MD Referring Provider Active Start: May 17, 2025 End: May 17, 2025 Dr. Mary Jo Smith MD Attending Provider Active Start: May 17, 2025 End: May 17, 2025 FOR RECORDS PERTAINING TO PATIENTS WHO ARE OR HAVE BEEN ENROLLED IN A CHEMICAL DEPENDENCY/SUBSTANCEABUSE PROGRAM, SOME INFORMATION MAY BE OMITTED. This clinical summary was aggregated from multiple sources. Caution should be exercised in using it in the provision of clinical care. This summary normalizes information from multiple sources, and as a consequence, information in this document may materially change the coding, format and clinical context of patient data. In addition, data may be omitted in some cases. CLINICAL DECISIONS SHOULD BE BASED ON THE PRIMARY CLINICAL RECORDS. [facility] [employer] provides no warranty or guarantee of the accuracy or completeness of information in this document.
[2025-05-30 06:49] LABS: Internal QC Validated? YES +Cl - CLEAR BKGD; Pregnancy, Urine Negative Negative; Record Kit Lot#,Urine Preg 0000962302
--- NOTE | 2025-05-30 07:02 | PRE.ANES_ITS ---
ASA Classification* ASA Classification ASA Classification: 2 Assessment & Plan Anesthesia* Anesthesia Assessment Anesthesia Assessment: Discussed sedation and/or anesthesia options, risks, benefits, and alternatives with patient/parents/legal guardian/POA. Questions invited. The patient/parents/legal guardian/POA seems to understand and agrees to proceed with anesthesia plan. Reviewed the physical assessment, medical history, allergy history and patient home medications list prior to surgery/procedure/anesthetic and documented any changes. Performed airway and anesthesia risk assessments. Anesthesia Type Anesthesia Type: General (h/o PONV) Anesthesia Focused Assessment* Airway Assessment Mouth opens: >3 cm Mallampati Score: II Labs Anesthesia Preop lab: CBC WBC 4.2 K/mm3 (4.4-11.0) L 03/15/25 14:49 03/15/25 RBC 4.25 M/mm3 (4.2-5.4) 03/15/25 14:49 03/15/25 Hgb 13.1 g/dL (12.0-15.0) 03/15/25 14:49 03/15/25 Hct 38.8 % (37-47) 03/15/25 14:49 03/15/25 Plt Count 278 K/mm3 (150-450) 03/15/25 14:49 03/15/25 CHEMISTRY Potassium 4.1 mmol/L (3.3-5.1) 03/15/25 14:49 03/15/25 Sodium 138 mmol/L (133-145) 03/15/25 14:49 03/15/25 Magnesium 1.9 mg/dL (1.5-2.2) 03/15/25 14:49 03/15/25 BUN 17 mg/dL (4-19) 03/15/25 14:49 03/15/25 Creatinine 0.72 mg/dL (0.70-1.20) 03/15/25 14:49 03/15/25 Glucose 96 mg/dL (70-99) 03/15/25 14:49 03/15/25 TSH 0.929 uIU/mL (0.300-4.200) 03/15/25 14:49 02/22 01/15 COAG HCG, Quant < 1 mIU/mL (1-3) 04/02/24 15:56 04/02/24 Urine Test Negative Negative 05/30/25 06:40 05/30/25 Pre-Assessment Diagnosis/Proposed Procedure Planned Operative Procedure(s): Lap Robotic Inguinal Hernia w/mesh Anesthesia History Anesthesia History - mandrel press hand: Anesthesia History - mandrel press hand Hx Hospitalization No 05/21/25 16:07 Any Problems With Anesthesia No 05/21/25 16:07 Cholinesterase deficiency No 05/21/25 16:07 You/Your Family Experience No 05/21/25 16:07 fever (hyperthermia) with Relationship Recent Exposure to Contagious No 12/18/19 08:08 Disease Does patient have nerve No 05/21/25 16:07 stimulator Patient instructed to have device shut off --Does patient have Pacemaker or ICD? When Was Last Pacemaker Check QUESTION #4 FULL TEXT: You/Your Family Experience fever (hyperthermia) with Anesthesia Last Oral Intake Last Oral intake: Last Oral Intake NPO since Meds taken in AM with sips of water? Meds patient instructed to take am of surgery PONV PONV - mandrel press hand: PONV - mandrel press hand Female Yes 05/21/25 16:07 HX of Motion Sickness No 05/21/25 16:07 HX of N/V After Surgery Yes 05/21/25 16:07 Non-Smoker Yes 05/21/25 16:07 Duration of Surgery greater Yes 05/21/25 16:07 than 60 minutes Number of Risk Factors 4 05/21/25 16:07 PONV Score Severe Risk 05/21/25 16:07 Height & Weight Height & Weight: Anesthesia: Height & Weight Height 5 ft 5 in 05/17/25 09:13 Respiratory Assessment Respiratory Assessment - mandrel press hand: Respiratory Tract Infection Hx - mandrel press hand Hx Respiratory Tract Infection No 05/21/25 16:07 STOP Sleep Apnea STOP Sleep Apnea - mandrel press hand: STOP Sleep Apnea - mandrel press hand Hx Hypertension Yes: PER PT, CONTROLLED ON 05/21/25 16:07 MEDS Hx Sleep Apnea No 05/21/25 16:07 CPAP BIPAP Do you snore loudly (louder No 05/21/25 16:07 than talking or can be heard Do you often feel tired/ No 05/21/25 16:07 fatigued/ sleepy during daytime? Has anyone observed you stop No 05/21/25 16:07 breathing during sleep? STOP Results Negative 05/21/25 16:07 QUESTION #5 FULL TEXT : Do you snore loudly (louder than talking or can be heard through closed doors)? 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 Specify any problems Hx of Preganancy in last 3 No 05/21/25 16:07 Months Nurse Filling Out Transfusion MGRIFFITH 05/21/25 16:07 & Questions: Date: 05/21/25 05/21/25 16:07 Time: 16:10 05/21/25 16:07 Patient unable to answer at this time (ie. confused, unrespo /Reproduction History /Reproductive History - mandrel press hand: /Reproductive Hx- mandrel press hand Hx Now No 05/21/25 16:07 Gestational Age (in weeks): EDC: Hx Hx Para Hx Section SAB No 05/21/25 16:07 Active Medications Active Medications: Current Medications Generic Name Dose Route Start Last Admin Trade Name Freq PRN Reason Stop Dose Admin Cefazolin Sodium 2 gm/ Sodium 110 mls @ 200 mls/hr 05/30/25 07:30 Chloride IV 05/30/25 08:02 INTRAOP ONE Lactated Ringer's 1,000 mls @ 15 mls/hr 05/30/25 06:45 IV .Q48H RAMSES PFSH Medical History History of steroid therapy Alcohol use Heartburn PONV (postoperative nausea and vomiting) Former smoker Anxiety Hypokalemia Hypertension Cholelithiasis with chronic cholecystitis Home Medications ?Medication ?Instructions ?Recorded ?Last Taken ?Type amlodipine 10 mg tablet 10 mg PO DAILY #7 tabs 12/0712/18/19 07:15 Rx multivitamin 1 tab PO DAILY 12/07/19 Unkn own History hydrochlorothiazide 25 mg tablet 25 mg PO DAILY Unknown History sertraline 50 mg tablet 50 mg PO QDAY 05/17/25 Unkno wn History Allergy/AdvReac Type Severity Reaction Status Date / Time No Known Allergies Allergy Verified 05/21/25 16:06 Family History Father Cancer kidney Mother Hypertension Brother Asthma Surgical History S/P wisdom tooth extraction Hx of cholecystectomy History of right salpingo-oophorectomy Social History household members: children and other details: mother housing: house current occupational status: employed 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
[2025-05-30] MEDS: Lactated Ringers 1,000 ML 15 ML IV (07:17)
--- NOTE | 2025-05-30 07:18 | HP.PCM_ITS ---
History and Physical Date of Admission: 05/30/25 Date of Service: 05/17/25 MR#: [id number] Acct: [id number] Name: MONICA HENRY Rep #: [id number] : 1975 Provider: Dr. aMry Jo Smith MD Age/Sex: 49/F Location: [facility] Status: Signed Intake Vital Signs 08/08/2108:34 05/17/2509:13 05/17/2509:21 Height 5 ft 5 in 5 ft 5 in Weight: 186 lb BMI 30.9 BP 143/100 H 127/88 H Blood Pressure Location Rt brachial Lt brachial Position Sitting Sitting Respiration 18 Intake Visit Reasons: INGUINAL HERNIA Chief Complaint: right inguinal hernia Assistant Corporate Secretary Required: No Is patient in pain?: Yes (intermittent right groin) Allergies No Known Allergies Allergy (Verified 05/17/25 09:13) Medications ?Medication ?Instructions ?Recorded ?Confirmed ?Type amlodipine 10 mg tablet 10 mg PO DAILY #7 tabs 12/07/19 05/17/25 Rx multivitamin 1 tab PO DAILY 12/07/19 05/17/25 History hydrochlorothiazide 25 mg tablet 25 mg PO DAILY 12/12/19 05/17/25 History sertraline 50 mg tablet 50 mg PO QDAY 05/17/25 05/17/25 History Have you fallen in the past year?: No PFSH Medical History (Updated 05/18/25 @ 11:[address] 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 Patient states that she has had this for about a year or so. Patient is able to reduce. Patient had an ultrasound which did show a fat-containing right inguinal hernia. Patient previously had Vansil incision and had fallopian tube and ovary removed in the past. Patient also had laparoscopic cholecystectomy. Patient has been having discomfort with the right groin no hernia is interested in repair. ROS General General: No weight change, appetite, fatigue, colon cancer or breast cancer HEENT HEENT: No difficulty swallowing, eye injury, eye surgery, swollen glands or hoarseness Endo Endocrine: No thyroid disease, diabetes mellitus, thyroid cancer, Hair loss, heat intolerance or cold intolerance Skin Skin: No rash or changing moles Musc Musculoskeletal: No back problems, arthritis, rheumatoid arthritis, gout or joint pain Cardio Cardiovascular: Yes high blood pressure; No murmur, pacemaker, heart disease, atrial fibrillation, heart attack, heart stent, palpitations, shortness of breath with exertion or chest pain Psych Psychiatric: Yes anxiety; No depression or hearing voices Resp Respiratory: No shortness of breath, No sleep apnea, No cough, No COPD, No asthma, No emphysema and No wheezing Gastro Gastrointestinal: No abdominal pain, No nausea or vomiting, No diarrhea, No constipation, No blood in stool, No acid reflux, No hemorrhoids, No ulcers, Yes gallbladder problem and No black,tarry stools Elian Hematologic: No blood thinners, No blood disorders, No bleeding, No anemia and No blood clots Neuro Neurologic: No numbness and No tingling Exam Const General: cooperative, healthy appearing, comfortable and no acute distress [facility] Head: normocephalic and atraumatic Neck Neck: supple Resp Effort & Inspection: normal respiratory effort Cardio Rate: regular rate GI Inspection: non-distended and scar (Well-healed Pfannenstiel incision) Palpation: soft, hernia (Right inguinal hernia, reducible) and nontender Skin General: no rashes or lesions noted Neuro General: CN's II-XI intact bilaterally Extrem General: normal to inspection Psych Mental Status: mental status grossly normal Attitude: cooperative Assessment and Plan Assessment and Plan (1) Right inguinal hernia: Status: Acute Plan Plan to do a robotic right inguinal hernia repair with mesh possible bilateral. Reviewed the procedure with the patient including the risks, including but not limited to infection, bleeding, paresthesia, chronic pain, injury to small bowel, and recurrence. Also discussed plan to divide the round ligament during the repair in order for the mesh to lay flat. All questions were answered. Mary Jo Smith M.D. Pager: [phone] [facility] [address] [place] [address] [address] [place] [address] Office: [phone] Coding Level of Care Code Off vis,new,level 3 Diagnoses Right inguinal hernia K40.90 Clinical Quality Measures Falls Risk Screening/Assistive Devices Have you fallen in the past year?: No 05/18/25 1103 <Electronically signed by Mary Jo Smith MD> Date Mary Jo Smith MD
[2025-05-30] MEDS: Midazolam 2 MG/2 ML Syringe IV (08:18)
[2025-05-30] MEDS: Cefazolin 1 GM/5 ML Vial 2 GM IV (08:25)
--- NOTE | 2025-05-30 09:28 | PCM.OPRPT ---
Operative Report (Standard) Operative Information Date of Procedure: 05/30/25 Pre-Operative Diagnosis: Right inguinal hernia Post-Operative Diagnosis: Right inguinal hernia, inguinal canal lipoma Surgery/Procedure Performed: Robotic right inguinal hernia repair with mesh group burner machine: Yes Career Services Assistant: Ewelina Jonse Tasks completed by child center assistant: Opening & closing Type of Anesthesia: General/Supplemental RN Documented Start/Stop Times: Operation Date: 05/30/25 08:15 Case Time Into Pre-Op 05/30/25 06:35 Out of Pre-Op 05/30/25 08:14 Anesthesia Start 05/30/25 08:18 Into Room 05/30/25 08:18 Procedure Start 05/30/25 08:34 Procedure End 05/30/25 09:34 Anesthesia End 05/30/25 09:41 Out of Room 05/30/25 09:41 Into Recovery 05/30/25 09:43 Procedure Start Time: 08:34 Procedure Stop Time: 09:34 Select all DRAINS/GRAFTS/IMPLANTS that apply: Prosthetic device Prosthetic device details: ProGrip mesh Special Medications: Ancef 2 g IV x 1 Estimated Blood Loss: 10 cc Specimen collected: No Description of surgery: Indications: 49-year-old female presented with right inguinal hernia which was symptomatic. Robotic right inguinal hernia repair with mesh was elected patient was agreeable. Description of procedure: Patient was brought to operating room placed supine operative table. Timeout was completed verifying correct patient, procedure, site, positioning, special, prior to beginning procedure. General anesthesia was induced. Patient's arms were tucked and padded appropriately. Visiport was used to make the incision at Price's point in the left upper quadrant. Entry into the abdomen was confirmed visually. Laparoscope was placed. Verifying no injury during initial trocar placement. Patient was placed in Trendelenburg position. Two 8 mm trochars were placed along the horizontal line in the midline and in the right upper quadrant. The initial 5 mm trocar was upsized to an 8 mm well under direct visualization. Both the inguinal regions were inspected and right indirect and no hernia on the left. Robot was docked. The median umbilical ligament was divided sharply with electrocautery. Peritoneum was incised with the endoscopic scissors along a line 2 cm above the superior edge of the hernia defect extending from the median umbilical ligament to anterior superior iliac spine. Peritoneal flap was mobilized inferiorly using blunt and sharp dissection. The right indirect hernia sac was inverted and dissected, lipoma of the inguinal canal also reduced. The round ligament was clipped and divided. The inferior epigastric vessels were exposed and symphysis pubis and identified. A ProGrip mesh was used. The mesh was rolled longitudinally into a compact cylinder and passed through the trocar. The cylinder was placed along the inferior aspect of the working space and unrolled into place to completely cover the direct, indirect and femoral spaces. The peritoneal flap was closed over mesh and secured with 3-0 V-Loc suture. After ensuring adequate hemostasis, the trochars were removed and pneumoperitoneum allowed to escape. The skin was closed with 4-0 Monocryl interrupted sutures and Steri-Strips. Patient tolerated procedure well was taken to the postanesthesia care unit in stable condition. Surgical Findings: see op note Complications Complications: No
[2025-05-30] MEDS: Lactated Ringers 2,000 ML 2000 ML IV (09:31)
--- NOTE | 2025-05-30 09:31 | DCINST_ITS ---
Discharge Instructions Diet Discharge Diet: Light diet - advance as tolerated Activity Discharge Activity: May Not Drive (while taking narcotic pain medications.) May shower in (days): 1 Lifting Restrictions: no lifting >20 lbs x 2 wks, no strenuous exercise for 4 wks Dressing / Incision Call your doctor if your incision/area has: Continuous Slow Oozing, Sudden Increased Bleeding, Increased Pain/ Swelling, Increased Redness, Foul Smelling Discharge and Swelling at the incision site Call your doctor if you observe: Fever of 101 or Higher Remove Dressing in: 2 days Cleanse incision/area with: Soap & Water Additional Dressing/Incision Instructions:: Steri-Strips will fall off in 7 to 10 days, if they do not fall off okay to remove after 10 days. Follow Up Care Please Follow Up With: Mary Jo Smith MD When: Call the office for a follow-up appointment 2 weeks; after 5 PM and on the weekends call [phone] with any concerns. Test Results: Test results from this visit will be discussed in further detail at your follow- up appointment, if applicable. Discharge Plan Admission Attending Provider: Mary Jo Smith Primary Care Provider: Jaun Bonds Instructions Print Language: Zimbabwean Discharge Orders/Prescriptions Prescriptions: New hydrocodone-acetaminophen 5-325 mg tablet 1 tab PO Q6H PRN (Reason: pain) 3 Days Qty: 14 0RF Continued multivitamin Tablet,Chewable 1 tab PO DAILY amlodipine 10 mg tablet 10 mg PO DAILY Qty: 7 0RF sertraline 50 mg tablet 50 mg PO QDAY hydrochlorothiazide 25 MG tablet 25 mg PO DAILY Referrals / Follow Up: Jaun Bonds MD [Primary Care Provider] - Disposition Disposition (needs filled in before D/C Order can be placed): Home, Self Care
[2025-05-30] MEDS: fentaNYL 100 MCG/2 ML Ampul 200 MCG IV (09:40)
--- NOTE | 2025-05-30 09:47 | PCM.POST.ANE ---
Anesthesia: Postop Eval I Current Vital Signs Temperature: 97.7 F Pulse Rate: 104 Blood Pressure: 133/77 Respiratory Rate: 16 Pulse Ox: 94 Oxygen Delivery Method: Room Air Assessment Airway patent: Yes Spontaneous unlabored respirations: Yes Mental status: Asleep nausea: No Vomiting: No Anesthesia Complication: No Fluid Hydration Crystalloid volume administer (ml): 1,000 Total IV fluid infused: 1,000 Progress Note Anesthesia document: Postop Eval 1 completed: Yes
--- NOTE | 2025-05-30 11:10 | POSTOPAN2_ITS ---
Anesthesia Postop Eval I Sum Postop Eval Completion status Anesthesia document: Postop Eval 1 completed: Yes Anesthesia Postop Eval I Summary Anesthesia Postop Eval I Summary: Anesthesia Postop Eval I: Assessment Summary Airway patent Yes 05/30/25 09:48 PLATING MACHINE [email or web address] Spontaneous unlabored Yes 05/30/25 09:48 PLATING MACHINE [email or web address] respirations Mental status Asleep 05/30/25 09:48 PLATING MACHINE [email or web address] nausea No 05/30/25 09:48 PLATING MACHINE [email or web address].[email or web address] Vomiting No 05/30/25 09:48 PLATING MACHINE [email or web address].[email or web address] Anesthesia Postop Eval I: Fluid Summary Crystalloid volume administer 1,000 05/30/25 09:48 PLATING MACHINE [email or web address].[email or web address] (ml) Colloids volume administered ( ml) Blood Product volume administered (ml) Total IV fluid infused 1,000 05/30/25 09:48 PLATING MACHINE [email or web address].[email or web address] Anesthesia Postop Eval I: Summary Notes Anesthesia Complication No 05/30/25 09:48 PLATING MACHINE [email or web address] Anesthesia Complication Comment: Post-operative progress note Anesthesia: Postop Eval II Evaluation Mental status: Awake Pain Level: 0 nausea: No Vomiting: No
--- NOTE | 2025-05-30 11:10 | PCM.POSTANE2 ---
Anesthesia Postop Eval I Sum Postop Eval Completion status Anesthesia document: Postop Eval 1 completed: Yes Anesthesia Postop Eval I Summary Anesthesia Postop Eval I Summary: Anesthesia Postop Eval I: Assessment Summary Airway patent Yes 05/30/25 09:48 [email or web address] Spontaneous unlabored Yes 05/30/25 09:48 [email or web address] respirations Mental status Asleep 05/30/25 09:48 [email or web address] nausea No 05/30/25 09:48 [email or web address] Vomiting No 05/30/25 09:48 [email or web address] Anesthesia Postop Eval I: Fluid Summary Crystalloid volume administer 1,000 05/30/25 09:48 [email or web address] (ml) Colloids volume administered ( ml) Blood Product volume administered (ml) Total IV fluid infused 1,000 05/30/25 09:48 [email or web address] Anesthesia Postop Eval I: Summary Notes Anesthesia Complication No 05/30/25 09:48 [email or web address] Anesthesia Complication Comment: Post-operative progress note Anesthesia: Postop Eval II Evaluation Mental status: Awake Pain Level: 0 nausea: No Vomiting: No
== END 2025-05-30 11:58 | disposition home or self-care (01) ==
LOC: SDC 06:32 → AC 06:34
PROVIDERS: Anesthesiology; PCP Family Medicine; Referring Provider Surgery; Visit Provider Surgery
PROC: (CPT 49650; principal; 2025-05-30 07:55)
DX: K40.90 Unilateral inguinal hernia, without obstruction or gangrene, not specified as recurrent (principal); I10 Essential (primary) hypertension; Z87.891 Personal history of nicotine dependence; Z90.49 Acquired absence of other specified parts of digestive tract; D17.6 Benign lipomatous neoplasm of spermatic cord
CPT/HCPCS: 49650; S2900; 55520; 00840; 81025; C1781; J2405